=== PATIENT | male | born 1975 | race American Indian/Alaskan Native ===

== ENCOUNTER 2020-09-10 05:52 | Inpatient (IN) | payer MEDICARE ==
--- NOTE | 2020-09-10 07:39 | Event Note ---
ED Screening Note ED Screening Note: hx HIV and hyperthyroid disease co leg and feet cramps Has had low Mg in past RX thyroid HIV med NSide inpt 2 weeks [facility] -they did nothing but labs- saw doctor- pt was dc home (unclear what was done) This initial assessment/diagnostic orders/clinical plan/treatment(s) is/are subject to change based on patients health status, clinical progression and re- assessment by fellow clinical providers in the ED. Further treatment and workup at subsequent clinical providers discretion. Patient/guardian urged not to elope from the ED as their condition may be serious if not clinically assessed and managed. Initial orders include: labs
[2020-09-10 08:29] LABS: Hematocrit 43.7 % (35.5-45.6); Hemoglobin 15.2 gm/dl (11.8-15.2); Mean Corpuscular HGB Conc 35 % (32-34); Mean Corpuscular Volume 81 fl (84-94); Platelet Count 189 K/mm3 (140-440); Red Blood Count 5.43 M/mm3 (3.65-5.03); Red Cell Distribution Width 13.8 % (13.2-15.2)
[2020-09-10 08:48] LABS: Alanine Aminotransferase 24 units/L (7-56); Albumin 4.5 g/dL (3.9-5); Blood Urea Nitrogen 11 mg/dL (9-20); Calcium 9.7 mg/dL (8.4-10.2); Hemolysis Index 9
[2020-09-10 08:54] LABS: BUN/Creatinine Ratio 16
[2020-09-10] MEDS ORDERED: MAGNESIUM SULFATE 2 GM/50 ML BAG IV ONE (09:05)
[2020-09-10] MEDS ORDERED: SODIUM CHLORIDE 0.9% 1000 ML 1,000 ML IV ONE (09:05)
--- NOTE | 2020-09-10 10:48 | Emergency Department Report ---
HPI - General Chief Complaint: Extremity Injury, Lower Time Seen by Provider: 09/10/20 07:39 - HPI HPI: 44-year-old male with history of hypertension hyperthyroidism on methimazole presents complaining of approximately 2 days of bilateral lower extremity pain, heaviness, and abnormal gait. He states that he feels off balance. He denies any associated dizziness. He also says that for the last 3 weeks he has noticed that he has a right sided facial droop. Has not tried anything for symptoms. He is taking his medications as prescribed. He denies any associated vision change, headache, neck pain, back pain, chest pain, shortness of breath, cough, abdominal pain, nausea/vomiting, focal unilateral weakness, numbness, or any other complaints. ED Past Medical Hx - Past Medical History Previous Medical History?: No Hx Hypertension: Yes Additional medical history: Hyperthyroidism on methimazole - Surgical History Past Surgical History?: Yes Additional Surgical History: Hernia - Social History Smoking Status: Never Smoker Substance Use Type: None - Medications Home Medications: Home Medications Medication Instructions Recorded Confirmed Last Taken Type Biktarvy 50-200-25 mg (Nf) 09/10/20 Unknown History Methimazole [Tapazole] 10 mg PO Q8H 09/10/20 09/10/20 Unknown History ED Review of Systems ROS: Stated complaint: PAIN BOTTOM OF FEET/LT KNEE Other details as noted in HPI Constitutional: denies: chills, fever Eyes: denies: eye pain, vision change ENT: denies: throat pain, congestion Respiratory: denies: cough, shortness of breath Cardiovascular: denies: chest pain, palpitations Gastrointestinal: denies: abdominal pain, nausea, vomiting Genitourinary: denies: dysuria, frequency Musculoskeletal: other (bilateral lower extremity pain). denies: back pain, myalgia Skin: denies: rash Neurological: abnormal gait, other (Feels off balance). denies: headache, numbness Physical Exam - Physical Exam Vital Signs: Vital Signs 09/10/20 06:07 Temperature 97.5 F L Pulse Rate 74 Respiratory 16 Rate Blood Pressure 142/95 O2 Sat by Pulse 99 Oximetry Physical Exam: GENERAL: Well developed and well nourished. No acute distress HEENT: Normocephalic. No obvious signs of trauma. Moist mucous membranes. EYES: Extraocular movements are intact. Pupils are equal round and reactive to light bilaterally. Bilateral exophthalmos NECK: Supple. Trachea is midline. LUNGS: Nonlabored breathing. Equal chest rise bilaterally. Clear to auscultation bilaterally. HEART/CARDIOVASCULAR: Regular rate and rhythm. No murmurs or rubs. VASCULAR: 2+ peripheral pulses. ABDOMEN: Abdomen is soft and nondistended. There is no significant tenderness, guarding or rebound. SKIN: Skin is warm and dry NEURO: Patient is awake, alert, and oriented. There is right facial droop involving both the upper and lower parts of the face. Otherwise comprehensive motor and sensory exam was normal. Normal [id number]. Normal zmew-kb-xwqk bilaterally. Normal speech. MUSCULOSKELETAL: No obvious deformities. No significant tenderness. Normal ROM throughout. . ED Course Vital Signs 09/10/20 06:07 Temperature 97.5 F L Pulse Rate 74 Respiratory 16 Rate Blood Pressure 142/95 O2 Sat by Pulse 99 Oximetry ED Medical Decision Making - Lab Data Result diagrams: 09/10/20 11:55 09/10/20 08:02 - EKG Data -: EKG Interpreted by Tn - EKG Data 09/10/20 12:09 Normal sinus rhythm. Normal axis. First-degree AV block, otherwise normal intervals. No ectopy. No significant ST segment or T wave abnormalities. - Radiology Data CT BRAIN: 09/10/2020 INDICATION / CLINICAL INFORMATION: Stroke symptoms. COMPARISON: None available. FINDINGS: BRAIN/INTRACRANIAL STRUCTURES: Unenhanced CT images of the brain demonstrate no evidence of acute intracranial abnormality. Ventricles and sulci are normal in size and shape. There is no evidence of ischemic injury, hemorrhage, or mass. There are no abnormal extra- axial fluid collections. EXTRACRANIAL STRUCTURES: Unremarkable. IMPRESSION: Negative unenhanced CT of the brain. All CT scans at this location are performed using dose reduction to ALARA by means of automated ex posure control. Signer Name: Lucas Soto MD Signed: 09/10/2020 10:28 AM Workstation Name: [id number] - Medical Decision Making 44-year-old male history of hypothyroidism and hypertension presents complaining of approximately 2 days of bilateral lower extremity pain and unsteady gait. He reports that he did not know about his unsteady gait until today in triage. He is also noted to have a right facial droop on exam but he says that has been present for 3 weeks. On physical examination, he has a mild right facial droop but the motor and sensory exams are normal. He has a normal slgkwa-hxaq-dticly and normal ewqq-hx-ixyx bilaterally. Given that he is outside the window for any kind of intervention, stroke alert was not called. Nonetheless we will perform full stroke work-up with labs and CT as well as bilateral DVT ultrasound. If initial head CT is negative for ICH will give aspirin Noncon CT of the head reveals no evidence of ICH or other acute abnormalities. We will therefore administer aspirin. I went and reassessed the patient and had him walk in front of me, he is noted to have an unsteady gait with very small steps. In light of this, will obtain teleneurology consult for further recommendations. I spoke with Dr. Baker, teleneurologist who has seen and assessed the patient. He also feels that the patient has an abnormal neurologic exam but is nonspecific. He did not detect a right facial droop. He recommends admission for broad work-up with MRI and further labs. We will therefore admit to medicine for further work-up and management. All this was discussed with the patient who expressed understanding agreement with the plan of care. I spoke with Dr. Moore, the hospitalist who accepts the patient for admission and will assume care. He understands that bilateral DVT ultrasounds are still pending. I did reassess the patient at Dr. Baker's advice and noted that the patient is hyporeflexive with 1+ deep tendon reflexes at the patella bilaterally. Critical care attestation.: If time is entered above; I have spent that time in minutes in the direct care of this critically ill patient, excluding procedure time. ED Disposition Clinical Impression: Gait disturbance, Balance disorder Disposition: OP ADMIT IP TO THIS HOSP Is pt being admited?: Yes Condition: Stable
--- NOTE | 2020-09-10 11:33 | Cat Scan Report ---
CT BRAIN: 09/10/2020 INDICATION / CLINICAL INFORMATION: Stroke symptoms. COMPARISON: None available. FINDINGS: BRAIN/INTRACRANIAL STRUCTURES: Unenhanced CT images of the brain demonstrate no evidence of acute int racranial abnormality. Ventricles and sulci are normal in size and shape. There is no evidence of ischemic injury, hemorrhage, or mass. There are no abnormal extra-axial fluid collections. EXTRACRANIAL STRUCTURES: Unremarkable. IMPRESSION: Negative unenhanced CT of the brain. All CT scans at this location are performed using dose reduction to ALARA by means of automated expos ure control. Signer Name: Lucas Soto MD Signed: 09/10/2020 11:28 AM Workstation Name: [id number]
[2020-09-10] MEDS ORDERED: ASPIRIN 325 MG TAB PO ONE (12:06)
[2020-09-10 12:43] LABS: Basophils % (Auto) 0.6 % (0.0-1.8); Eosinophils # (Auto) 0.2 K/mm3 (0.0-0.4); Hematocrit 45.4 % (35.5-45.6); Lymphocytes # (Auto) 1.5 K/mm3 (1.2-5.4); Lymphocytes % (Auto) 40.9 % (13.4-35.0); Mean Corpuscular HGB Conc 33 % (32-34); Mean Corpuscular Volume 82 fl (84-94); Monocytes # (Auto) 0.5 K/mm3 (0.0-0.8); Monocytes % (Auto) 13.1 % (0.0-7.3); Platelet Count 183 K/mm3 (140-440); Red Blood Count 5.54 M/mm3 (3.65-5.03); Red Cell Distribution Width 13.6 % (13.2-15.2)
[2020-09-10 12:58] LABS: INR 1.13 (0.87-1.13)
[2020-09-10 12:59] LABS: Partial Thromboplastin Time 28.6 Sec. (24.2-36.6); Thrombin Time 16.1 Sec. (15.1-19.6)
--- NOTE | 2020-09-10 13:05 | Consultation ---
History of Present Illness Consult date: 09/10/20 Medications and Allergies Allergies Allergy/AdvReac Type Severity Reaction Status Date / Time No Known Allergies Allergy Verified 02/02/16 07:29 Home Medications Medication Instructions Recorded Confirmed Last Taken Type No Known Home Medications [No 02/01/16 02/01/16 Unknown History Reported Home Medications] Physical Examination - Vital Signs Vital Signs: Vital Signs Temp Pulse Resp BP Pulse Ox 97.5 F L 74 16 142/95 99 09/10/20 06:07 09/10/20 06:07 09/10/20 06:07 09/10/20 06:07 09/10/20 06:07 Results - Laboratory Findings CBC and BMP: 09/10/20 11:55 09/10/20 08:02 Abnormal Lab Findings: Abnormal Labs 09/10/20 09/10/20 09/10/20 08:02 08:02 08:02 WBC RBC 5.43 H MCV 81 L MCH MCHC 35 H Lymph % (Auto) [place] % (Auto) Eos % (Auto) Seg Neutrophils # PT Creatinine 0.7 L Total Bilirubin 2.20 H Alkaline Phosphatase 138 H TSH Free T4 1.68 H 09/10/20 09/10/20 09/10/20 08:02 11:55 11:55 WBC 3.8 L RBC 5.54 H MCV 82 L MCH 27 L MCHC Lymph % (Auto) 40.9 H [place] % (Auto) 13.1 H Eos % (Auto) 5.0 H Seg Neutrophils # 1.5 L PT 15.1 H Creatinine Total Bilirubin Alkaline Phosphatase TSH < 0.005 L Free T4 Assessment and Plan [facility] Consult Note # Demographics Consult Type: General Neurology Patient Location: Emergency Room First Name: Rex Last Name: Eb Date of : 1975 Age: 44 Gender: Male Time of Initial Page (Eastern Time): 09/10/2020, 12:13 Time of Return Call (Eastern Time): 09/10/2020, 12:21 # HPI History: 44 yo man with history of hyperthyroidism presents with bilateral leg pain, unsteadiness, right facial droop for a few days. According to the pateint his symptoms started 2 days ago with pain from the knees to the toes. He has been unsteady on his feet and has fallen. # Exam SBP: 130 DBP: 83 Mental Status: sleepy Language: no aphasia no dysarthria Cranial Nerves: extra ocular movements intact no facial droop Motor: no drift Sensory: Reported decreased sensation in lower extremities from knees down Additional Exam Findings: Somnolent, difficulty staying awake. Exam limited by inherent limitation of telemedicine (unable to test sensation, reflexes, mild weakness) as well as patient being somnolent and difficulty staying awake, unable to provide coherrent history # ROS Genitourinary: Denies any urinary or fecal incontinence # Assessment Impression: Leg pain and unsteadiness causing difficulty walking and falls. Exam and history is limited by patient being somnolent with difficulty staying awake. # Plan Labs: B12 Tox screen Imaging: (urgency: routine): MRI Brain with AND without contrast MRI C spine MRI T spine MRI L spine Therapy/Evaluation: NPO until swallow evaluation PT/OT evaluation DVT Prophylaxis: SCD chemical DVT prophylaxis Other: telemetry monitoring I have discussed my recommendations with the referring provider Recommendations: Admit for further workup Metabolic and infectious workup Tox screen MRI brain and C,T, L spine (with and without contrast) Labwork for neuropathy: B12 level, CK level, Hgb A1c, HIV, SPEP, UPEP, RENNY Disposition: admit # Logistics Telemedicine: Interactive 2 way audio and visual telecommunication technology was utilized during this visit
[2020-09-10 13:07] LABS: Creatine Kinase MB 19.4 ng/mL (0.0-4.0)
--- NOTE | 2020-09-10 15:30 | Vascular Lab Report ---
DUPLEX DOPPLER LOWER EXTREMITY VEINS, BILATERAL INDICATION / CLINICAL INFORMATION: lower extremity pain. TECHNIQUE: Duplex doppler imaging was performed through the veins of both lower extremities using venous rut catracho and other maneuvers. COMPARISON: None available. FINDINGS: RIGHT COMMON FEMORAL VEIN: Negative. RIGHT FEMORAL VEIN: Negative. RIGHT POPLITEAL VEIN: Negative. RIGHT CALF VEINS: Negative. LEFT COMMON FEMORAL VEIN: Negative. LEFT FEMORAL VEIN: Negative. LEFT POPLITEAL VEIN: Negative. LEFT CALF VEINS: Negative. ADDITIONAL FINDINGS: Prominent lymph nodes in the right groin measures 1 cm short axis, not technical ly enlarged according to ultrasound criteria. IMPRESSION: 1. No sonographic evidence for DVT in either lower extremity. Signer Name: Archie Mcnally MD Signed: 09/10/2020 3:25 PM Workstation Name: [id number]
[2020-09-10 21:19] LABS: Bilirubin,Urine NEG (Negative); Blood,Urine NEG (Negative); Color,Urine Yellow (Yellow); Mucus,Urine FEW /HPF; WBC,Urine < 1.0 /HPF (0.0-6.0)
[2020-09-10 21:27] LABS: Amphetamine Screen,Urine Negative; Benzodiazepines Screen,Urine Negative; Cannabinoid Screen,Urine Negative; Cocaine Screen,Urine Negative; Methadone Screen,Urine Negative; Opiate Screen,Urine Negative
[2020-09-10] MEDS ORDERED: IBUPROFEN 600 MG TAB PO PRN (21:52)
[2020-09-10] MEDS ORDERED: methIMAzole 5 MG TAB PO SCH (22:00)
[2020-09-10] MEDS ORDERED: ACETAMINOPHEN 325 MG TAB PO PRN (22:11)
[2020-09-10] MEDS ORDERED: METOCLOPRAMIDE 10 MG/2 ML INJ IV PRN (22:11)
[2020-09-10] MEDS ORDERED: HYDROmorphone 1 MG/1 ML INJ IV PRN (22:11)
[2020-09-10] MEDS ORDERED: ONDANSETRON 4 MG/2 ML INJ IV PRN (22:11)
--- NOTE | 2020-09-10 22:47 | History and Physical Report ---
History of Present Illness Date of examination: 09/10/20 Date of admission: 09/10/20 13:54 Chief complaint: Palpitation and unsteady gait for the last 1 week History of present illness: 44-year-old male with history of hypertension hypothyroidism on methimazole 10 mg 3 times a day comes in for 2 days of bilateral lower extremity pain and weakness and heaviness. Also unsteady gait. He states that he feels off balance. Patient was diagnosed with hypothyroidism 2 months ago and was started on methimazole 10 mg 3 times a day. Patient states that is compliant with methimazole. Patient is also concerned about his bulging eyes. No thyroid swelling. Patient has history of HIV. Pain below the knees and weakness below the knees and also both thighs. Is unsteady because of his weakness in both the legs. - Past Medical History Previous Medical History?: No --Hypertension: Yes Additional medical history: Hyperthyroidism on methimazole - Surgical History Hernia - Social History Smoking Status: Never Smoker Substance Use Type: None -Family history Htn - Medications Home Medications: Home Medications Medication Instructions Recorded Confirmed Last Taken Type No Known Home Medications [No 02/01/16 02/01/16 Unknown History Reported Home Medications] Review of Systems ROS: Stated complaint: PAIN BOTTOM OF FEET/LT KNEE Other details as noted in HPI Constitutional: denies: chills, fever Eyes: denies: eye pain, vision change ENT: denies: throat pain, congestion Respiratory: denies: cough, shortness of breath Cardiovascular: denies: chest pain, palpitations Gastrointestinal: denies: abdominal pain, nausea, vomiting Genitourinary: denies: dysuria, frequency Musculoskeletal: other (bilateral lower extremity pain). Weakness and myalgias present. Skin: denies: rash Neurological: abnormal gait, other (Feels off balance). denies: headache, numbness Medications and Allergies Allergies Allergy/AdvReac Type Severity Reaction Status Date / Time No Known Allergies Allergy Verified 02/02/16 07:29 Home Medications Medication Instructions Recorded Confirmed Last Taken Type Biktarvy 50-200-25 mg (Nf) 1 mg PO QDAY 09/10/20 09/11/20 09/08/20 09:00 History Methimazole [Tapazole] 10 mg PO Q8H 09/10/20 09/11/20 09/09/20 09:00 History Active Meds: Active Medications Acetaminophen (Acetaminophen 325 Mg Tab) 650 mg PO Q4H PRN PRN Reason: Pain MILD(1-3)/Fever >100.5/PADRON Hydromorphone HCl (Hydromorphone 1 Mg/1 Ml Inj) 0.5 mg IV Q3H PRN PRN Reason: Pain , Severe (7-10) Sodium Chloride (Nacl 0.9% 1000 Ml) 1,000 mls @ 125 mls/hr IV DIRECT ETELVINA Ibuprofen (Ibuprofen 600 Mg Tab) 600 mg PO Q6H PRN PRN Reason: Pain, Mild (1-3) Last Admin: 09/10/20 22:25 Dose: 600 mg Documented by: Methimazole (Methimazole 5 Mg Tab) 20 mg PO Q8H ETELVINA Metoclopramide HCl (Metoclopramide 10 Mg/2 Ml Inj) 10 mg IV Q6H PRN PRN Reason: Nausea And Vomiting Ondansetron HCl (Ondansetron 4 Mg/2 Ml Inj) 4 mg IV Q8H PRN PRN Reason: Nausea And Vomiting Oxycodone/Acetaminophen (Oxycodone /Acetaminophen 5-325mg Tab) 1 tab PO Q6H PRN PRN Reason: Pain, Moderate (4-6) Propranolol HCl (Propranolol 10 Mg Tab) 20 mg PO Q12HR ETELVINA Propylthiouracil (Propylthiouracil 50 Mg Tab) 100 mg PO Q8H ETELVINA Sodium Chloride (Sodium Chloride 0.9% 10 Ml Flush Syringe) 10 ml IV BID ETELVINA Sodium Chloride (Sodium Chloride 0.9% 10 Ml Flush Syringe) 10 ml IV PRN PRN PRN Reason: LINE FLUSH Exam - Constitutional Vitals: Temp Pulse Resp BP Pulse Ox 97.4 F L 107 H 17 111/63 100 09/10/20 21:00 09/10/20 22:10 09/10/20 22:25 09/10/20 22:10 09/10/20 22:10 General appearance: Present: no acute distress, well-nourished - EENT Eyes: Present: PERRL ENT: hearing intact, clear oral mucosa, other (Exophthalmos present) - Neck Neck: Present: supple, normal ROM - Respiratory Respiratory effort: normal Respiratory: bilateral: CTA - Cardiovascular Heart rate: 98 Rhythm: regular Heart Sounds: Present: S1 & S2. Absent: rub, click - Extremities Extremities: pulses symmetrical, No edema Peripheral Pulses: within normal limits - Abdominal General gastrointestinal: Present: soft, non-tender, non-distended, normal bowel sounds Male genitourinary: Present: normal - Integumentary Integumentary: Present: clear, warm, dry - Musculoskeletal Musculoskeletal: strength equal bilaterally, generalized weakness, other (4/5 power in both lower extremities distal and proximal muscles) - Psychiatric Psychiatric: appropriate mood/affect, intact judgment & insight - Neurologic Neurologic: CNII-XII intact, moves all extremities, gait normal (Unsteady gait secondary to weakness in both lower extremities) - Allied Health Allied health notes reviewed: nursing, PT, OT, case management HEART Score - HEART Score Troponin: Troponin T < 0.010 ng/mL (0.00-0.029) 09/10/20 11:55 Results - Labs CBC & Chem 7: 09/11/20 04:54 09/11/20 04:54 Labs: Laboratory Last Values WBC 3.8 K/mm3 (4.5-11.0) L 09/10/20 11:55 RBC 5.54 M/mm3 (3.65-5.03) H 09/10/20 11:55 Hgb 15.0 gm/dl (11.8-15.2) 09/10/20 11:55 Hct 45.4 % (35.5-45.6) 09/10/20 11:55 MCV 82 fl (84-94) L 09/10/20 11:55 MCH 27 pg (28-32) L 09/10/20 11:55 MCHC 33 % (32-34) 09/10/20 11:55 RDW 13.6 % (13.2-15.2) 09/10/20 11:55 Plt Count 183 K/mm3 (140-440) 09/10/20 11:55 Lymph % (Auto) 40.9 % (13.4-35.0) H 09/10/20 11:55 [place] % (Auto) 13.1 % (0.0-7.3) H 09/10/20 11:55 Eos % (Auto) 5.0 % (0.0-4.3) H 09/10/20 11:55 Baso % (Auto) 0.6 % (0.0-1.8) 09/10/20 11:55 Lymph # (Auto) 1.5 K/mm3 (1.2-5.4) 09/10/20 11:55 [place] # (Auto) 0.5 K/mm3 (0.0-0.8) 09/10/20 11:55 Eos # (Auto) 0.2 K/mm3 (0.0-0.4) 09/10/20 11:55 Baso # (Auto) 0.0 K/mm3 (0.0-0.1) 09/10/20 11:55 Seg Neutrophils % 40.4 % (40.0-70.0) 09/10/20 11:55 Seg Neutrophils # 1.5 K/mm3 (1.8-7.7) L 09/10/20 11:55 PT 15.1 Sec. (12.2-14.9) H 09/10/20 11:55 INR 1.13 (0.87-1.13) 09/10/20 11:55 APTT 28.6 Sec. (24.2-36.6) 09/10/20 11:55 Thrombin Time 16.1 Sec. (15.1-19.6) 09/10/20 11:55 Sodium 137 mmol/L (137-145) 09/10/20 08:02 Potassium 4.5 mmol/L (3.6-5.0) 09/10/20 08:02 Chloride 98.7 mmol/L (98-107) 09/10/20 08:02 Carbon Dioxide 29 mmol/L (22-30) 09/10/20 08:02 Anion Gap 14 mmol/L 09/10/20 08:02 BUN 11 mg/dL (9-20) 09/10/20 08:02 Creatinine 0.7 mg/dL (0.8-1.3) L 09/10/20 08:02 Estimated GFR > 60 ml/min 09/10/20 08:02 BUN/Creatinine Ratio 16 % 09/10/20 08:02 Glucose 82 mg/dL (75-100) 09/10/20 08:02 Calcium 9.7 mg/dL (8.4-10.2) 09/10/20 08:02 Phosphorus 3.40 mg/dL (2.5-4.5) 09/10/20 08:02 Magnesium 1.90 mg/dL (1.7-2.3) 09/10/20 08:02 Total Bilirubin 2.20 mg/dL (0.1-1.2) H 09/10/20 08:02 AST 32 units/L (5-40) 09/10/20 08:02 ALT 24 units/L (7-56) 09/10/20 08:02 Alkaline Phosphatase 138 units/L (35-129) H 09/10/20 08:02 Total Creatine Kinase 484 units/L (55-170) H 09/10/20 11:55 CK-MB (CK-2) 19.4 ng/mL (0.0-4.0) H 09/10/20 11:55 CK-MB (CK-2) Rel Index 4.0 (0-4) 09/10/20 11:55 Troponin T < 0.010 ng/mL (0.00-0.029) 09/10/20 11:55 Total Protein 7.5 g/dL (6.3-8.2) 09/10/20 08:02 Albumin 4.5 g/dL (3.9-5) 09/10/20 08:02 Albumin/Globulin Ratio 1.5 % 09/10/20 08:02 TSH < 0.005 mlU/mL (0.270-4.200) L 09/10/20 08:02 Free T4 1.68 ng/dL (0.76-1.46) H 09/10/20 08:02 Urine Color Yellow (Yellow) 09/10/20 20:49 Urine Turbidity Clear (Clear) 09/10/20 20:49 Urine pH 5.0 (5.0-7.0) 09/10/20 20:49 Ur Specific [place] 1.021 (1.003-1.030) 09/10/20 20:49 Urine Protein 30 mg/dl mg/dL (Negative) 09/10/20 20:49 Urine Glucose (UA) Neg mg/dL (Negative) 09/10/20 20:49 Urine Ketones 20 mg/dL (Negative) 09/10/20 20:49 Urine Blood Neg (Negative) 09/10/20 20:49 Urine Nitrite Neg (Negative) 09/10/20 20:49 Urine Bilirubin Neg (Negative) 09/10/20 20:49 Urine Urobilinogen 4.0 mg/dL (<2.0) 09/10/20 20:49 Ur Leukocyte Esterase Neg (Negative) 09/10/20 20:49 Urine WBC (Auto) < 1.0 /HPF (0.0-6.0) 09/10/20 20:49 Urine RBC (Auto) 1.0 /HPF (0.0-6.0) 09/10/20 20:49 Urine Mucus Few /HPF 09/10/20 20:49 Urine Opiates Screen Negative 09/10/20 20:49 Urine Methadone Screen Negative 09/10/20 20:49 Ur Barbiturates Screen Negative 09/10/20 20:49 Ur Phencyclidine Scrn Negative 09/10/20 20:49 Ur Amphetamines Screen Negative 09/10/20 20:49 U Benzodiazepines Scrn Negative 09/10/20 20:49 Urine Cocaine Screen Negative 09/10/20 20:49 U Marijuana (THC) Screen Negative 09/10/20 20:49 Drugs of Abuse Note Disclamer 09/10/20 20:49 Plasma/Serum Alcohol < 0.01 % (0-0.07) 09/10/20 11:55 Short CBC 09/10/20 09/10/20 09/11/20 Range/Units 08:02 11:55 04:54 WBC 4.6 3.8 L 4.0 L (4.5-11.0) K/mm3 Hgb 15.2 15.0 14.0 (11.8-15.2) gm/dl Hct 43.7 45.4 42.6 (35.5-45.6) % Plt Count 189 183 187 (140-440) K/mm3 [facility] 09/10/20 09/11/20 08:02 04:54 Sodium 137 140 Potassium 4.5 4.2 Chloride 98.7 103.8 Carbon Dioxide 29 28 BUN 11 11 Creatinine 0.7 L 0.7 L Glucose 82 97 Calcium 9.7 8.3 L Cardiac Enzymes 09/10/20 Range/Units 11:55 Total Creatine Kinase 484 H (55-170) units/L CK-MB (CK-2) 19.4 H (0.0-4.0) ng/mL Troponin T < 0.010 (0.00-0.029) ng/mL Liver Function 09/10/20 09/11/20 Range/Units 08:02 04:54 Total Bilirubin 2.20 H 1.30 H (0.1-1.2) mg/dL AST 32 20 (5-40) units/L ALT 24 18 (7-56) units/L Alkaline Phosphatase 138 H 124 (35-129) units/L Albumin 4.5 3.6 L (3.9-5) g/dL Urine 09/10/20 Range/Units 20:49 Urine Color Yellow (Yellow) Urine pH 5.0 (5.0-7.0) Ur Specific [place] 1.021 (1.003-1.030) Urine Protein 30 mg/dl (Negative) mg/dL Urine Glucose (UA) Neg (Negative) mg/dL Assessment and Plan Advance Directives: Yes (Full code) VTE prophylaxis?: Chemical Plan of care discussed with patient/family: Yes - Patient Problems (1) Thyrotoxicosis Current Visit: Yes Status: Acute Plan to address problem: Patient's methimazole was increased from 10 mg to 20 mg 3 times a day Max dose that can be used is a 60 mg/day Patient has I T4 and low TSH Patient needs radioactive iodine uptake as outpatient/follow-up with endocrinology for ablation of thyroid activity Propylthiouracil 100 mg 3 times a day added Propranolol 20 mg twice a day added (2) Myopathy Current Visit: Yes Status: Acute Plan to address problem: 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 Patient is unsteady because of his myopathy Does not need extensive neurology work-up as suggested by telemetry neurology Will defer to in-house neurology (3) Rhabdomyolysis Current Visit: Yes Status: Acute Qualifiers: Rhabdomyolysis type: non-traumatic Qualified Code(s): M62.82 - Rhabdomyolysis Plan to address problem: IV fluids for now (4) Unsteady gait Current Visit: Yes Status: Acute Plan to address problem: Probably secondary to myopathy Neurological causes to be ruled out (5) HIV (human immunodeficiency virus infection) Current Visit: Yes Status: Chronic Qualifiers: HIV symptom status: asymptomatic, with no history of HIV-related illness Qualified Code(s): Z21 - Asymptomatic human immunodeficiency virus [HIV] infection status Plan to address problem: Continue Biktarvy (6) DVT prophylaxis Current Visit: Yes Status: Acute Plan to address problem: On heparin and GI prophylaxis
[2020-09-10] MEDS: propylthiouraciL 50 MG TAB PO SCH (23:22)
[2020-09-10] MEDS: methIMAzole 5 MG TAB PO SCH (23:23)
[2020-09-10] MEDS: SODIUM CHLORIDE 0.9% 1000 ML 1,000 ML IV SCH (23:24)
[2020-09-10] MEDS: PROPRANOLOL 10 MG TAB PO SCH (23:28)
[2020-09-11 05:12] LABS: Hematocrit 42.6 % (35.5-45.6); Mean Corpuscular HGB Conc 33 % (32-34); Mean Corpuscular Volume 82 fl (84-94); Platelet Count 187 K/mm3 (140-440); Red Blood Count 5.21 M/mm3 (3.65-5.03); Red Cell Distribution Width 13.7 % (13.2-15.2)
[2020-09-11 05:40] LABS: Alanine Aminotransferase 18 units/L (7-56); Albumin 3.6 g/dL (3.9-5); Blood Urea Nitrogen 11 mg/dL (9-20); Calcium 8.3 mg/dL (8.4-10.2); Hemolysis Index 5
[2020-09-11 05:49] LABS: BUN/Creatinine Ratio 16
[2020-09-11] MEDS: propylthiouraciL 50 MG TAB PO SCH ×3 (06:21→23:03)
[2020-09-11] MEDS: methIMAzole 5 MG TAB PO SCH ×3 (06:24→23:03)
--- NOTE | 2020-09-11 07:13 | Event Note ---
Date: 09/10/20 Telemetry neurology notes reviewed Suggested multiple imaging studies In view of myopathy I feel these tests are unnecessary Will defer to in-house neurology
--- NOTE | 2020-09-11 09:47 | Consultation ---
History of Present Illness Consult date: 09/11/20 Reason for Consult: Unsteady gait and weakness History of present illness: Palpitation and unsteady gait for the last 1 week History of present illness: 44-year-old male with history of hypertension hyperthyroidism on methimazole 10 mg 3 times a day comes in for 2 days of bilateral lower extremity pain and weakness and heaviness. Also unsteady gait. He states that he feels off balance. Patient was diagnosed with hypothyroidism 2 months ago and was started on methimazole 10 mg 3 times a day. Patient states that is compliant with methimazole. Patient is also concerned about his bulging eyes. No thyroid swel ling. Patient has history of HIV. Pain below the knees and weakness below the knees and also both thighs. Is unsteady because of his weakness in both the legs. - Past Medical History Previous Medical History?: No --Hypertension: Yes Additional medical history: Hyperthyroidism on methimazole - Surgical History Hernia - Social History Smoking Status: Never Smoker Substance Use Type: None -Family history Htn - Medications Home Medications: Home Medications Medication Instructions Recorded Confirmed Last Taken Type No Known Home Medications [No 02/01/16 02/01/16 Unknown History Reported Home Medications] Review of Systems ROS: Stated complaint: PAIN BOTTOM OF FEET/LT KNEE Other details as noted in HPI Constitutional: denies: chills, fever Eyes: denies: eye pain, vision change ENT: denies: throat pain, congestion Respiratory: denies: cough, shortness of breath Cardiovascular: denies: chest pain, palpitations Gastrointestinal: denies: abdominal pain, nausea, vomiting Genitourinary: denies: dysuria, frequency Musculoskeletal: other (bilateral lower extremity pain). Weakness and myalgias present. Skin: denies: rash Neurological: abnormal gait, other (Feels off balance). denies: headache, numbness Medications and Allergies Allergies Allergy/AdvReac Type Severity Reaction Status Date / Time No Known Allergies Allergy Verified 02/02/16 07:29 Home Medications Medication Instructions Recorded Confirmed Last Taken Type Biktarvy 50-200-25 mg (Nf) 1 mg PO QDAY 09/10/20 09/11/20 09/08/20 09:00 History Methimazole [Tapazole] 10 mg PO Q8H 09/10/20 09/11/20 09/09/20 09:00 History Active Meds: Active Medications Acetaminophen (Acetaminophen 325 Mg Tab) 650 mg PO Q4H PRN PRN Reason: Pain MILD(1-3)/Fever >100.5/PADRON Hydromorphone HCl (Hydromorphone 1 Mg/1 Ml Inj) 0.5 mg IV Q3H PRN PRN Reason: Pain , Severe (7-10) Sodium Chloride (Nacl 0.9% 1000 Ml) 1,000 mls @ 125 mls/hr IV DIRECT ETELVINA Ibuprofen (Ibuprofen 600 Mg Tab) 600 mg PO Q6H PRN PRN Reason: Pain, Mild (1-3) Last Admin: 09/10/20 22:25 Dose: 600 mg Documented by: Methimazole (Methimazole 5 Mg Tab) 20 mg PO Q8H ETELVINA Metoclopramide HCl (Metoclopramide 10 Mg/2 Ml Inj) 10 mg IV Q6H PRN PRN Reason: Nausea And Vomiting Ondansetron HCl (Ondansetron 4 Mg/2 Ml Inj) 4 mg IV Q8H PRN PRN Reason: Nausea And Vomiting Oxycodone/Acetaminophen (Oxycodone /Acetaminophen 5-325mg Tab) 1 tab PO Q6H PRN PRN Reason: Pain, Moderate (4-6) Propranolol HCl (Propranolol 10 Mg Tab) 20 mg PO Q12HR ETELVINA Propylthiouracil (Propylthiouracil 50 Mg Tab) 100 mg PO Q8H ETELVINA Sodium Chloride (Sodium Chloride 0.9% 10 Ml Flush Syringe) 10 ml IV BID ETELVINA Sodium Chloride (Sodium Chloride 0.9% 10 Ml Flush Syringe) 10 ml IV PRN PRN PRN Reason: LINE FLUSH Medications and Allergies Allergies Allergy/AdvReac Type Severity Reaction Status Date / Time No Known Allergies Allergy Verified 02/02/16 07:29 Home Medications Medication Instructions Recorded Confirmed Last Taken Type Biktarvy 50-200-25 mg (Nf) 1 mg PO QDAY 09/10/20 09/11/20 09/08/20 09:00 History Methimazole [Tapazole] 10 mg PO Q8H 09/10/20 09/11/20 09/09/20 09:00 History Active Meds: Active Medications Acetaminophen (Acetaminophen 325 Mg Tab) 650 mg PO Q4H PRN PRN Reason: Pain MILD(1-3)/Fever >100.5/PADRON Emtricitabine (Emtricitabine 200 Mg Cap) 200 mg PO QDAY PENDING SALE TO [facility] Hydromorphone HCl (Hydromorphone 1 Mg/1 Ml Inj) 0.5 mg IV Q3H PRN PRN Reason: Pain , Severe (7-10) Sodium Chloride (Nacl 0.9% 1000 Ml) 1,000 mls @ 125 mls/hr IV DIRECT PENDING SALE TO [facility] Last Admin: 09/10/20 23:24 Dose: 125 mls/hr Documented by: Ibuprofen (Ibuprofen 600 Mg Tab) 600 mg PO Q6H PRN PRN Reason: Pain, Mild (1-3) Last Admin: 09/10/20 22:25 Dose: 600 mg Documented by: Methimazole (Methimazole 5 Mg Tab) 20 mg PO Q8HR PENDING SALE TO [facility] Last Admin: 09/11/20 06:24 Dose: 20 mg Documented by: Metoclopramide HCl (Metoclopramide 10 Mg/2 Ml Inj) 10 mg IV Q6H PRN PRN Reason: Nausea And Vomiting Ondansetron HCl (Ondansetron 4 Mg/2 Ml Inj) 4 mg IV Q8H PRN PRN Reason: Nausea And Vomiting Oxycodone/Acetaminophen (Oxycodone /Acetaminophen 5-325mg Tab) 1 tab PO Q6H PRN PRN Reason: Pain, Moderate (4-6) Propranolol HCl (Propranolol 10 Mg Tab) 20 mg PO Q12HR PENDING SALE TO [facility] Last Admin: 09/10/20 23:28 Dose: 20 mg Documented by: Propylthiouracil (Propylthiouracil 50 Mg Tab) 100 mg PO Q8HR PENDING SALE TO [facility] Last Admin: 09/11/20 06:21 Dose: 100 mg Documented by: Sodium Chloride (Sodium Chloride 0.9% 10 Ml Flush Syringe) 10 ml IV BID PENDING SALE TO [facility] Sodium Chloride (Sodium Chloride 0.9% 10 Ml Flush Syringe) 10 ml IV PRN PRN PRN Reason: LINE FLUSH Tenofovir Disoproxil Fumarate (Tenofovir 300 Mg Tab) 300 mg PO QDAY PENDING SALE TO [facility] Physical Examination - Vital Signs Vital Signs: Vital Signs Temp Pulse Resp BP Pulse Ox 97.5 F L 74 16 142/95 99 09/10/20 06:07 09/10/20 06:07 09/10/20 06:07 09/10/20 06:07 09/10/20 06:07 - Constitutional General appearance: uncomfortable - EENT EENT: Present: PERRL, mucous membranes moist - Respiratory Respiratory: Present: chest non-tender, lungs clear, rhonchi - Cardiovascular Cardiovascular: Present: regular rate, normal S1, normal S2 Extremities: Present: no peripheral edema bilatateraly, no clubbing, cyanosis - Gastrointestinal Gastrointestinal: Present: normoactive bowel sounds - Integumentary Integumentary: Present: normal - Neurologic Cranial nerve examination: anosmic, PERRL, EOMI, VFF, other (bulging eyes with EOM is intact , no facial asymmetry no facial weakness) Speech examination: intact Sensorimotor examination: intact (motor 4+/5 bilateral upper and lower with subjective sensory complain reflexes are suppressed, gait could not do due to IV ) Results - Laboratory Findings CBC and BMP: 09/11/20 04:54 09/11/20 04:54 Abnormal Lab Findings: Abnormal Labs 09/10/20 09/10/20 09/10/20 08:02 08:02 08:02 WBC RBC 5.43 H MCV 81 L MCH MCHC 35 H Lymph % (Auto) [place] % (Auto) Eos % (Auto) Seg Neutrophils # PT Creatinine 0.7 L Calcium Total Bilirubin 2.20 H Alkaline Phosphatase 138 H Total Creatine Kinase CK-MB (CK-2) Total Protein Albumin TSH Free T4 1.68 H 09/10/20 09/10/20 09/10/20 08:02 11:55 11:55 WBC 3.8 L RBC 5.54 H MCV 82 L MCH 27 L MCHC Lymph % (Auto) 40.9 H [place] % (Auto) 13.1 H Eos % (Auto) 5.0 H Seg Neutrophils # 1.5 L PT 15.1 H Creatinine Calcium Total Bilirubin Alkaline Phosphatase Total Creatine Kinase CK-MB (CK-2) Total Protein Albumin TSH < 0.005 L Free T4 09/10/20 09/11/20 09/11/20 11:55 04:54 04:54 WBC 4.0 L RBC 5.21 H MCV 82 L MCH 27 L MCHC Lymph % (Auto) [place] % (Auto) Eos % (Auto) Seg Neutrophils # PT Creatinine 0.7 L Calcium 8.3 L Total Bilirubin 1.30 H Alkaline Phosphatase Total Creatine Kinase 484 H CK-MB (CK-2) 19.4 H Total Protein 5.6 L D Albumin 3.6 L TSH Free T4 Assessment and Plan 44-year-old male with history of hypertension hypothyroidism on methimazole 10 mg 3 times a day comes in for 2 days of bilateral lower extremity pain and weakness and heaviness. Also unsteady gait. He states that he feels off balance. Patient was diagnosed with hyperthyroidism 2 months ago and was started on methimazole 10 mg 3 times a day. Patient states that is compliant with methimazole. Patient is also concerned about his bulging eyes. No thyroid swelling. Patient has history of HIV. Pain below the knees and weakness below the knees and also both thighs. Is unsteady because of his weakness in both the legs. Assessment and Plan Advance Directives: Yes (Full code) VTE prophylaxis?: Chemical Plan of care discussed with patient/family: Yes # Multiple complain including unsteady gait and numbness in feet associated with CP -Exam showed no focal weakness -but subjective sensory impairment in feet -Pt. thinks his magnesium is low -can not r/o GB syndrom ? Vs [facility] -will monitor -Check B12 , Folate,Magnesium -UDS is negative -Pt evaluate # Thyrotoxicosis Patient's methimazole was increased from 10 mg to 20 mg 3 times a day Max dose that can be used is a 60 mg/day Patient has I T4 and low TSH Patient needs radioactive iodine uptake as outpatient/follow-up with endocrinology for ablation of thyroid activity Propylthiouracil 100 mg 3 times a day added Propranolol 20 mg twice a day added # Rhabdomyolysis -CPK#484 mildly elevated could be related to thyrotoxicosis ?? -IV fluids for now # Unsteady gait - PT therapy # HIV (human immunodeficiency virus infection) -Continue Biktarvy # DVT prophylaxis -On heparin and GI prophylaxis
[2020-09-11] MEDS: SODIUM CHLORIDE 0.9% 1000 ML 1,000 ML IV SCH (09:52)
[2020-09-11] MEDS: PROPRANOLOL 10 MG TAB PO SCH ×2 (09:58→23:03)
[2020-09-11] MEDS: EMTRICITABINE 200 MG CAP PO SCH (09:58)
[2020-09-11] MEDS: DOLUTEGRAVIR 50 MG TAB PO SCH (09:59)
[2020-09-11] MEDS: TENOFOVIR 300 MG TAB PO SCH (10:00)
[2020-09-11] MEDS ORDERED: DOLUTEGRAVIR 50 MG, TENOFOVIR 300 MG, EMTRICITABINE 200 MG PO SCH (10:00)
[2020-09-11 14:29] LABS: Platelet Estimate Consistent w Auto; RBC Morphology Normal; Total Cells Counted 100
--- NOTE | 2020-09-11 17:57 | Progress Note ---
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 Monitor CK levels --Unsteady gait Current Visit: Yes Status: Acute Probably secondary to myopathy Neurological causes to be ruled out - HIV (human immunodeficiency virus infection) Current Visit: Yes Status: Chronic Continue Biktarvy --DVT prophylaxis Current Visit: Yes Status: Acute On heparin and GI prophylaxis Closely monitor the patient and adjust management as needed Plan of care reviewed with the patient and his nurse History Interval history: I have seen and examined the patient at the bedside this morning Patient was admitted with generalized weakness , unsteady gait palpitations and exophthalmos Patient was recently diagnosed with hyperthyroidism and is on methimazole, r eports that he missed his medications for 2 to 3 days Initial evaluation with CT head without contrast negative for acute abnormality Vital signs noted Hospitalist Physical - Constitutional Vitals: Temp Pulse Resp BP Pulse Ox 98.6 F 82 20 146/87 95 09/11/20 16:22 09/11/20 16:22 09/11/20 16:22 09/11/20 16:22 09/11/20 16:22 General appearance: Present: mild distress, well-nourished, other (Mild tremulousness, severe exophthalmos) - EENT Eyes: Present: PERRL, EOM intact - Neck Neck: Present: supple, normal ROM. Absent: enlarged thyroid - Respiratory Respiratory effort: normal Respiratory: bilateral: diminished, negative: rales, rhonchi, wheezing - Cardiovascular Rhythm: regular Heart Sounds: Present: S1 & S2 - Extremities Extremities: no ischemia, No edema - Abdominal General gastrointestinal: soft, non-tender, non-distended, normal bowel sounds - Integumentary Integumentary: Present: clear, warm - Psychiatric Psychiatric: appropriate mood/affect, cooperative - Neurologic Neurologic: CNII-XII intact, moves all extremities HEART Score - HEART Score Troponin: Troponin T < 0.010 ng/mL (0.00-0.029) 09/10/20 11:55 Results - Labs CBC & Chem 7: 09/11/20 04:54 09/11/20 04:54 Labs: Laboratory Last Values WBC 4.0 K/mm3 (4.5-11.0) L 09/11/20 04:54 RBC 5.21 M/mm3 (3.65-5.03) H 09/11/20 04:54 Hgb 14.0 gm/dl (11.8-15.2) 09/11/20 04:54 Hct 42.6 % (35.5-45.6) 09/11/20 04:54 MCV 82 fl (84-94) L 09/11/20 04:54 MCH 27 pg (28-32) L 09/11/20 04:54 MCHC 33 % (32-34) 09/11/20 04:54 RDW 13.7 % (13.2-15.2) 09/11/20 04:54 Plt Count 187 K/mm3 (140-440) 09/11/20 04:54 Lymph % (Auto) 40.9 % (13.4-35.0) H 09/10/20 11:55 [place] % (Auto) 13.1 % (0.0-7.3) H 09/10/20 11:55 Eos % (Auto) 5.0 % (0.0-4.3) H 09/10/20 11:55 Baso % (Auto) 0.6 % (0.0-1.8) 09/10/20 11:55 Lymph # (Auto) 1.5 K/mm3 (1.2-5.4) 09/10/20 11:55 [place] # (Auto) 0.5 K/mm3 (0.0-0.8) 09/10/20 11:55 Eos # (Auto) 0.2 K/mm3 (0.0-0.4) 09/10/20 11:55 Baso # (Auto) 0.0 K/mm3 (0.0-0.1) 09/10/20 11:55 Add Manual Diff Complete 09/11/20 04:54 Total Counted 100 09/11/20 04:54 Seg Neutrophils % Account Collector 09/11/20 04:54 Seg Neuts % (Manual) 48.0 % (40.0-70.0) 09/11/20 04:54 Band Neutrophils % 1.0 % 09/11/20 04:54 Lymphocytes % (Manual) 39.0 % (13.4-35.0) H 09/11/20 04:54 Monocytes % (Manual) 9.0 % (0.0-7.3) H 09/11/20 04:54 Eosinophils % (Manual) 3.0 % (0.0-4.3) 09/11/20 04:54 Nucleated RBC % Not Reportable 09/11/20 04:54 Seg Neutrophils # 1.5 K/mm3 (1.8-7.7) L 09/10/20 11:55 Seg Neutrophils # Man 1.9 K/mm3 (1.8-7.7) 09/11/20 04:54 Band Neutrophils # 0.0 K/mm3 09/11/20 04:54 Lymphocytes # (Manual) 1.6 K/mm3 (1.2-5.4) 09/11/20 04:54 Abs React Lymphs (Man) 0.0 K/mm3 09/11/20 04:54 Monocytes # (Manual) 0.4 K/mm3 (0.0-0.8) 09/11/20 04:54 Eosinophils # (Manual) 0.1 K/mm3 (0.0-0.4) 09/11/20 04:54 Basophils # (Manual) 0.0 K/mm3 (0.0-0.1) 09/11/20 04:54 Metamyelocytes # 0.0 K/mm3 09/11/20 04:54 Myelocytes # 0.0 K/mm3 09/11/20 04:54 Promyelocytes # 0.0 K/mm3 09/11/20 04:54 Blast Cells # 0.0 K/mm3 09/11/20 04:54 WBC Morphology Not Reportable 09/11/20 04:54 Hypersegmented Neuts Not Reportable 09/11/20 04:54 Hyposegmented Neuts Not Reportable 09/11/20 04:54 Hypogranular Neuts Not Reportable 09/11/20 04:54 Smudge Cells Not Reportable 09/11/20 04:54 Toxic Granulation Not Reportable 09/11/20 04:54 Toxic Vacuolation Not Reportable 09/11/20 04:54 Dohle Bodies Not Reportable 09/11/20 04:54 Pelger-Huet Anomaly Not Reportable 09/11/20 04:54 Reji Rods Not Reportable 09/11/20 04:54 Platelet Estimate Consistent w auto 09/11/20 04:54 Clumped Platelets Not Reportable 09/11/20 04:54 Plt Clumps, EDTA Not Reportable 09/11/20 04:54 Large Platelets Not Reportable 09/11/20 04:54 Giant Platelets Not Reportable 09/11/20 04:54 Platelet Satelliting Not Reportable 09/11/20 04:54 Plt Morphology Comment Not Reportable 09/11/20 04:54 RBC Morphology Normal 09/11/20 04:54 Dimorphic RBCs Not Reportable 09/11/20 04:54 Polychromasia Not Reportable 09/11/20 04:54 Hypochromasia Not Reportable 09/11/20 04:54 Poikilocytosis Not Reportable 09/11/20 04:54 Anisocytosis Not Reportable 09/11/20 04:54 Microcytosis Not Reportable 09/11/20 04:54 Macrocytosis Not Reportable 09/11/20 04:54 Spherocytes Not Reportable 09/11/20 04:54 Pappenheimer Bodies Not Reportable 09/11/20 04:54 Sickle Cells Not Reportable 09/11/20 04:54 Target Cells Not Reportable 09/11/20 04:54 Tear Drop Cells Not Reportable 09/11/20 04:54 Ovalocytes Not Reportable 09/11/20 04:54 Helmet Cells Not Reportable 09/11/20 04:54 [place] Bodies Not Reportable 09/11/20 04:54 [place] Rings Not Reportable 09/11/20 04:54 [place] Cells Not Reportable 09/11/20 04:54 Bite Cells Not Reportable 09/11/20 04:54 Crenated Cell Not Reportable 09/11/20 04:54 Elliptocytes Not Reportable 09/11/20 04:54 Acanthocytes (Spur) Not Reportable 09/11/20 04:54 Rouleaux Not Reportable 09/11/20 04:54 Hemoglobin C Crystals Not Reportable 09/11/20 04:54 Schistocytes Not Reportable 09/11/20 04:54 Malaria parasites Not Reportable 09/11/20 04:54 [place] Bodies Not Reportable 09/11/20 04:54 Hem Pathologist Commnt No 09/11/20 04:54 PT 15.1 Sec. (12.2-14.9) H 09/10/20 11:55 INR 1.13 (0.87-1.13) 09/10/20 11:55 APTT 28.6 Sec. (24.2-36.6) 09/10/20 11:55 Thrombin Time 16.1 Sec. (15.1-19.6) 09/10/20 11:55 Sodium 140 mmol/L (137-145) 09/11/20 04:54 Potassium 4.2 mmol/L (3.6-5.0) 09/11/20 04:54 Chloride 103.8 mmol/L (98-107) 09/11/20 04:54 Carbon Dioxide 28 mmol/L (22-30) 09/11/20 04:54 Anion Gap 12 mmol/L 09/11/20 04:54 BUN 11 mg/dL (9-20) 09/11/20 04:54 Creatinine 0.7 mg/dL (0.8-1.3) L 09/11/20 04:54 Estimated GFR > 60 ml/min 09/11/20 04:54 BUN/Creatinine Ratio 16 % 09/11/20 04:54 Glucose 97 mg/dL (75-100) 09/11/20 04:54 Hemoglobin A1c 5.6 % (4-6) 09/11/20 04:54 Calcium 8.3 mg/dL (8.4-10.2) L 09/11/20 04:54 Phosphorus 3.40 mg/dL (2.5-4.5) 09/10/20 08:02 Magnesium 1.90 mg/dL (1.7-2.3) 09/10/20 08:02 Total Bilirubin 1.30 mg/dL (0.1-1.2) H 09/11/20 04:54 AST 20 units/L (5-40) 09/11/20 04:54 ALT 18 units/L (7-56) 09/11/20 04:54 Alkaline Phosphatase 124 units/L (35-129) 09/11/20 04:54 Total Creatine Kinase 484 units/L (55-170) H 09/10/20 11:55 CK-MB (CK-2) 19.4 ng/mL (0.0-4.0) H 09/10/20 11:55 CK-MB (CK-2) Rel Index 4.0 (0-4) 09/10/20 11:55 Troponin T < 0.010 ng/mL (0.00-0.029) 09/10/20 11:55 Total Protein 5.6 g/dL (6.3-8.2) L D 09/11/20 04:54 Albumin 3.6 g/dL (3.9-5) L 09/11/20 04:54 Albumin/Globulin Ratio 1.8 % 09/11/20 04:54 TSH < 0.005 mlU/mL (0.270-4.200) L 09/10/20 08:02 Free T4 1.68 ng/dL (0.76-1.46) H 09/10/20 08:02 Urine Color Yellow (Yellow) 09/10/20 20:49 Urine Turbidity Clear (Clear) 09/10/20 20:49 Urine pH 5.0 (5.0-7.0) 09/10/20 20:49 Ur Specific [place] 1.021 (1.003-1.030) 09/10/20 20:49 Urine Protein 30 mg/dl mg/dL (Negative) 09/10/20 20:49 Urine Glucose (UA) Neg mg/dL (Negative) 09/10/20 20:49 Urine Ketones 20 mg/dL (Negative) 09/10/20 20:49 Urine Blood Neg (Negative) 09/10/20 20:49 Urine Nitrite Neg (Negative) 09/10/20 20:49 Urine Bilirubin Neg (Negative) 09/10/20 20:49 Urine Urobilinogen 4.0 mg/dL (<2.0) 09/10/20 20:49 Ur Leukocyte Esterase Neg (Negative) 09/10/20 20:49 Urine WBC (Auto) < 1.0 /HPF (0.0-6.0) 09/10/20 20:49 Urine RBC (Auto) 1.0 /HPF (0.0-6.0) 09/10/20 20:49 Urine Mucus Few /HPF 09/10/20 20:49 Urine Opiates Screen Negative 09/10/20 20:49 Urine Methadone Screen Negative 09/10/20 20:49 Ur Barbiturates Screen Negative 09/10/20 20:49 Ur Phencyclidine Scrn Negative 09/10/20 20:49 Ur Amphetamines Screen Negative 09/10/20 20:49 U Benzodiazepines Scrn Negative 09/10/20 20:49 Urine Cocaine Screen Negative 09/10/20 20:49 U Marijuana (THC) Screen Negative 09/10/20 20:49 Drugs of Abuse Note Disclamer 09/10/20 20:49 Plasma/Serum Alcohol < 0.01 % (0-0.07) 09/10/20 11:55 [place]/IV: Voiding Method Toilet Active Medications - Current Medications Current Medications: Generic Name Dose Route Start Last Admin Trade Name Freq PRN Reason Stop Dose Admin Acetaminophen 650 mg 09/10/20 22:11 Acetaminophen 325 Mg Tab PO Q4H PRN Pain MILD(1-3)/Fever >100.5/PADRON Emtricitabine 200 mg 09/11/20 10:00 09/11/20 09:58 Emtricitabine 200 Mg Cap PO 200 mg QDAY ETELVINA Administration Hydromorphone HCl 0.5 mg 09/10/20 22:11 Hydromorphone 1 Mg/1 Ml Inj IV Q3H PRN Pain , Severe (7-10) Ibuprofen 600 mg 09/10/20 21:52 09/10/20 22:25 Ibuprofen 600 Mg Tab PO 600 mg Q6H PRN Administration Pain, Mild (1-3) Methimazole 20 mg 09/10/20 22:27 09/11/20 14:53 Methimazole 5 Mg Tab PO 20 mg Q8HR ETELVINA Administration Metoclopramide HCl 10 mg 09/10/20 22:11 Metoclopramide 10 Mg/2 Ml Inj IV Q6H PRN Nausea And Vomiting Ondansetron HCl 4 mg 09/10/20 22:11 Ondansetron 4 Mg/2 Ml Inj IV Q8H PRN Nausea And Vomiting Oxycodone/Acetaminophen 1 tab 09/10/20 22:11 Oxycodone /Acetaminophen 5-325mg Tab PO Q6H PRN Pain, Moderate (4-6) Propranolol HCl 20 mg 09/10/20 23:00 09/11/20 09:58 Propranolol 10 Mg Tab PO 20 mg Q12HR ETELVINA Administration Propylthiouracil 100 mg 09/10/20 23:00 09/11/20 14:52 Propylthiouracil 50 Mg Tab PO 100 mg Q8HR ETELVINA Administration Sodium Chloride 10 ml 09/11/20 10:00 09/11/20 10:00 Sodium Chloride 0.9% 10 Ml Flush Syringe IV 10 ml BID ETELVINA Administration Sodium Chloride 10 ml 09/10/20 22:11 Sodium Chloride 0.9% 10 Ml Flush Syringe IV PRN PRN LINE FLUSH Tenofovir Disoproxil Fumarate 300 mg 09/11/20 10:00 09/11/20 10:00 Tenofovir 300 Mg Tab PO 300 mg QDAY ETELVINA Administration
[2020-09-12 06:21] LABS: BUN/Creatinine Ratio 13; Blood Urea Nitrogen 9 mg/dL (9-20); Calcium 8.7 mg/dL (8.4-10.2); Hemolysis Index 9
[2020-09-12 06:40] LABS: Free T4 (Free Thyroxine) 1.51 ng/dL (0.76-1.46)
[2020-09-12] MEDS: methIMAzole 5 MG TAB PO SCH ×3 (06:43→22:25)
[2020-09-12] MEDS: propylthiouraciL 50 MG TAB PO SCH (06:43)
[2020-09-12] MEDS: TENOFOVIR 300 MG TAB PO SCH (11:04)
[2020-09-12] MEDS: EMTRICITABINE 200 MG CAP PO SCH (11:04)
[2020-09-12] MEDS: PROPRANOLOL 10 MG TAB PO SCH ×2 (11:04→22:25)
[2020-09-12] MEDS: DOLUTEGRAVIR 50 MG TAB PO SCH (11:04)
--- NOTE | 2020-09-12 11:51 | Progress Note ---
Assessment and Plan 44-year-old male with history of hypertension hypothyroidism on methimazole 10 mg 3 times a day comes in for 2 days of bilateral lower extremity pain and weakness and heaviness. Also unsteady gait. He states that he feels off balance. Patient was diagnosed with hyperthyroidism 2 months ago and was started on methimazole 10 mg 3 times a day. Patient states that is compliant with methimazole. Patient is also concerned about his bulging eyes. No thyroid swelling. Patient has history of HIV. Pain below the knees and weakness below the knees and also both thighs. Is unsteady because of his weakness in both the feet Assessment and Plan Advance Directives: Yes (Full code) VTE prophylaxis?: Chemical Plan of care discussed with patient/family: Yes # Multiple complain including unsteady gait and numbness in feet associated with CP -Exam showed weakness in feet bilaterally -subjective sensory impairment in feet -Pt. 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 -IV fluids for now # Unsteady gait - PT therapy # HIV (human immunodeficiency virus infection) -Continue Biktarvy # DVT prophylaxis -On heparin and GI prophylaxis PLAN 1- Review labs 2- Pt therapy 3- Neurology follow up for neuropathy and feet drop 4- he might benefit from bilateral foot splint to help with walking will sign off Subjective Date of service: 09/12/20 Principal diagnosis: weakness Interval history: numbness according to pt. is some what better he is with walking difficulty related to bilateral feet numbess and foot drop bilaterally Objective - Vital Sign Vital Signs - 12hr 09/12/20 09/12/20 09/12/20 03:00 04:00 04:15 Temperature 98.2 F Pulse Rate 59 L 59 L Respiratory 18 18 Rate Blood Pressure 93/53 O2 Sat by Pulse 98 Oximetry - General Apperance Constitutional: comfortable - EENT EENT: PERRL, mucous membranes moist - Respiratory Respiratory: chest non-tender, lungs clear, rhonchi - Cardiovascular Cardiovascular: regular rate, normal S1, normal S2 Extremities: no peripheral edema bilat, no clubbing, cyanosis - Gastrointestinal Gastrointestinal: normoactive bowel sounds - Integumentary Integumentary: normal - Neurologic Cranial nerve examination: PERRL, EOMI, intact, other (with bilateral eyes buklging with intact EOM.) Detailed sensory examination: other (decrese sensation in feet with bilteral foot drop both dorsi and planter eversion ) Posture: decorticate (is unsteady related to fft drop , no weakness proximaly, reflexes are intact 2+) - Laboratory Findings CBC and BMP: 09/11/20 04:54 09/12/20 05:39 Abnormal Lab Findings: Abnormal Labs 09/10/20 09/10/20 09/10/20 08:02 08:02 08:02 WBC RBC 5.43 H MCV 81 L MCH MCHC 35 H Lymph % (Auto) [place] % (Auto) Eos % (Auto) Lymphocytes % (Manual) Monocytes % (Manual) Seg Neutrophils # PT Creatinine 0.7 L Calcium Total Bilirubin 2.20 H Alkaline Phosphatase 138 H Total Creatine Kinase CK-MB (CK-2) Total Protein Albumin TSH Free T4 1.68 H 09/10/20 09/10/20 09/10/20 08:02 11:55 11:55 WBC 3.8 L RBC 5.54 H MCV 82 L MCH 27 L MCHC Lymph % (Auto) 40.9 H [place] % (Auto) 13.1 H Eos % (Auto) 5.0 H Lymphocytes % (Manual) Monocytes % (Manual) Seg Neutrophils # 1.5 L PT 15.1 H Creatinine Calcium Total Bilirubin Alkaline Phosphatase Total Creatine Kinase CK-MB (CK-2) Total Protein Albumin TSH < 0.005 L Free T4 09/10/20 09/11/20 09/11/20 11:55 04:54 04:54 WBC 4.0 L RBC 5.21 H MCV 82 L MCH 27 L MCHC Lymph % (Auto) [place] % (Auto) Eos % (Auto) Lymphocytes % (Manual) 39.0 H Monocytes % (Manual) 9.0 H Seg Neutrophils # PT Creatinine 0.7 L Calcium 8.3 L Total Bilirubin 1.30 H Alkaline Phosphatase Total Creatine Kinase 484 H CK-MB (CK-2) 19.4 H Total Protein 5.6 L D Albumin 3.6 L TSH Free T4 09/12/20 09/12/20 05:39 05:39 WBC RBC MCV MCH MCHC Lymph % (Auto) [place] % (Auto) Eos % (Auto) Lymphocytes % (Manual) Monocytes % (Manual) Seg Neutrophils # PT Creatinine 0.7 L Calcium Total Bilirubin Alkaline Phosphatase Total Creatine Kinase CK-MB (CK-2) Total Protein Albumin TSH < 0.005 L Free T4 1.51 H
--- NOTE | 2020-09-12 16:20 | Progress Note ---
Assessment and Plan Assessment and plan: -- Thyrotoxicosis Current Visit: Yes Status: Acute Severe exophthalmos , eye care , eye lubrication Continue methimazole was increased from 10 mg to 20 mg 3 times a day Follow-up CBC and LFTs Max dose that can be used is a 60 mg/day Patient has I T4 and low TSH Patient needs radioactive iodine uptake as outpatient/follow-up with endocrinology for ablation of thyroid activity Will hold PTU, check TFTs, and adjust the medications Propranolol 20 mg twice a day added. 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 Monitor CK levels --Unsteady gait Current Visit: Yes Status: Acute Probably secondary to myopathy Neurological causes to be ruled out - HIV (human immunodeficiency virus infection) Current Visit: Yes Status: Chronic Continue Biktarvy --DVT prophylaxis Current Visit: Yes Status: Acute On heparin and GI prophylaxis Closely monitor the patient and adjust management as needed Plan of care reviewed with the patient and his nurse 09/12/2020; patient has severe hypothyroidism With exophthalmos, tremulousness, and myalgias Patient also has mild foot drop Significantly improved today, though TSH and free T4 are still abnormal History Interval history: I have seen and examined the patient at the bedside, patient's chart and medications reviewed patient continues to have myopathy and weakness Neurology following Patient feels slightly better today Exophthalmos mild improvement No tremulousness, no tachycardia Vital signs noted Hospitalist Physical - Constitutional Vitals: Temp Pulse Resp BP Pulse Ox 98.2 F 59 L 18 93/53 98 09/12/20 04:15 09/12/20 04:15 09/12/20 04:15 09/12/20 04:15 09/12/20 04:15 General appearance: Present: mild distress, well-nourished, other (Mild tremulousness, severe exophthalmos) - EENT Eyes: Present: PERRL, EOM intact - Neck Neck: Present: supple, normal ROM - Respiratory Respiratory effort: normal Respiratory: bilateral: diminished, negative: rales, rhonchi, wheezing - Cardiovascular Rhythm: regular Heart Sounds: Present: S1 & S2 - Extremities Extremities: no ischemia, No edema, abnormal (Generalized weakness. Foot drop,) - Abdominal General gastrointestinal: soft, non-tender, non-distended, normal bowel sounds - Integumentary Integumentary: Present: clear, warm - Psychiatric Psychiatric: appropriate mood/affect, cooperative - Neurologic Neurologic: moves all extremities HEART Score - HEART Score Troponin: Troponin T < 0.010 ng/mL (0.00-0.029) 09/10/20 11:55 Results - Labs CBC & Chem 7: 09/11/20 04:54 09/12/20 05:39 Labs: Laboratory Last Values WBC 4.0 K/mm3 (4.5-11.0) L 09/11/20 04:54 RBC 5.21 M/mm3 (3.65-5.03) H 09/11/20 04:54 Hgb 14.0 gm/dl (11.8-15.2) 09/11/20 04:54 Hct 42.6 % (35.5-45.6) 09/11/20 04:54 MCV 82 fl (84-94) L 09/11/20 04:54 MCH 27 pg (28-32) L 09/11/20 04:54 MCHC 33 % (32-34) 09/11/20 04:54 RDW 13.7 % (13.2-15.2) 09/11/20 04:54 Plt Count 187 K/mm3 (140-440) 09/11/20 04:54 Lymph % (Auto) 40.9 % (13.4-35.0) H 09/10/20 11:55 [place] % (Auto) 13.1 % (0.0-7.3) H 09/10/20 11:55 Eos % (Auto) 5.0 % (0.0-4.3) H 09/10/20 11:55 Baso % (Auto) 0.6 % (0.0-1.8) 09/10/20 11:55 Lymph # (Auto) 1.5 K/mm3 (1.2-5.4) 09/10/20 11:55 [place] # (Auto) 0.5 K/mm3 (0.0-0.8) 09/10/20 11:55 Eos # (Auto) 0.2 K/mm3 (0.0-0.4) 09/10/20 11:55 Baso # (Auto) 0.0 K/mm3 (0.0-0.1) 09/10/20 11:55 Add Manual Diff Complete 09/11/20 04:54 Total Counted 100 09/11/20 04:54 Seg Neutrophils % Retail Inventory Control Clerk 09/11/20 04:54 Seg Neuts % (Manual) 48.0 % (40.0-70.0) 09/11/20 04:54 Band Neutrophils % 1.0 % 09/11/20 04:54 Lymphocytes % (Manual) 39.0 % (13.4-35.0) H 09/11/20 04:54 Monocytes % (Manual) 9.0 % (0.0-7.3) H 09/11/20 04:54 Eosinophils % (Manual) 3.0 % (0.0-4.3) 09/11/20 04:54 Nucleated RBC % Not Reportable 09/11/20 04:54 Seg Neutrophils # 1.5 K/mm3 (1.8-7.7) L 09/10/20 11:55 Seg Neutrophils # Man 1.9 K/mm3 (1.8-7.7) 09/11/20 04:54 Band Neutrophils # 0.0 K/mm3 09/11/20 04:54 Lymphocytes # (Manual) 1.6 K/mm3 (1.2-5.4) 09/11/20 04:54 Abs React Lymphs (Man) 0.0 K/mm3 09/11/20 04:54 Monocytes # (Manual) 0.4 K/mm3 (0.0-0.8) 09/11/20 04:54 Eosinophils # (Manual) 0.1 K/mm3 (0.0-0.4) 09/11/20 04:54 Basophils # (Manual) 0.0 K/mm3 (0.0-0.1) 09/11/20 04:54 Metamyelocytes # 0.0 K/mm3 09/11/20 04:54 Myelocytes # 0.0 K/mm3 09/11/20 04:54 Promyelocytes # 0.0 K/mm3 09/11/20 04:54 Blast Cells # 0.0 K/mm3 09/11/20 04:54 WBC Morphology Not Reportable 09/11/20 04:54 Hypersegmented Neuts Not Reportable 09/11/20 04:54 Hyposegmented Neuts Not Reportable 09/11/20 04:54 Hypogranular Neuts Not Reportable 09/11/20 04:54 Smudge Cells Not Reportable 09/11/20 04:54 Toxic Granulation Not Reportable 09/11/20 04:54 Toxic Vacuolation Not Reportable 09/11/20 04:54 Dohle Bodies Not Reportable 09/11/20 04:54 Pelger-Huet Anomaly Not Reportable 09/11/20 04:54 Reji Rods Not Reportable 09/11/20 04:54 Platelet Estimate Consistent w auto 09/11/20 04:54 Clumped Platelets Not Reportable 09/11/20 04:54 Plt Clumps, EDTA Not Reportable 09/11/20 04:54 Large Platelets Not Reportable 09/11/20 04:54 Giant Platelets Not Reportable 09/11/20 04:54 Platelet Satelliting Not Reportable 09/11/20 04:54 Plt Morphology Comment Not Reportable 09/11/20 04:54 RBC Morphology Normal 09/11/20 04:54 Dimorphic RBCs Not Reportable 09/11/20 04:54 Polychromasia Not Reportable 09/11/20 04:54 Hypochromasia Not Reportable 09/11/20 04:54 Poikilocytosis Not Reportable 09/11/20 04:54 Anisocytosis Not Reportable 09/11/20 04:54 Microcytosis Not Reportable 09/11/20 04:54 Macrocytosis Not Reportable 09/11/20 04:54 Spherocytes Not Reportable 09/11/20 04:54 Pappenheimer Bodies Not Reportable 09/11/20 04:54 Sickle Cells Not Reportable 09/11/20 04:54 Target Cells Not Reportable 09/11/20 04:54 Tear Drop Cells Not Reportable 09/11/20 04:54 Ovalocytes Not Reportable 09/11/20 04:54 Helmet Cells Not Reportable 09/11/20 04:54 [place] Bodies Not Reportable 09/11/20 04:54 [place] Rings Not Reportable 09/11/20 04:54 [place] Cells Not Reportable 09/11/20 04:54 Bite Cells Not Reportable 09/11/20 04:54 Crenated Cell Not Reportable 09/11/20 04:54 Elliptocytes Not Reportable 09/11/20 04:54 Acanthocytes (Spur) Not Reportable 09/11/20 04:54 Rouleaux Not Reportable 09/11/20 04:54 Hemoglobin C Crystals Not Reportable 09/11/20 04:54 Schistocytes Not Reportable 09/11/20 04:54 Malaria parasites Not Reportable 09/11/20 04:54 [place] Bodies Not Reportable 09/11/20 04:54 Hem Pathologist Commnt No 09/11/20 04:54 PT 15.1 Sec. (12.2-14.9) H 09/10/20 11:55 INR 1.13 (0.87-1.13) 09/10/20 11:55 APTT 28.6 Sec. (24.2-36.6) 09/10/20 11:55 Thrombin Time 16.1 Sec. (15.1-19.6) 09/10/20 11:55 Sodium 138 mmol/L (137-145) 09/12/20 05:39 Potassium 4.5 mmol/L (3.6-5.0) 09/12/20 05:39 Chloride 103.5 mmol/L (98-107) 09/12/20 05:39 Carbon Dioxide 29 mmol/L (22-30) 09/12/20 05:39 Anion Gap 10 mmol/L 09/12/20 05:39 BUN 9 mg/dL (9-20) 09/12/20 05:39 Creatinine 0.7 mg/dL (0.8-1.3) L 09/12/20 05:39 Estimated GFR > 60 ml/min 09/12/20 05:39 BUN/Creatinine Ratio 13 % 09/12/20 05:39 Glucose 97 mg/dL (75-100) 09/12/20 05:39 Hemoglobin A1c 5.6 % (4-6) 09/11/20 04:54 Calcium 8.7 mg/dL (8.4-10.2) 09/12/20 05:39 Phosphorus 3.40 mg/dL (2.5-4.5) 09/10/20 08:02 Magnesium 1.90 mg/dL (1.7-2.3) 09/10/20 08:02 Total Bilirubin 1.30 mg/dL (0.1-1.2) H 09/11/20 04:54 AST 20 units/L (5-40) 09/11/20 04:54 ALT 18 units/L (7-56) 09/11/20 04:54 Alkaline Phosphatase 124 units/L (35-129) 09/11/20 04:54 Total Creatine Kinase 151 units/L (55-170) 09/12/20 15:24 CK-MB (CK-2) 19.4 ng/mL (0.0-4.0) H 09/10/20 11:55 CK-MB (CK-2) Rel Index 4.0 (0-4) 09/10/20 11:55 Troponin T < 0.010 ng/mL (0.00-0.029) 09/10/20 11:55 Total Protein 5.6 g/dL (6.3-8.2) L D 09/11/20 04:54 Albumin 3.6 g/dL (3.9-5) L 09/11/20 04:54 Albumin/Globulin Ratio 1.8 % 09/11/20 04:54 TSH < 0.005 mlU/mL (0.270-4.200) L 09/12/20 05:39 Free T4 1.51 ng/dL (0.76-1.46) H 09/12/20 05:39 Urine Color Yellow (Yellow) 09/10/20 20:49 Urine Turbidity Clear (Clear) 09/10/20 20:49 Urine pH 5.0 (5.0-7.0) 09/10/20 20:49 Ur Specific [place] 1.021 (1.003-1.030) 09/10/20 20:49 Urine Protein 30 mg/dl mg/dL (Negative) 09/10/20 20:49 Urine Glucose (UA) Neg mg/dL (Negative) 09/10/20 20:49 Urine Ketones 20 mg/dL (Negative) 09/10/20 20:49 Urine Blood Neg (Negative) 09/10/20 20:49 Urine Nitrite Neg (Negative) 09/10/20 20:49 Urine Bilirubin Neg (Negative) 09/10/20 20:49 Urine Urobilinogen 4.0 mg/dL (<2.0) 09/10/20 20:49 Ur Leukocyte Esterase Neg (Negative) 09/10/20 20:49 Urine WBC (Auto) < 1.0 /HPF (0.0-6.0) 09/10/20 20:49 Urine RBC (Auto) 1.0 /HPF (0.0-6.0) 09/10/20 20:49 Urine Mucus Few /HPF 09/10/20 20:49 Urine Opiates Screen Negative 09/10/20 20:49 Urine Methadone Screen Negative 09/10/20 20:49 Ur Barbiturates Screen Negative 09/10/20 20:49 Ur Phencyclidine Scrn Negative 09/10/20 20:49 Ur Amphetamines Screen Negative 09/10/20 20:49 U Benzodiazepines Scrn Negative 09/10/20 20:49 Urine Cocaine Screen Negative 09/10/20 20:49 U Marijuana (THC) Screen Negative 09/10/20 20:49 Drugs of Abuse Note Disclamer 09/10/20 20:49 Plasma/Serum Alcohol < 0.01 % (0-0.07) 09/10/20 11:55 Rabago/IV: Voiding Method Urinal Active Medications - Current Medications Current Medications: Generic Name Dose Route Start Last Admin Trade Name Freq PRN Reason Stop Dose Admin Acetaminophen 650 mg 09/10/20 22:11 Acetaminophen 325 Mg Tab PO Q4H PRN Pain MILD(1-3)/Fever >100.5/PADRON Emtricitabine 200 mg 09/11/20 10:00 09/12/20 11:04 Emtricitabine 200 Mg Cap PO 200 mg QDAY ETELVINA Administration Hydromorphone HCl 0.5 mg 09/10/20 22:11 Hydromorphone 1 Mg/1 Ml Inj IV Q3H PRN Pain , Severe (7-10) Ibuprofen 600 mg 09/10/20 21:52 09/10/20 22:25 Ibuprofen 600 Mg Tab PO 600 mg Q6H PRN Administration Pain, Mild (1-3) Methimazole 20 mg 09/10/20 22:27 09/12/20 06:43 Methimazole 5 Mg Tab PO 20 mg Q8HR ETELVINA Administration Metoclopramide HCl 10 mg 09/10/20 22:11 Metoclopramide 10 Mg/2 Ml Inj IV Q6H PRN Nausea And Vomiting Ondansetron HCl 4 mg 09/10/20 22:11 Ondansetron 4 Mg/2 Ml Inj IV Q8H PRN Nausea And Vomiting Oxycodone/Acetaminophen 1 tab 09/10/20 22:11 Oxycodone /Acetaminophen 5-325mg Tab PO Q6H PRN Pain, Moderate (4-6) Propranolol HCl 20 mg 09/10/20 23:00 09/12/20 11:04 Propranolol 10 Mg Tab PO 20 mg Q12HR ETELVINA Administration Sodium Chloride 10 ml 09/11/20 10:00 09/11/20 23:05 Sodium Chloride 0.9% 10 Ml Flush Syringe IV 10 ml BID ETELVINA Administration Sodium Chloride 10 ml 09/10/20 22:11 Sodium Chloride 0.9% 10 Ml Flush Syringe IV PRN PRN LINE FLUSH Tenofovir Disoproxil Fumarate 300 mg 09/11/20 10:00 09/12/20 11:04 Tenofovir 300 Mg Tab PO 300 mg QDAY ETELVINA Administration
--- NOTE | 2020-09-12 18:46 | Progress Note ---
Assessment and Plan Assessment and plan: -- Thyrotoxicosis Current Visit: Yes Status: Acute Severe exophthalmos , eye care , eye lubrication Continue methimazole was increased from 10 mg to 20 mg 3 times a day Follow-up CBC and LFTs Max dose that can be used is a 60 mg/day Patient has I T4 and low TSH No endocrine service available, rest of the work-up upon discharge with his ancillary services manager therapy Will hold PTU, check TFTs, and adjust the medications Propranolol 20 mg twice a day added. 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 Monitor CK levels --Unsteady gait Current Visit: Yes Status: Acute Probably secondary to myopathy Neurological causes to be ruled out - HIV (human immunodeficiency virus infection) Current Visit: Yes Status: Chronic Continue Biktarvy --DVT prophylaxis Current Visit: Yes Status: Acute On heparin and GI prophylaxis Closely monitor the patient and adjust management as needed Plan of care reviewed with the patient and his nurse 09/12/2020; patient has severe hypothyroidism With exophthalmos, tremulousness, and myalgias Patient also has mild foot drop Significantly improved today, though TSH and free T4 are still abnormal History Interval history: I have seen and examined the patient in his room this morning Patient has no new complaints, feels a whole lot better Esophageal mass slightly improved, generalized weakness got better slightly Patient is on high dose methimazole Vital signs noted Hospitalist Physical - Constitutional Vitals: Temp Pulse Resp BP Pulse Ox 97.7 F 74 19 132/72 99 09/12/20 16:13 09/12/20 16:13 09/12/20 16:13 09/12/20 16:13 09/12/20 16:13 General appearance: Present: mild distress, well-nourished, other (Mild tremulousness, severe exophthalmos) - EENT Eyes: Present: PERRL, EOM intact, exopthalmos (Slightly improved) - Neck Neck: Present: supple, normal ROM - Respiratory Respiratory effort: normal Respiratory: bilateral: diminished, negative: rales, rhonchi, wheezing - Cardiovascular Rhythm: regular Heart Sounds: Present: S1 & S2 - Extremities Extremities: no ischemia, No edema - Abdominal General gastrointestinal: soft, non-tender, non-distended, normal bowel sounds - Integumentary Integumentary: Present: clear - Psychiatric Psychiatric: appropriate mood/affect, cooperative - Neurologic Neurologic: CNII-XII intact, moves all extremities HEART Score - HEART Score Troponin: Troponin T < 0.010 ng/mL (0.00-0.029) 09/10/20 11:55 Results - Labs CBC & Chem 7: 09/13/20 09:45 09/12/20 05:39 Labs: Laboratory Last Values WBC 4.0 K/mm3 (4.5-11.0) L 09/11/20 04:54 RBC 5.21 M/mm3 (3.65-5.03) H 09/11/20 04:54 Hgb 14.0 gm/dl (11.8-15.2) 09/11/20 04:54 Hct 42.6 % (35.5-45.6) 09/11/20 04:54 MCV 82 fl (84-94) L 09/11/20 04:54 MCH 27 pg (28-32) L 09/11/20 04:54 MCHC 33 % (32-34) 09/11/20 04:54 RDW 13.7 % (13.2-15.2) 09/11/20 04:54 Plt Count 187 K/mm3 (140-440) 09/11/20 04:54 Lymph % (Auto) 40.9 % (13.4-35.0) H 09/10/20 11:55 [place] % (Auto) 13.1 % (0.0-7.3) H 09/10/20 11:55 Eos % (Auto) 5.0 % (0.0-4.3) H 09/10/20 11:55 Baso % (Auto) 0.6 % (0.0-1.8) 09/10/20 11:55 Lymph # (Auto) 1.5 K/mm3 (1.2-5.4) 09/10/20 11:55 [place] # (Auto) 0.5 K/mm3 (0.0-0.8) 09/10/20 11:55 Eos # (Auto) 0.2 K/mm3 (0.0-0.4) 09/10/20 11:55 Baso # (Auto) 0.0 K/mm3 (0.0-0.1) 09/10/20 11:55 Add Manual Diff Complete 09/11/20 04:54 Total Counted 100 09/11/20 04:54 Seg Neutrophils % Gasateria Attendant 09/11/20 04:54 Seg Neuts % (Manual) 48.0 % (40.0-70.0) 09/11/20 04:54 Band Neutrophils % 1.0 % 09/11/20 04:54 Lymphocytes % (Manual) 39.0 % (13.4-35.0) H 09/11/20 04:54 Monocytes % (Manual) 9.0 % (0.0-7.3) H 09/11/20 04:54 Eosinophils % (Manual) 3.0 % (0.0-4.3) 09/11/20 04:54 Nucleated RBC % Not Reportable 09/11/20 04:54 Seg Neutrophils # 1.5 K/mm3 (1.8-7.7) L 09/10/20 11:55 Seg Neutrophils # Man 1.9 K/mm3 (1.8-7.7) 09/11/20 04:54 Band Neutrophils # 0.0 K/mm3 09/11/20 04:54 Lymphocytes # (Manual) 1.6 K/mm3 (1.2-5.4) 09/11/20 04:54 Abs React Lymphs (Man) 0.0 K/mm3 09/11/20 04:54 Monocytes # (Manual) 0.4 K/mm3 (0.0-0.8) 09/11/20 04:54 Eosinophils # (Manual) 0.1 K/mm3 (0.0-0.4) 09/11/20 04:54 Basophils # (Manual) 0.0 K/mm3 (0.0-0.1) 09/11/20 04:54 Metamyelocytes # 0.0 K/mm3 09/11/20 04:54 Myelocytes # 0.0 K/mm3 09/11/20 04:54 Promyelocytes # 0.0 K/mm3 09/11/20 04:54 Blast Cells # 0.0 K/mm3 09/11/20 04:54 WBC Morphology Not Reportable 09/11/20 04:54 Hypersegmented Neuts Not Reportable 09/11/20 04:54 Hyposegmented Neuts Not Reportable 09/11/20 04:54 Hypogranular Neuts Not Reportable 09/11/20 04:54 Smudge Cells Not Reportable 09/11/20 04:54 Toxic Granulation Not Reportable 09/11/20 04:54 Toxic Vacuolation Not Reportable 09/11/20 04:54 Dohle Bodies Not Reportable 09/11/20 04:54 Pelger-Huet Anomaly Not Reportable 09/11/20 04:54 Reji Rods Not Reportable 09/11/20 04:54 Platelet Estimate Consistent w auto 09/11/20 04:54 Clumped Platelets Not Reportable 09/11/20 04:54 Plt Clumps, EDTA Not Reportable 09/11/20 04:54 Large Platelets Not Reportable 09/11/20 04:54 Giant Platelets Not Reportable 09/11/20 04:54 Platelet Satelliting Not Reportable 09/11/20 04:54 Plt Morphology Comment Not Reportable 09/11/20 04:54 RBC Morphology Normal 09/11/20 04:54 Dimorphic RBCs Not Reportable 09/11/20 04:54 Polychromasia Not Reportable 09/11/20 04:54 Hypochromasia Not Reportable 09/11/20 04:54 Poikilocytosis Not Reportable 09/11/20 04:54 Anisocytosis Not Reportable 09/11/20 04:54 Microcytosis Not Reportable 09/11/20 04:54 Macrocytosis Not Reportable 09/11/20 04:54 Spherocytes Not Reportable 09/11/20 04:54 Pappenheimer Bodies Not Reportable 09/11/20 04:54 Sickle Cells Not Reportable 09/11/20 04:54 Target Cells Not Reportable 09/11/20 04:54 Tear Drop Cells Not Reportable 09/11/20 04:54 Ovalocytes Not Reportable 09/11/20 04:54 Helmet Cells Not Reportable 09/11/20 04:54 Lee-[place] Bodies Not Reportable 09/11/20 04:54 [place] Rings Not Reportable 09/11/20 04:54 [place] Cells Not Reportable 09/11/20 04:54 Bite Cells Not Reportable 09/11/20 04:54 Crenated Cell Not Reportable 09/11/20 04:54 Elliptocytes Not Reportable 09/11/20 04:54 Acanthocytes (Spur) Not Reportable 09/11/20 04:54 Rouleaux Not Reportable 09/11/20 04:54 Hemoglobin C Crystals Not Reportable 09/11/20 04:54 Schistocytes Not Reportable 09/11/20 04:54 Malaria parasites Not Reportable 09/11/20 04:54 ESR 1 mm/Hr (0-20) 09/12/20 15:24 [place] Bodies Not Reportable 09/11/20 04:54 Hem Pathologist Commnt No 09/11/20 04:54 PT 15.1 Sec. (12.2-14.9) H 09/10/20 11:55 INR 1.13 (0.87-1.13) 09/10/20 11:55 APTT 28.6 Sec. (24.2-36.6) 09/10/20 11:55 Thrombin Time 16.1 Sec. (15.1-19.6) 09/10/20 11:55 Sodium 138 mmol/L (137-145) 09/12/20 05:39 Potassium 4.5 mmol/L (3.6-5.0) 09/12/20 05:39 Chloride 103.5 mmol/L (98-107) 09/12/20 05:39 Carbon Dioxide 29 mmol/L (22-30) 09/12/20 05:39 Anion Gap 10 mmol/L 09/12/20 05:39 BUN 9 mg/dL (9-20) 09/12/20 05:39 Creatinine 0.7 mg/dL (0.8-1.3) L 09/12/20 05:39 Estimated GFR > 60 ml/min 09/12/20 05:39 BUN/Creatinine Ratio 13 % 09/12/20 05:39 Glucose 97 mg/dL (75-100) 09/12/20 05:39 Hemoglobin A1c 5.6 % (4-6) 09/11/20 04:54 Calcium 8.7 mg/dL (8.4-10.2) 09/12/20 05:39 Phosphorus 3.40 mg/dL (2.5-4.5) 09/10/20 08:02 Magnesium 1.90 mg/dL (1.7-2.3) 09/10/20 08:02 Total Bilirubin 1.30 mg/dL (0.1-1.2) H 09/11/20 04:54 AST 20 units/L (5-40) 09/11/20 04:54 ALT 18 units/L (7-56) 09/11/20 04:54 Alkaline Phosphatase 124 units/L (35-129) 09/11/20 04:54 Total Creatine Kinase 151 units/L (55-170) 09/12/20 15:24 CK-MB (CK-2) 19.4 ng/mL (0.0-4.0) H 09/10/20 11:55 CK-MB (CK-2) Rel Index 4.0 (0-4) 09/10/20 11:55 Troponin T < 0.010 ng/mL (0.00-0.029) 09/10/20 11:55 Total Protein 5.6 g/dL (6.3-8.2) L D 09/11/20 04:54 Albumin 3.6 g/dL (3.9-5) L 09/11/20 04:54 Albumin/Globulin Ratio 1.8 % 09/11/20 04:54 TSH < 0.005 mlU/mL (0.270-4.200) L 09/12/20 05:39 Free T4 1.51 ng/dL (0.76-1.46) H 09/12/20 05:39 Urine Color Yellow (Yellow) 09/10/20 20:49 Urine Turbidity Clear (Clear) 09/10/20 20:49 Urine pH 5.0 (5.0-7.0) 09/10/20 20:49 Ur Specific [place] 1.021 (1.003-1.030) 09/10/20 20:49 Urine Protein 30 mg/dl mg/dL (Negative) 09/10/20 20:49 Urine Glucose (UA) Neg mg/dL (Negative) 09/10/20 20:49 Urine Ketones 20 mg/dL (Negative) 09/10/20 20:49 Urine Blood Neg (Negative) 09/10/20 20:49 Urine Nitrite Neg (Negative) 09/10/20 20:49 Urine Bilirubin Neg (Negative) 09/10/20 20:49 Urine Urobilinogen 4.0 mg/dL (<2.0) 09/10/20 20:49 Ur Leukocyte Esterase Neg (Negative) 09/10/20 20:49 Urine WBC (Auto) < 1.0 /HPF (0.0-6.0) 09/10/20 20:49 Urine RBC (Auto) 1.0 /HPF (0.0-6.0) 09/10/20 20:49 Urine Mucus Few /HPF 09/10/20 20:49 Urine Opiates Screen Negative 09/10/20 20:49 Urine Methadone Screen Negative 09/10/20 20:49 Ur Barbiturates Screen Negative 09/10/20 20:49 Ur Phencyclidine Scrn Negative 09/10/20 20:49 Ur Amphetamines Screen Negative 09/10/20 20:49 U Benzodiazepines Scrn Negative 09/10/20 20:49 Urine Cocaine Screen Negative 09/10/20 20:49 U Marijuana (THC) Screen Negative 09/10/20 20:49 Drugs of Abuse Note Disclamer 09/10/20 20:49 Plasma/Serum Alcohol < 0.01 % (0-0.07) 09/10/20 11:55 Rabago/IV: Voiding Method Urinal Active Medications - Current Medications Current Medications: Generic Name Dose Route Start Last Admin Trade Name Freq PRN Reason Stop Dose Admin Acetaminophen 650 mg 09/10/20 22:11 Acetaminophen 325 Mg Tab PO Q4H PRN Pain MILD(1-3)/Fever >100.5/PADRON Emtricitabine 200 mg 09/11/20 10:00 09/12/20 11:04 Emtricitabine 200 Mg Cap PO 200 mg QDAY ETELVINA Administration Hydromorphone HCl 0.5 mg 09/10/20 22:11 Hydromorphone 1 Mg/1 Ml Inj IV Q3H PRN Pain , Severe (7-10) Ibuprofen 600 mg 09/10/20 21:52 09/10/20 22:25 Ibuprofen 600 Mg Tab PO 600 mg Q6H PRN Administration Pain, Mild (1-3) Methimazole 20 mg 09/10/20 22:27 09/12/20 06:43 Methimazole 5 Mg Tab PO 20 mg Q8HR ETELVINA Administration Metoclopramide HCl 10 mg 09/10/20 22:11 Metoclopramide 10 Mg/2 Ml Inj IV Q6H PRN Nausea And Vomiting Ondansetron HCl 4 mg 09/10/20 22:11 Ondansetron 4 Mg/2 Ml Inj IV Q8H PRN Nausea And Vomiting Oxycodone/Acetaminophen 1 tab 09/10/20 22:11 Oxycodone /Acetaminophen 5-325mg Tab PO Q6H PRN Pain, Moderate (4-6) Propranolol HCl 20 mg 09/10/20 23:00 09/12/20 11:04 Propranolol 10 Mg Tab PO 20 mg Q12HR ETELVINA Administration Sodium Chloride 10 ml 09/11/20 10:00 09/11/20 23:05 Sodium Chloride 0.9% 10 Ml Flush Syringe IV 10 ml BID ETELVINA Administration Sodium Chloride 10 ml 09/10/20 22:11 Sodium Chloride 0.9% 10 Ml Flush Syringe IV PRN PRN LINE FLUSH Tenofovir Disoproxil Fumarate 300 mg 09/11/20 10:00 09/12/20 11:04 Tenofovir 300 Mg Tab PO 300 mg QDAY ETELVINA Administration
--- NOTE | 2020-09-12 19:22 | Electrocardiograph Report ---
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 No previous ECG available for comparison Electronically Signed On 09-12-2020 19:22:01 EDT by Rico Swann
[2020-09-13] MEDS: methIMAzole 5 MG TAB PO SCH ×3 (05:49→22:43)
[2020-09-13] MEDS: oxyCODONE /ACETAMINOPHEN 5-325MG TAB PO PRN (08:39)
[2020-09-13 10:28] LABS: Basophils % (Auto) 0.5 % (0.0-1.8); Eosinophils # (Auto) 0.2 K/mm3 (0.0-0.4); Hematocrit 45.4 % (35.5-45.6); Hemoglobin 14.9 gm/dl (11.8-15.2); Lymphocytes # (Auto) 1.7 K/mm3 (1.2-5.4); Lymphocytes % (Auto) 42.8 % (13.4-35.0); Mean Corpuscular HGB Conc 33 % (32-34); Mean Corpuscular Volume 82 fl (84-94); Monocytes # (Auto) 0.5 K/mm3 (0.0-0.8); Platelet Count 219 K/mm3 (140-440); Red Blood Count 5.56 M/mm3 (3.65-5.03); Red Cell Distribution Width 13.9 % (13.2-15.2)
[2020-09-13 10:42] LABS: Alanine Aminotransferase 17 units/L (7-56); Albumin 3.8 g/dL (3.9-5)
[2020-09-13 10:46] LABS: Bilirubin,Direct < 0.2 mg/dL (0-0.2)
[2020-09-13] MEDS: TENOFOVIR 300 MG TAB PO SCH (10:59)
[2020-09-13] MEDS: EMTRICITABINE 200 MG CAP PO SCH (10:59)
[2020-09-13] MEDS: PROPRANOLOL 10 MG TAB PO SCH ×2 (10:59→22:43)
[2020-09-13] MEDS: DOLUTEGRAVIR 50 MG TAB PO SCH (10:59)
[2020-09-13 12:05] LABS: Free T4 (Free Thyroxine) 1.53 ng/dL (0.76-1.46)
[2020-09-14] MEDS: methIMAzole 5 MG TAB PO SCH ×3 (06:34→22:02)
[2020-09-14 07:02] LABS: Free T4 (Free Thyroxine) 1.31 ng/dL (0.76-1.46)
[2020-09-14] MEDS: oxyCODONE /ACETAMINOPHEN 5-325MG TAB PO PRN ×2 (11:02→22:16)
[2020-09-14] MEDS: PROPRANOLOL 10 MG TAB PO SCH ×2 (11:02→22:02)
[2020-09-14] MEDS: EMTRICITABINE 200 MG CAP PO SCH (11:02)
[2020-09-14] MEDS: TENOFOVIR 300 MG TAB PO SCH (11:02)
[2020-09-14] MEDS: DOLUTEGRAVIR 50 MG TAB PO SCH (11:03)
--- NOTE | 2020-09-14 20:30 | Progress Note ---
Assessment and Plan Assessment and plan: --Exophthalmos; Current Visit: Yes Status: Acute . Due to severe thyrotoxicosis Mild improvement, treat underlying cause with methimazole -- Thyrotoxicosis Current Visit: Yes Status: Acute . Severe exophthalmos , eye care , eye lubrication Continue methimazole was increased from 10 mg to 20 mg 3 times a day Follow-up CBC and LFTs Max dose that can be used is a 60 mg/day Patient has I T4 and low TSH No endocrine service available, rest of the work-up upon discharge with his end ocrinologist Will hold PTU, check TFTs, and adjust the medications Propranolol 20 mg twice a day added. 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 Monitor CK levels --Unsteady gait Current Visit: Yes Status: Acute Probably secondary to myopathy Neurological causes to be ruled out - HIV (human immunodeficiency virus infection) Current Visit: Yes Status: Chronic Continue Biktarvy --DVT prophylaxis Current Visit: Yes Status: Acute On heparin and GI prophylaxis Closely monitor the patient and adjust management as needed Plan of care reviewed with the patient and his nurse 09/12/2020; patient has severe hypothyroidism With exophthalmos, tremulousness, and myalgias Patient also has mild foot drop Significantly improved today, though TSH and free T4 are still abnormal 09/13/2020; patient feels slightly better Continue current management 09/14/2020; patient's exophthalmos, myalgias And myopathy slightly improved. Possible DC in 1 to 2 days if stable History Interval history: I have seen and examined the patient at the bedside this morning Patient feels slightly better Able to ambulate in his room Mild foot drop Vital signs noted Hospitalist Physical - Constitutional Vitals: Temp Pulse Resp BP Pulse Ox 98.2 F 75 18 100/52 96 09/14/20 19:19 09/14/20 19:19 09/14/20 19:19 09/14/20 19:19 09/14/20 19:19 General appearance: Present: no acute distress, well-nourished - EENT Eyes: Present: PERRL, EOM intact, exopthalmos - Neck Neck: Present: supple, normal ROM - Respiratory Respiratory effort: normal Respiratory: bilateral: diminished, negative: rales, rhonchi, wheezing - Cardiovascular Rhythm: regular Heart Sounds: Present: S1 & S2 - Extremities Extremities: no ischemia, No edema - Abdominal General gastrointestinal: soft, non-tender, non-distended, normal bowel sounds - Integumentary Integumentary: Present: clear, warm - Psychiatric Psychiatric: appropriate mood/affect, cooperative - Neurologic Neurologic: CNII-XII intact, moves all extremities HEART Score - HEART Score Troponin: Troponin T < 0.010 ng/mL (0.00-0.029) 09/10/20 11:55 Results - Labs CBC & Chem 7: 09/13/20 09:45 09/12/20 05:39 Labs: Laboratory Last Values WBC 4.1 K/mm3 (4.5-11.0) L 09/13/20 09:45 RBC 5.56 M/mm3 (3.65-5.03) H 09/13/20 09:45 Hgb 14.9 gm/dl (11.8-15.2) 09/13/20 09:45 Hct 45.4 % (35.5-45.6) 09/13/20 09:45 MCV 82 fl (84-94) L 09/13/20 09:45 MCH 27 pg (28-32) L 09/13/20 09:45 MCHC 33 % (32-34) 09/13/20 09:45 RDW 13.9 % (13.2-15.2) 09/13/20 09:45 Plt Count 219 K/mm3 (140-440) 09/13/20 09:45 Lymph % (Auto) 42.8 % (13.4-35.0) H 09/13/20 09:45 [place] % (Auto) 13.0 % (0.0-7.3) H 09/13/20 09:45 Eos % (Auto) 6.0 % (0.0-4.3) H 09/13/20 09:45 Baso % (Auto) 0.5 % (0.0-1.8) 09/13/20 09:45 Lymph # (Auto) 1.7 K/mm3 (1.2-5.4) 09/13/20 09:45 [place] # (Auto) 0.5 K/mm3 (0.0-0.8) 09/13/20 09:45 Eos # (Auto) 0.2 K/mm3 (0.0-0.4) 09/13/20 09:45 Baso # (Auto) 0.0 K/mm3 (0.0-0.1) 09/13/20 09:45 Add Manual Diff Complete 09/11/20 04:54 Total Counted 100 09/11/20 04:54 Seg Neutrophils % 37.7 % (40.0-70.0) L 09/13/20 09:45 Seg Neuts % (Manual) 48.0 % (40.0-70.0) 09/11/20 04:54 Band Neutrophils % 1.0 % 09/11/20 04:54 Lymphocytes % (Manual) 39.0 % (13.4-35.0) H 09/11/20 04:54 Monocytes % (Manual) 9.0 % (0.0-7.3) H 09/11/20 04:54 Eosinophils % (Manual) 3.0 % (0.0-4.3) 09/11/20 04:54 Nucleated RBC % Not Reportable 09/11/20 04:54 Seg Neutrophils # 1.5 K/mm3 (1.8-7.7) L 09/13/20 09:45 Seg Neutrophils # Man 1.9 K/mm3 (1.8-7.7) 09/11/20 04:54 Band Neutrophils # 0.0 K/mm3 09/11/20 04:54 Lymphocytes # (Manual) 1.6 K/mm3 (1.2-5.4) 09/11/20 04:54 Abs React Lymphs (Man) 0.0 K/mm3 09/11/20 04:54 Monocytes # (Manual) 0.4 K/mm3 (0.0-0.8) 09/11/20 04:54 Eosinophils # (Manual) 0.1 K/mm3 (0.0-0.4) 09/11/20 04:54 Basophils # (Manual) 0.0 K/mm3 (0.0-0.1) 09/11/20 04:54 Metamyelocytes # 0.0 K/mm3 09/11/20 04:54 Myelocytes # 0.0 K/mm3 09/11/20 04:54 Promyelocytes # 0.0 K/mm3 09/11/20 04:54 Blast Cells # 0.0 K/mm3 09/11/20 04:54 WBC Morphology Not Reportable 09/11/20 04:54 Hypersegmented Neuts Not Reportable 09/11/20 04:54 Hyposegmented Neuts Not Reportable 09/11/20 04:54 Hypogranular Neuts Not Reportable 09/11/20 04:54 Smudge Cells Not Reportable 09/11/20 04:54 Toxic Granulation Not Reportable 09/11/20 04:54 Toxic Vacuolation Not Reportable 09/11/20 04:54 Dohle Bodies Not Reportable 09/11/20 04:54 Pelger-Huet Anomaly Not Reportable 09/11/20 04:54 Reji Rods Not Reportable 09/11/20 04:54 Platelet Estimate Consistent w auto 09/11/20 04:54 Clumped Platelets Not Reportable 09/11/20 04:54 Plt Clumps, EDTA Not Reportable 09/11/20 04:54 Large Platelets Not Reportable 09/11/20 04:54 Giant Platelets Not Reportable 09/11/20 04:54 Platelet Satelliting Not Reportable 09/11/20 04:54 Plt Morphology Comment Not Reportable 09/11/20 04:54 RBC Morphology Normal 09/11/20 04:54 Dimorphic RBCs Not Reportable 09/11/20 04:54 Polychromasia Not Reportable 09/11/20 04:54 Hypochromasia Not Reportable 09/11/20 04:54 Poikilocytosis Not Reportable 09/11/20 04:54 Anisocytosis Not Reportable 09/11/20 04:54 Microcytosis Not Reportable 09/11/20 04:54 Macrocytosis Not Reportable 09/11/20 04:54 Spherocytes Not Reportable 09/11/20 04:54 Pappenheimer Bodies Not Reportable 09/11/20 04:54 Sickle Cells Not Reportable 09/11/20 04:54 Target Cells Not Reportable 09/11/20 04:54 Tear Drop Cells Not Reportable 09/11/20 04:54 Ovalocytes Not Reportable 09/11/20 04:54 Helmet Cells Not Reportable 09/11/20 04:54 Lee-Verlot Bodies Not Reportable 09/11/20 04:54 [place] Rings Not Reportable 09/11/20 04:54 [place] Cells Not Reportable 09/11/20 04:54 Bite Cells Not Reportable 09/11/20 04:54 Crenated Cell Not Reportable 09/11/20 04:54 Elliptocytes Not Reportable 09/11/20 04:54 Acanthocytes (Spur) Not Reportable 09/11/20 04:54 Rouleaux Not Reportable 09/11/20 04:54 Hemoglobin C Crystals Not Reportable 09/11/20 04:54 Schistocytes Not Reportable 09/11/20 04:54 Malaria parasites Not Reportable 09/11/20 04:54 ESR 1 mm/Hr (0-20) 09/12/20 15:24 Winston Bodies Not Reportable 09/11/20 04:54 Hem Pathologist Commnt No 09/11/20 04:54 PT 15.1 Sec. (12.2-14.9) H 09/10/20 11:55 INR 1.13 (0.87-1.13) 09/10/20 11:55 APTT 28.6 Sec. (24.2-36.6) 09/10/20 11:55 Thrombin Time 16.1 Sec. (15.1-19.6) 09/10/20 11:55 Sodium 138 mmol/L (137-145) 09/12/20 05:39 Potassium 4.5 mmol/L (3.6-5.0) 09/12/20 05:39 Chloride 103.5 mmol/L (98-107) 09/12/20 05:39 Carbon Dioxide 29 mmol/L (22-30) 09/12/20 05:39 Anion Gap 10 mmol/L 09/12/20 05:39 BUN 9 mg/dL (9-20) 09/12/20 05:39 Creatinine 0.7 mg/dL (0.8-1.3) L 09/12/20 05:39 Estimated GFR > 60 ml/min 09/12/20 05:39 BUN/Creatinine Ratio 13 % 09/12/20 05:39 Glucose 97 mg/dL (75-100) 09/12/20 05:39 Hemoglobin A1c 5.6 % (4-6) 09/11/20 04:54 Calcium 8.7 mg/dL (8.4-10.2) 09/12/20 05:39 Phosphorus 3.40 mg/dL (2.5-4.5) 09/10/20 08:02 Magnesium 1.90 mg/dL (1.7-2.3) 09/10/20 08:02 Total Bilirubin 0.30 mg/dL (0.1-1.2) 09/13/20 09:45 Direct Bilirubin < 0.2 mg/dL (0-0.2) 09/13/20 09:45 Indirect Bilirubin 0.1 mg/dL 09/13/20 09:45 AST 14 units/L (5-40) 09/13/20 09:45 ALT 17 units/L (7-56) 09/13/20 09:45 Alkaline Phosphatase 130 units/L (35-129) H 09/13/20 09:45 Total Creatine Kinase 151 units/L (55-170) 09/12/20 15:24 CK-MB (CK-2) 19.4 ng/mL (0.0-4.0) H 09/10/20 11:55 CK-MB (CK-2) Rel Index 4.0 (0-4) 09/10/20 11:55 Troponin T < 0.010 ng/mL (0.00-0.029) 09/10/20 11:55 Total Protein 6.5 g/dL (6.3-8.2) 09/13/20 09:45 Albumin 3.8 g/dL (3.9-5) L 09/13/20 09:45 Albumin/Globulin Ratio 1.4 % 09/13/20 09:45 TSH < 0.005 mlU/mL (0.270-4.200) L 09/14/20 06:09 Free T4 1.31 ng/dL (0.76-1.46) 09/14/20 06:09 Urine Color Yellow (Yellow) 09/10/20 20:49 Urine Turbidity Clear (Clear) 09/10/20 20:49 Urine pH 5.0 (5.0-7.0) 09/10/20 20:49 Ur Specific [place] 1.021 (1.003-1.030) 09/10/20 20:49 Urine Protein 30 mg/dl mg/dL (Negative) 09/10/20 20:49 Urine Glucose (UA) Neg mg/dL (Negative) 09/10/20 20:49 Urine Ketones 20 mg/dL (Negative) 09/10/20 20:49 Urine Blood Neg (Negative) 09/10/20 20:49 Urine Nitrite Neg (Negative) 09/10/20 20:49 Urine Bilirubin Neg (Negative) 09/10/20 20:49 Urine Urobilinogen 4.0 mg/dL (<2.0) 09/10/20 20:49 Ur Leukocyte Esterase Neg (Negative) 09/10/20 20:49 Urine WBC (Auto) < 1.0 /HPF (0.0-6.0) 09/10/20 20:49 Urine RBC (Auto) 1.0 /HPF (0.0-6.0) 09/10/20 20:49 Urine Mucus Few /HPF 09/10/20 20:49 Urine Opiates Screen Negative 09/10/20 20:49 Urine Methadone Screen Negative 09/10/20 20:49 Ur Barbiturates Screen Negative 09/10/20 20:49 Ur Phencyclidine Scrn Negative 09/10/20 20:49 Ur Amphetamines Screen Negative 09/10/20 20:49 U Benzodiazepines Scrn Negative 09/10/20 20:49 Urine Cocaine Screen Negative 09/10/20 20:49 U Marijuana (THC) Screen Negative 09/10/20 20:49 Drugs of Abuse Note Disclamer 09/10/20 20:49 Plasma/Serum Alcohol < 0.01 % (0-0.07) 09/10/20 11:55 Rabago/IV: Voiding Method Toilet Active Medications - Current Medications Current Medications: Generic Name Dose Route Start Last Admin Trade Name Freq PRN Reason Stop Dose Admin Acetaminophen 650 mg 09/10/20 22:11 Acetaminophen 325 Mg Tab PO Q4H PRN Pain MILD(1-3)/Fever >100.5/PADRON Emtricitabine 200 mg 09/11/20 10:00 09/14/20 11:02 Emtricitabine 200 Mg Cap PO 200 mg QDAY ETELVINA Administration Hydromorphone HCl 0.5 mg 09/10/20 22:11 Hydromorphone 1 Mg/1 Ml Inj IV Q3H PRN Pain , Severe (7-10) Ibuprofen 600 mg 09/10/20 21:52 06/16/21 22:25 Ibuprofen 600 Mg Tab PO 600 mg Q6H PRN Administration Pain, Mild (1-3) Methimazole 20 mg 09/10/20 22:27 09/14/20 14:09 Methimazole 5 Mg Tab PO 20 mg Q8HR ETELVINA Administration Metoclopramide HCl 10 mg 09/10/20 22:11 Metoclopramide 10 Mg/2 Ml Inj IV Q6H PRN Nausea And Vomiting Ondansetron HCl 4 mg 09/10/20 22:11 Ondansetron 4 Mg/2 Ml Inj IV Q8H PRN Nausea And Vomiting Oxycodone/Acetaminophen 1 tab 09/10/20 22:11 09/14/20 11:02 Oxycodone /Acetaminophen 5-325mg Tab PO 1 tab Q6H PRN Administration Pain, Moderate (4-6) Propranolol HCl 20 mg 09/10/20 23:00 09/14/20 11:02 Propranolol 10 Mg Tab PO 20 mg Q12HR ETELVINA Administration Sodium Chloride 10 ml 09/11/20 10:00 09/14/20 11:03 Sodium Chloride 0.9% 10 Ml Flush Syringe IV 10 ml BID ETELVINA Administration Sodium Chloride 10 ml 09/10/20 22:11 Sodium Chloride 0.9% 10 Ml Flush Syringe IV PRN PRN LINE FLUSH Tenofovir Disoproxil Fumarate 300 mg 09/11/20 10:00 09/14/20 11:02 Tenofovir 300 Mg Tab PO 300 mg QDAY ETELVINA Administration
[2020-09-15 05:33] LABS: Free T4 (Free Thyroxine) 1.22 ng/dL (0.76-1.46)
[2020-09-15] MEDS: methIMAzole 5 MG TAB PO SCH ×3 (05:54→21:34)
[2020-09-15] MEDS: EMTRICITABINE 200 MG CAP PO SCH (09:12)
[2020-09-15] MEDS: TENOFOVIR 300 MG TAB PO SCH (09:12)
[2020-09-15] MEDS: DOLUTEGRAVIR 50 MG TAB PO SCH (09:13)
[2020-09-15] MEDS: PROPRANOLOL 10 MG TAB PO SCH ×2 (09:13→21:34)
--- NOTE | 2020-09-15 14:37 | Progress Note ---
History Interval history: I have seen and examined the patient at the bedside this morning Patient's chart and medications reviewed Patient feels slightly better however he is TSH is still low T4 slightly improved Exophthalmos mild improvement Patient tolerated physical therapy Vital signs noted Hospitalist Physical - Constitutional Vitals: Temp Pulse Resp BP Pulse Ox 98.8 F 78 18 132/71 97 09/15/20 11:47 09/15/20 11:47 09/15/20 11:47 09/15/20 11:47 09/15/20 11:47 General appearance: Present: no acute distress, well-nourished - EENT Eyes: Present: PERRL, EOM intact - Neck Neck: Present: supple, normal ROM - Respiratory Respiratory effort: normal Respiratory: bilateral: diminished, negative: rales, rhonchi, wheezing - Cardiovascular Rhythm: regular Heart Sounds: Present: S1 & S2 - Extremities Extremities: no ischemia, No edema Extremity abnormal: other (Bilateral slight foot drop) - Abdominal General gastrointestinal: soft, non-tender, non-distended, normal bowel sounds - Integumentary Integumentary: Present: clear, warm - Psychiatric Psychiatric: appropriate mood/affect, cooperative - Neurologic Neurologic: CNII-XII intact, moves all extremities HEART Score - HEART Score Troponin: Troponin T < 0.010 ng/mL (0.00-0.029) 09/10/20 11:55 Results - Labs CBC & Chem 7: 09/13/20 09:45 09/12/20 05:39 Labs: Laboratory Last Values WBC 4.1 K/mm3 (4.5-11.0) L 09/13/20 09:45 RBC 5.56 M/mm3 (3.65-5.03) H 09/13/20 09:45 Hgb 14.9 gm/dl (11.8-15.2) 09/13/20 09:45 Hct 45.4 % (35.5-45.6) 09/13/20 09:45 MCV 82 fl (84-94) L 09/13/20 09:45 MCH 27 pg (28-32) L 09/13/20 09:45 MCHC 33 % (32-34) 09/13/20 09:45 RDW 13.9 % (13.2-15.2) 09/13/20 09:45 Plt Count 219 K/mm3 (140-440) 09/13/20 09:45 Lymph % (Auto) 42.8 % (13.4-35.0) H 09/13/20 09:45 [place] % (Auto) 13.0 % (0.0-7.3) H 09/13/20 09:45 Eos % (Auto) 6.0 % (0.0-4.3) H 09/13/20 09:45 Baso % (Auto) 0.5 % (0.0-1.8) 09/13/20 09:45 Lymph # (Auto) 1.7 K/mm3 (1.2-5.4) 09/13/20 09:45 [place] # (Auto) 0.5 K/mm3 (0.0-0.8) 09/13/20 09:45 Eos # (Auto) 0.2 K/mm3 (0.0-0.4) 09/13/20 09:45 Baso # (Auto) 0.0 K/mm3 (0.0-0.1) 09/13/20 09:45 Add Manual Diff Complete 09/11/20 04:54 Total Counted 100 09/11/20 04:54 Seg Neutrophils % 37.7 % (40.0-70.0) L 09/13/20 09:45 Seg Neuts % (Manual) 48.0 % (40.0-70.0) 09/11/20 04:54 Band Neutrophils % 1.0 % 09/11/20 04:54 Lymphocytes % (Manual) 39.0 % (13.4-35.0) H 09/11/20 04:54 Monocytes % (Manual) 9.0 % (0.0-7.3) H 09/11/20 04:54 Eosinophils % (Manual) 3.0 % (0.0-4.3) 09/11/20 04:54 Nucleated RBC % Not Reportable 09/11/20 04:54 Seg Neutrophils # 1.5 K/mm3 (1.8-7.7) L 09/13/20 09:45 Seg Neutrophils # Man 1.9 K/mm3 (1.8-7.7) 09/11/20 04:54 Band Neutrophils # 0.0 K/mm3 09/11/20 04:54 Lymphocytes # (Manual) 1.6 K/mm3 (1.2-5.4) 09/11/20 04:54 Abs React Lymphs (Man) 0.0 K/mm3 09/11/20 04:54 Monocytes # (Manual) 0.4 K/mm3 (0.0-0.8) 09/11/20 04:54 Eosinophils # (Manual) 0.1 K/mm3 (0.0-0.4) 09/11/20 04:54 Basophils # (Manual) 0.0 K/mm3 (0.0-0.1) 09/11/20 04:54 Metamyelocytes # 0.0 K/mm3 09/11/20 04:54 Myelocytes # 0.0 K/mm3 09/11/20 04:54 Promyelocytes # 0.0 K/mm3 09/11/20 04:54 Blast Cells # 0.0 K/mm3 09/11/20 04:54 WBC Morphology Not Reportable 09/11/20 04:54 Hypersegmented Neuts Not Reportable 09/11/20 04:54 Hyposegmented Neuts Not Reportable 09/11/20 04:54 Hypogranular Neuts Not Reportable 09/11/20 04:54 Smudge Cells Not Reportable 09/11/20 04:54 Toxic Granulation Not Reportable 09/11/20 04:54 Toxic Vacuolation Not Reportable 09/11/20 04:54 Dohle Bodies Not Reportable 09/11/20 04:54 Pelger-Huet Anomaly Not Reportable 09/11/20 04:54 Reji Rods Not Reportable 09/11/20 04:54 Platelet Estimate Consistent w auto 09/11/20 04:54 Clumped Platelets Not Reportable 09/11/20 04:54 Plt Clumps, EDTA Not Reportable 09/11/20 04:54 Large Platelets Not Reportable 09/11/20 04:54 Giant Platelets Not Reportable 09/11/20 04:54 Platelet Satelliting Not Reportable 09/11/20 04:54 Plt Morphology Comment Not Reportable 09/11/20 04:54 RBC Morphology Normal 09/11/20 04:54 Dimorphic RBCs Not Reportable 09/11/20 04:54 Polychromasia Not Reportable 09/11/20 04:54 Hypochromasia Not Reportable 09/11/20 04:54 Poikilocytosis Not Reportable 09/11/20 04:54 Anisocytosis Not Reportable 09/11/20 04:54 Microcytosis Not Reportable 09/11/20 04:54 Macrocytosis Not Reportable 09/11/20 04:54 Spherocytes Not Reportable 09/11/20 04:54 Pappenheimer Bodies Not Reportable 09/11/20 04:54 Sickle Cells Not Reportable 09/11/20 04:54 Target Cells Not Reportable 09/11/20 04:54 Tear Drop Cells Not Reportable 09/11/20 04:54 Ovalocytes Not Reportable 09/11/20 04:54 Helmet Cells Not Reportable 09/11/20 04:54 [place] Bodies Not Reportable 09/11/20 04:54 [place] Rings Not Reportable 09/11/20 04:54 [place] Cells Not Reportable 09/11/20 04:54 Bite Cells Not Reportable 09/11/20 04:54 Crenated Cell Not Reportable 09/11/20 04:54 Elliptocytes Not Reportable 09/11/20 04:54 Acanthocytes (Spur) Not Reportable 09/11/20 04:54 Rouleaux Not Reportable 09/11/20 04:54 Hemoglobin C Crystals Not Reportable 09/11/20 04:54 Schistocytes Not Reportable 09/11/20 04:54 Malaria parasites Not Reportable 09/11/20 04:54 ESR 1 mm/Hr (0-20) 09/12/20 15:24 [place] Bodies Not Reportable 09/11/20 04:54 Hem Pathologist Commnt No 09/11/20 04:54 PT 15.1 Sec. (12.2-14.9) H 09/10/20 11:55 INR 1.13 (0.87-1.13) 09/10/20 11:55 APTT 28.6 Sec. (24.2-36.6) 09/10/20 11:55 Thrombin Time 16.1 Sec. (15.1-19.6) 09/10/20 11:55 Sodium 138 mmol/L (137-145) 09/12/20 05:39 Potassium 4.5 mmol/L (3.6-5.0) 09/12/20 05:39 Chloride 103.5 mmol/L (98-107) 09/12/20 05:39 Carbon Dioxide 29 mmol/L (22-30) 09/12/20 05:39 Anion Gap 10 mmol/L 09/12/20 05:39 BUN 9 mg/dL (9-20) 09/12/20 05:39 Creatinine 0.7 mg/dL (0.8-1.3) L 09/12/20 05:39 Estimated GFR > 60 ml/min 09/12/20 05:39 BUN/Creatinine Ratio 13 % 09/12/20 05:39 Glucose 97 mg/dL (75-100) 09/12/20 05:39 Hemoglobin A1c 5.6 % (4-6) 09/11/20 04:54 Calcium 8.7 mg/dL (8.4-10.2) 09/12/20 05:39 Phosphorus 3.40 mg/dL (2.5-4.5) 09/10/20 08:02 Magnesium 1.90 mg/dL (1.7-2.3) 09/10/20 08:02 Total Bilirubin 0.30 mg/dL (0.1-1.2) 09/13/20 09:45 Direct Bilirubin < 0.2 mg/dL (0-0.2) 09/13/20 09:45 Indirect Bilirubin 0.1 mg/dL 09/13/20 09:45 AST 14 units/L (5-40) 09/13/20 09:45 ALT 17 units/L (7-56) 09/13/20 09:45 Alkaline Phosphatase 130 units/L (35-129) H 09/13/20 09:45 Total Creatine Kinase 151 units/L (55-170) 09/12/20 15:24 CK-MB (CK-2) 19.4 ng/mL (0.0-4.0) H 09/10/20 11:55 CK-MB (CK-2) Rel Index 4.0 (0-4) 09/10/20 11:55 Troponin T < 0.010 ng/mL (0.00-0.029) 09/10/20 11:55 Total Protein 6.5 g/dL (6.3-8.2) 09/13/20 09:45 Albumin 3.8 g/dL (3.9-5) L 09/13/20 09:45 Albumin/Globulin Ratio 1.4 % 09/13/20 09:45 TSH < 0.005 mlU/mL (0.270-4.200) L 09/15/20 04:18 Free T4 1.22 ng/dL (0.76-1.46) 09/15/20 04:18 Urine Color Yellow (Yellow) 09/10/20 20:49 Urine Turbidity Clear (Clear) 09/10/20 20:49 Urine pH 5.0 (5.0-7.0) 09/10/20 20:49 Ur Specific [place] 1.021 (1.003-1.030) 09/10/20 20:49 Urine Protein 30 mg/dl mg/dL (Negative) 09/10/20 20:49 Urine Glucose (UA) Neg mg/dL (Negative) 09/10/20 20:49 Urine Ketones 20 mg/dL (Negative) 09/10/20 20:49 Urine Blood Neg (Negative) 09/10/20 20:49 Urine Nitrite Neg (Negative) 09/10/20 20:49 Urine Bilirubin Neg (Negative) 09/10/20 20:49 Urine Urobilinogen 4.0 mg/dL (<2.0) 09/10/20 20:49 Ur Leukocyte Esterase Neg (Negative) 09/10/20 20:49 Urine WBC (Auto) < 1.0 /HPF (0.0-6.0) 09/10/20 20:49 Urine RBC (Auto) 1.0 /HPF (0.0-6.0) 09/10/20 20:49 Urine Mucus Few /HPF 09/10/20 20:49 Urine Opiates Screen Negative 09/10/20 20:49 Urine Methadone Screen Negative 09/10/20 20:49 Ur Barbiturates Screen Negative 09/10/20 20:49 Ur Phencyclidine Scrn Negative 09/10/20 20:49 Ur Amphetamines Screen Negative 09/10/20 20:49 U Benzodiazepines Scrn Negative 09/10/20 20:49 Urine Cocaine Screen Negative 09/10/20 20:49 U Marijuana (THC) Screen Negative 09/10/20 20:49 Drugs of Abuse Note Disclamer 09/10/20 20:49 Plasma/Serum Alcohol < 0.01 % (0-0.07) 09/10/20 11:55 Rabago/IV: Voiding Method Urinal Active Medications - Current Medications Current Medications: Generic Name Dose Route Start Last Admin Trade Name Freq PRN Reason Stop Dose Admin Acetaminophen 650 mg 09/10/20 22:11 Acetaminophen 325 Mg Tab PO Q4H PRN Pain MILD(1-3)/Fever >100.5/PADRON Emtricitabine 200 mg 09/11/20 10:00 09/15/20 09:12 Emtricitabine 200 Mg Cap PO 200 mg QDAY ETELVINA Administration Hydromorphone HCl 0.5 mg 09/10/20 22:11 Hydromorphone 1 Mg/1 Ml Inj IV Q3H PRN Pain , Severe (7-10) Ibuprofen 600 mg 09/10/20 21:52 09/10/20 22:25 Ibuprofen 600 Mg Tab PO 600 mg Q6H PRN Administration Pain, Mild (1-3) Methimazole 20 mg 09/10/20 22:27 09/15/20 13:51 Methimazole 5 Mg Tab PO 20 mg Q8HR ETELVINA Administration Metoclopramide HCl 10 mg 09/10/20 22:11 Metoclopramide 10 Mg/2 Ml Inj IV Q6H PRN Nausea And Vomiting Ondansetron HCl 4 mg 09/10/20 22:11 Ondansetron 4 Mg/2 Ml Inj IV Q8H PRN Nausea And Vomiting Oxycodone/Acetaminophen 1 tab 09/10/20 22:11 09/14/20 22:16 Oxycodone /Acetaminophen 5-325mg Tab PO 1 tab Q6H PRN Administration Pain, Moderate (4-6) Propranolol HCl 20 mg 09/10/20 23:00 09/15/20 09:13 Propranolol 10 Mg Tab PO 20 mg Q12HR ETELVINA Administration Sodium Chloride 10 ml 09/11/20 10:00 09/15/20 09:13 Sodium Chloride 0.9% 10 Ml Flush Syringe IV 10 ml BID ETELVINA Administration Sodium Chloride 10 ml 09/10/20 22:11 Sodium Chloride 0.9% 10 Ml Flush Syringe IV PRN PRN LINE FLUSH Tenofovir Disoproxil Fumarate 300 mg 09/11/20 10:00 09/15/20 09:12 Tenofovir 300 Mg Tab PO 300 mg QDAY ETELVINA Administration
--- NOTE | 2020-09-15 14:44 | Progress Note ---
Assessment and Plan Assessment and plan: --Exophthalmos; Current Visit: Yes Status: Acute . Due to severe thyrotoxicosis Mild improvement, treat underlying cause with methimazole -- Thyrotoxicosis Current Visit: Yes Status: Acute . Severe exophthalmos , eye care , eye lubrication Continue methimazole was increased from 10 mg to 20 mg 3 times a day Follow-up CBC and LFTs Max dose that can be used is a 60 mg/day Patient has I T4 and low TSH No endocrine service available, rest of the work-up upon discharge with his end ocrinologist Will hold PTU, check TFTs, and adjust the medications Propranolol 20 mg twice a day added. 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 Monitor CK levels --Unsteady gait Current Visit: Yes Status: Acute Probably secondary to myopathy Neurological causes to be ruled out - HIV (human immunodeficiency virus infection) Current Visit: Yes Status: Chronic Continue Biktarvy --DVT prophylaxis Current Visit: Yes Status: Acute On heparin and GI prophylaxis Closely monitor the patient and adjust management as needed Plan of care reviewed with the patient and his nurse Continue current management Possible discharge tomorrow PT recommended home health discharge 09/12/2020; patient has severe hypothyroidism With exophthalmos, tremulousness, and myalgias Patient also has mild foot drop Significantly improved today, though TSH and free T4 are still abnormal 09/13/2020; patient feels slightly better Continue current management 09/14/2020; patient's exophthalmos, myalgias And myopathy slightly improved. Possible DC in 1 to 2 days if stable 09/15/2020; ambulate as tolerated Fall precautions, possible discharge tomorrow if stable History Interval history: I have seen and examined the patient at the bedside today patient's chart and medications reviewed, Patient feels slightly better Still has significant exophthalmos but markedly improved from the time of admission complaint of generalized weakness Vital signs noted Hospitalist Physical - Constitutional Vitals: Temp Pulse Resp BP Pulse Ox 98.8 F 78 18 132/71 97 09/15/20 11:47 09/15/20 11:47 09/15/20 11:47 09/15/20 11:47 09/15/20 11:47 General appearance: Present: no acute distress, well-nourished - EENT Eyes: Present: PERRL, EOM intact - Neck Neck: Present: supple, normal ROM - Respiratory Respiratory effort: normal Respiratory: bilateral: diminished, negative: rales, rhonchi, wheezing - Cardiovascular Rhythm: regular Heart Sounds: Present: S1 & S2 - Extremities Extremities: no ischemia, No edema - Abdominal General gastrointestinal: soft, non-tender, non-distended, normal bowel sounds - Integumentary Integumentary: Present: clear, warm - Psychiatric Psychiatric: appropriate mood/affect, cooperative - Neurologic Neurologic: moves all extremities (Mild foot drop) HEART Score - HEART Score Troponin: Troponin T < 0.010 ng/mL (0.00-0.029) 09/10/20 11:55 Results - Labs CBC & Chem 7: 09/13/20 09:45 09/12/20 05:39 Labs: Laboratory Last Values WBC 4.1 K/mm3 (4.5-11.0) L 09/13/20 09:45 RBC 5.56 M/mm3 (3.65-5.03) H 09/13/20 09:45 Hgb 14.9 gm/dl (11.8-15.2) 09/13/20 09:45 Hct 45.4 % (35.5-45.6) 09/13/20 09:45 MCV 82 fl (84-94) L 09/13/20 09:45 MCH 27 pg (28-32) L 09/13/20 09:45 MCHC 33 % (32-34) 09/13/20 09:45 RDW 13.9 % (13.2-15.2) 09/13/20 09:45 Plt Count 219 K/mm3 (140-440) 09/13/20 09:45 Lymph % (Auto) 42.8 % (13.4-35.0) H 09/13/20 09:45 [place] % (Auto) 13.0 % (0.0-7.3) H 09/13/20 09:45 Eos % (Auto) 6.0 % (0.0-4.3) H 09/13/20 09:45 Baso % (Auto) 0.5 % (0.0-1.8) 09/13/20 09:45 Lymph # (Auto) 1.7 K/mm3 (1.2-5.4) 09/13/20 09:45 [place] # (Auto) 0.5 K/mm3 (0.0-0.8) 09/13/20 09:45 Eos # (Auto) 0.2 K/mm3 (0.0-0.4) 09/13/20 09:45 Baso # (Auto) 0.0 K/mm3 (0.0-0.1) 09/13/20 09:45 Add Manual Diff Complete 09/11/20 04:54 Total Counted 100 09/11/20 04:54 Seg Neutrophils % 37.7 % (40.0-70.0) L 09/13/20 09:45 Seg Neuts % (Manual) 48.0 % (40.0-70.0) 09/11/20 04:54 Band Neutrophils % 1.0 % 09/11/20 04:54 Lymphocytes % (Manual) 39.0 % (13.4-35.0) H 09/11/20 04:54 Monocytes % (Manual) 9.0 % (0.0-7.3) H 09/11/20 04:54 Eosinophils % (Manual) 3.0 % (0.0-4.3) 09/11/20 04:54 Nucleated RBC % Not Reportable 09/11/20 04:54 Seg Neutrophils # 1.5 K/mm3 (1.8-7.7) L 09/13/20 09:45 Seg Neutrophils # Man 1.9 K/mm3 (1.8-7.7) 09/11/20 04:54 Band Neutrophils # 0.0 K/mm3 09/11/20 04:54 Lymphocytes # (Manual) 1.6 K/mm3 (1.2-5.4) 09/11/20 04:54 Abs React Lymphs (Man) 0.0 K/mm3 09/11/20 04:54 Monocytes # (Manual) 0.4 K/mm3 (0.0-0.8) 09/11/20 04:54 Eosinophils # (Manual) 0.1 K/mm3 (0.0-0.4) 09/11/20 04:54 Basophils # (Manual) 0.0 K/mm3 (0.0-0.1) 09/11/20 04:54 Metamyelocytes # 0.0 K/mm3 09/11/20 04:54 Myelocytes # 0.0 K/mm3 09/11/20 04:54 Promyelocytes # 0.0 K/mm3 09/11/20 04:54 Blast Cells # 0.0 K/mm3 09/11/20 04:54 WBC Morphology Not Reportable 09/11/20 04:54 Hypersegmented Neuts Not Reportable 09/11/20 04:54 Hyposegmented Neuts Not Reportable 09/11/20 04:54 Hypogranular Neuts Not Reportable 09/11/20 04:54 Smudge Cells Not Reportable 09/11/20 04:54 Toxic Granulation Not Reportable 09/11/20 04:54 Toxic Vacuolation Not Reportable 09/11/20 04:54 Dohle Bodies Not Reportable 09/11/20 04:54 Pelger-Huet Anomaly Not Reportable 09/11/20 04:54 Reji Rods Not Reportable 09/11/20 04:54 Platelet Estimate Consistent w auto 09/11/20 04:54 Clumped Platelets Not Reportable 09/11/20 04:54 Plt Clumps, EDTA Not Reportable 09/11/20 04:54 Large Platelets Not Reportable 09/11/20 04:54 Giant Platelets Not Reportable 09/11/20 04:54 Platelet Satelliting Not Reportable 09/11/20 04:54 Plt Morphology Comment Not Reportable 09/11/20 04:54 RBC Morphology Normal 09/11/20 04:54 Dimorphic RBCs Not Reportable 09/11/20 04:54 Polychromasia Not Reportable 09/11/20 04:54 Hypochromasia Not Reportable 09/11/20 04:54 Poikilocytosis Not Reportable 09/11/20 04:54 Anisocytosis Not Reportable 09/11/20 04:54 Microcytosis Not Reportable 09/11/20 04:54 Macrocytosis Not Reportable 09/11/20 04:54 Spherocytes Not Reportable 09/11/20 04:54 Pappenheimer Bodies Not Reportable 09/11/20 04:54 Sickle Cells Not Reportable 09/11/20 04:54 Target Cells Not Reportable 09/11/20 04:54 Tear Drop Cells Not Reportable 09/11/20 04:54 Ovalocytes Not Reportable 09/11/20 04:54 Helmet Cells Not Reportable 09/11/20 04:54 [place] Bodies Not Reportable 09/11/20 04:54 [place] Rings Not Reportable 09/11/20 04:54 [place] Cells Not Reportable 09/11/20 04:54 Bite Cells Not Reportable 09/11/20 04:54 Crenated Cell Not Reportable 09/11/20 04:54 Elliptocytes Not Reportable 09/11/20 04:54 Acanthocytes (Spur) Not Reportable 09/11/20 04:54 Rouleaux Not Reportable 09/11/20 04:54 Hemoglobin C Crystals Not Reportable 09/11/20 04:54 Schistocytes Not Reportable 09/11/20 04:54 Malaria parasites Not Reportable 09/11/20 04:54 ESR 1 mm/Hr (0-20) 09/12/20 15:24 [place] Bodies Not Reportable 09/11/20 04:54 Hem Pathologist Commnt No 09/11/20 04:54 PT 15.1 Sec. (12.2-14.9) H 09/10/20 11:55 INR 1.13 (0.87-1.13) 09/10/20 11:55 APTT 28.6 Sec. (24.2-36.6) 09/10/20 11:55 Thrombin Time 16.1 Sec. (15.1-19.6) 09/10/20 11:55 Sodium 138 mmol/L (137-145) 09/12/20 05:39 Potassium 4.5 mmol/L (3.6-5.0) 09/12/20 05:39 Chloride 103.5 mmol/L (98-107) 09/12/20 05:39 Carbon Dioxide 29 mmol/L (22-30) 09/12/20 05:39 Anion Gap 10 mmol/L 09/12/20 05:39 BUN 9 mg/dL (9-20) 09/12/20 05:39 Creatinine 0.7 mg/dL (0.8-1.3) L 09/12/20 05:39 Estimated GFR > 60 ml/min 09/12/20 05:39 BUN/Creatinine Ratio 13 % 09/12/20 05:39 Glucose 97 mg/dL (75-100) 09/12/20 05:39 Hemoglobin A1c 5.6 % (4-6) 09/11/20 04:54 Calcium 8.7 mg/dL (8.4-10.2) 09/12/20 05:39 Phosphorus 3.40 mg/dL (2.5-4.5) 09/10/20 08:02 Magnesium 1.90 mg/dL (1.7-2.3) 09/10/20 08:02 Total Bilirubin 0.30 mg/dL (0.1-1.2) 09/13/20 09:45 Direct Bilirubin < 0.2 mg/dL (0-0.2) 09/13/20 09:45 Indirect Bilirubin 0.1 mg/dL 09/13/20 09:45 AST 14 units/L (5-40) 09/13/20 09:45 ALT 17 units/L (7-56) 09/13/20 09:45 Alkaline Phosphatase 130 units/L (35-129) H 09/13/20 09:45 Total Creatine Kinase 151 units/L (55-170) 09/12/20 15:24 CK-MB (CK-2) 19.4 ng/mL (0.0-4.0) H 09/10/20 11:55 CK-MB (CK-2) Rel Index 4.0 (0-4) 09/10/20 11:55 Troponin T < 0.010 ng/mL (0.00-0.029) 09/10/20 11:55 Total Protein 6.5 g/dL (6.3-8.2) 09/13/20 09:45 Albumin 3.8 g/dL (3.9-5) L 09/13/20 09:45 Albumin/Globulin Ratio 1.4 % 09/13/20 09:45 TSH < 0.005 mlU/mL (0.270-4.200) L 09/15/20 04:18 Free T4 1.22 ng/dL (0.76-1.46) 09/15/20 04:18 Urine Color Yellow (Yellow) 09/10/20 20:49 Urine Turbidity Clear (Clear) 09/10/20 20:49 Urine pH 5.0 (5.0-7.0) 09/10/20 20:49 Ur Specific [place] 1.021 (1.003-1.030) 09/10/20 20:49 Urine Protein 30 mg/dl mg/dL (Negative) 09/10/20 20:49 Urine Glucose (UA) Neg mg/dL (Negative) 09/10/20 20:49 Urine Ketones 20 mg/dL (Negative) 09/10/20 20:49 Urine Blood Neg (Negative) 09/10/20 20:49 Urine Nitrite Neg (Negative) 09/10/20 20:49 Urine Bilirubin Neg (Negative) 09/10/20 20:49 Urine Urobilinogen 4.0 mg/dL (<2.0) 09/10/20 20:49 Ur Leukocyte Esterase Neg (Negative) 09/10/20 20:49 Urine WBC (Auto) < 1.0 /HPF (0.0-6.0) 09/10/20 20:49 Urine RBC (Auto) 1.0 /HPF (0.0-6.0) 09/10/20 20:49 Urine Mucus Few /HPF 09/10/20 20:49 Urine Opiates Screen Negative 09/10/20 20:49 Urine Methadone Screen Negative 09/10/20 20:49 Ur Barbiturates Screen Negative 09/10/20 20:49 Ur Phencyclidine Scrn Negative 09/10/20 20:49 Ur Amphetamines Screen Negative 09/10/20 20:49 U Benzodiazepines Scrn Negative 09/10/20 20:49 Urine Cocaine Screen Negative 09/10/20 20:49 U Marijuana (THC) Screen Negative 09/10/20 20:49 Drugs of Abuse Note Disclamer 09/10/20 20:49 Plasma/Serum Alcohol < 0.01 % (0-0.07) 09/10/20 11:55 Rabago/IV: Voiding Method Urinal Active Medications - Current Medications Current Medications: Generic Name Dose Route Start Last Admin Trade Name Freq PRN Reason Stop Dose Admin Acetaminophen 650 mg 09/10/20 22:11 Acetaminophen 325 Mg Tab PO Q4H PRN Pain MILD(1-3)/Fever >100.5/PADRON Emtricitabine 200 mg 09/11/20 10:00 09/15/20 09:12 Emtricitabine 200 Mg Cap PO 200 mg QDAY ETELVINA Administration Hydromorphone HCl 0.5 mg 09/10/20 22:11 Hydromorphone 1 Mg/1 Ml Inj IV Q3H PRN Pain , Severe (7-10) Ibuprofen 600 mg 09/10/20 21:52 09/10/20 22:25 Ibuprofen 600 Mg Tab PO 600 mg Q6H PRN Administration Pain, Mild (1-3) Methimazole 20 mg 09/10/20 22:27 09/15/20 13:51 Methimazole 5 Mg Tab PO 20 mg Q8HR ETELVINA Administration Metoclopramide HCl 10 mg 09/10/20 22:11 Metoclopramide 10 Mg/2 Ml Inj IV Q6H PRN Nausea And Vomiting Ondansetron HCl 4 mg 09/10/20 22:11 Ondansetron 4 Mg/2 Ml Inj IV Q8H PRN Nausea And Vomiting Oxycodone/Acetaminophen 1 tab 09/10/20 22:11 09/14/20 22:16 Oxycodone /Acetaminophen 5-325mg Tab PO 1 tab Q6H PRN Administration Pain, Moderate (4-6) Propranolol HCl 20 mg 09/10/20 23:00 09/15/20 09:13 Propranolol 10 Mg Tab PO 20 mg Q12HR ETELVINA Administration Sodium Chloride 10 ml 09/11/20 10:00 09/15/20 09:13 Sodium Chloride 0.9% 10 Ml Flush Syringe IV 10 ml BID ETELVINA Administration Sodium Chloride 10 ml 09/10/20 22:11 Sodium Chloride 0.9% 10 Ml Flush Syringe IV PRN PRN LINE FLUSH Tenofovir Disoproxil Fumarate 300 mg 09/11/20 10:00 09/15/20 09:12 Tenofovir 300 Mg Tab PO 300 mg QDAY ETELVINA Administration
[2020-09-15] MEDS: oxyCODONE /ACETAMINOPHEN 5-325MG TAB PO PRN (21:54)
[2020-09-16] MEDS: methIMAzole 5 MG TAB PO SCH (06:07)
[2020-09-16 07:07] LABS: Free T4 (Free Thyroxine) 1.17 ng/dL (0.76-1.46)
[2020-09-16 09:17] VITALS: BP 143/72
[2020-09-16] MEDS: oxyCODONE /ACETAMINOPHEN 5-325MG TAB PO PRN (09:20)
[2020-09-16] MEDS: TENOFOVIR 300 MG TAB PO SCH (09:21)
[2020-09-16] MEDS: DOLUTEGRAVIR 50 MG TAB PO SCH (09:21)
[2020-09-16] MEDS: PROPRANOLOL 10 MG TAB PO SCH (09:21)
[2020-09-16] MEDS: EMTRICITABINE 200 MG CAP PO SCH (09:21)
[2020-09-16 09:55] LABS: ANA Screen, IFA Negative (Negative)
--- NOTE | 2020-09-16 10:03 | Discharge Summary ---
Providers - Providers Date of Admission: 09/10/20 13:54 Date of discharge: 09/16/20 Attending physician: AYRA FREIRE 09/11/20 07:11 Consult to Physician [CONS] Routine Comment: Consulting Provider: PAULINO BLUE Physician Instructions: Reason For Exam: Unsteady gait/myopathy 09/11/20 14:07 Physical Therapy Evaluation and Treat [CONS] Routine Comment: PT to eval and treat Reason For Exam: unsteady gait 09/12/20 16:21 Occupational Therapy Evaluate and Treat [CONS] Routine Comment: Reason For Exam: assess and treat Primary care physician: PLASTIC FINISHER Hospitalization Reason for admission: Unsteady gait, palpitation and exophthalmos Condition: Fair Pertinent studies: CT head without contrast; no acute abnormality noted Bilateral lower extremity venous Doppler; negative for DVT Hospital course: 44-year-old male patient with significant past medical history of HIV hyperthyroidism noncompliant with medications was admitted through emergency room with unsteady gait, palpitation, exophthalmos of 1 weeks duration, symptoms worse the last 2 days prior to admission .patient was on methimazole 10 mg 3 times a day, and claims compliance with medications . Patient was evaluated by neurologist for his myopathy and lower extremity weakness and unsteady gait, Patient's thyroid tests were abnormal, increase the dose of methimazole to 20 mg 3 times a day, CT head without contrast did not show any acute abnormalities, patient symptoms of unsteady gait exophthalmos and tremors and palpitation slowly but gradually improved. Patient received physical therapy occupational therapy, monitored thyroid function tests daily, elevated T4 gradually improved to normal levels However test TSH remained low. Today patient is comfortable no new complaints vital signs stable Patient was strongly advised to protect his eyes with shades and use Clear Eyes drops to lubricate dry eyes due to exophthalmos. Ambulatory tolerating oral nutrition. Patient also has history of HIV on antiretrovirals, advised to follow with his private ID/health department upon discharge Patient strongly advised to comply with medications. Physical therapy and encouraged him to see his private log roller KRISHNA. We do not have endocrine services inpatient in the hospital. Patient is hemodynamically and clinically stable at discharge Discharge diagnosis: --Exophthalmos; Current Visit: Yes Status: Acute . Continue increased dose of methimazole Follow log roller and auto fleet manager Protect eyes with shades and lubricating eyedrops -- Thyrotoxicosis Current Visit: Yes Status: Acute . Increase methimazole dose to 20 mg 3 times a day at this point Advised to see log roller in 3 to 5 days for further recommendations -- Myopathy/foot drop Current Visit: Yes Status: Acute Physical therapy, supportive care Advised to see private neurologist upon discharge --Rhabdomyolysis Current Visit: Yes Status: Acute Received IV fluids. Advised plenty of oral fluids CK levels within normal limits --Unsteady gait Current Visit: Yes Status: Acute Probably secondary to myopathy -- HIV (human immunodeficiency virus infection) Current Visit: Yes Status: Chronic Continue Biktarvy --DVT prophylaxis Current Visit: Yes Status: Acute On heparin and GI prophylaxis Patient is stable at discharge Disposition: [place]-01 TO HOME OR SELFCARE Final Discharge Diagnosis (Prints w/discharge instructions): Thyrotoxicosis. Exophthalmos. Myopathy. Unsteady gait. h/o HIV Time spent for discharge: 35 min Core Measure Documentation - Palliative Care Palliative Care/ Comfort Measures: Not Applicable - Core Measures Any of the following diagnoses?: none Exam - Constitutional Vitals: Temp Pulse Resp BP Pulse Ox 98.1 F 65 19 143/72 100 09/16/20 07:14 09/16/20 09:21 09/16/20 07:14 09/16/20 09:21 09/16/20 07:14 General appearance: Present: no acute distress, well-nourished - EENT Eyes: Present: PERRL, EOM intact, exopthalmos - Neck Neck: Present: supple, normal ROM - Respiratory Respiratory effort: normal Respiratory: bilateral: diminished, negative: rales, rhonchi, wheezing - Cardiovascular Rhythm: regular Heart Sounds: Present: S1 & S2 - Extremities Extremities: no ischemia, No edema - Abdominal General gastrointestinal: Present: soft, non-tender, non-distended, normal bowel sounds - Integumentary Integumentary: Present: clear, warm - Musculoskeletal Musculoskeletal: strength equal bilaterally - Psychiatric Psychiatric: appropriate mood/affect, cooperative - Neurologic Neurologic: CNII-XII intact, moves all extremities Plan Activity: advance as tolerated, fall precautions Diet: regular Additional Instructions: Advised to see your private log roller within 1 week. Advised to see your private ID/health department for your HIV needs. If you have worsening symptoms contact MD or go to emergency room. Advised to see private neurologist for further evaluation and management of lower extremity weakness and unsteady gait as well as foot drop Follow up with: PRIMARY CARE, [Primary Care Provider] - 3-5 Days MARILYN MEDINA MD [Staff Physician] - 7 Days Prescriptions: propranoloL [Inderal] 10 mg PO BID #30 tablet oxyCODONE /ACETAMINOPHEN [Percocet 5/325] 1 tab PO Q12H #8 tablet Methimazole [Tapazole] 10 mg PO Q8H #90
== END 2020-09-16 17:45 | disposition home or self-care (01) | DRG 644 ==
LOC: ED 05:52 → 4A 13:54
PROVIDERS: ADMIT Internal Medicine; ATTEND Internal Medicine
DX: E05.00 Thyrotoxicosis with diffuse goiter without thyrotoxic crisis or storm (principal); M62.82 Rhabdomyolysis; G73.7 Myopathy in diseases classified elsewhere; R26.81 Unsteadiness on feet; I10 Essential (primary) hypertension; R26.9 Unspecified abnormalities of gait and mobility; Z82.49 Family history of ischemic heart disease and other diseases of the circulatory system; Z21 Asymptomatic human immunodeficiency virus [HIV] infection status; G62.9 Polyneuropathy, unspecified
CPT/HCPCS: 36415; 70450; 80048; 80053; 80076; 80307; 80320; 81001; 82550; 82553; 83036; 83735; 84100; 84439; 84443; 84484; 85007; 85025; 85027; 85610; 85652; 85670; 85730; 86038; 93005; 93970; 96360; 96361; G0378; G0480; J3475; J7030

== ENCOUNTER 2020-10-16 17:52 | Emergency (ER) | payer MEDICARE, OTHER ==
--- NOTE | 2020-10-16 20:05 | Event Note ---
ED Screening Note Date of service: 10/16/20 Time: 20:02 ED Screening Note: 44-year-old male patient with history of recent hospital admission for thyrotoxicosis, rhabdomyolysis, and HIV presents to the emergency department with complaints of chest pain and myalgias starting today. Patient states he has experienced similar symptoms on prior occasions during which he was treated for hypomagnesemia. Patient states he has been compliant with his medication regimen. Tachycardic in triage. General: Awake, appropriately interactive, no acute distress. Eyes: Exophthalmos present. Neck: Supple. Full range of motion intact. Cardiovascular: Normal peripheral perfusion. Pulmonary: No respiratory distress. Patient is speaking normally without use of accessory muscles. Skin: No apparent rashes or lesions. Neurological: No facial asymmetry. Speech is clear. Follows commands. Patient is alert and oriented. Musculoskeletal: Moves all four extremities spontaneously with normal range of motion. Psych: Cooperative. Appropriate mood and affect. I have greeted and performed a focused rapid initial assessment of this patient. A comprehensive ED assessment and evaluation of the patient, analysis of all test results, and completion of the medical decision-making process will be conducted by additional ED providers. This initial assessment/diagnostic orders/clinical plan/treatment(s) is/are subject to change based on patients health status, clinical progression and re-assessment. Further treatment and workup at subsequent clinical provider's discretion. Patient/guardian urged not to elope from the ED as their condition may be serious if not clinically assessed and managed.
[2020-10-16 20:30] LABS: Basophils % (Auto) 0.6 % (0.0-1.8); Eosinophils # (Auto) 0.1 K/mm3 (0.0-0.4); Eosinophils % (Auto) 1.5 % (0.0-4.3); Hematocrit 46.7 % (35.5-45.6); Hemoglobin 15.6 gm/dl (11.8-15.2); Lymphocytes # (Auto) 1.9 K/mm3 (1.2-5.4); Mean Corpuscular HGB Conc 33 % (32-34); Mean Corpuscular Volume 82 fl (84-94); Monocytes # (Auto) 0.6 K/mm3 (0.0-0.8); Monocytes % (Auto) 9.7 % (0.0-7.3); Platelet Count 265 K/mm3 (140-440); Red Blood Count 5.72 M/mm3 (3.65-5.03)
[2020-10-16 20:52] LABS: Alanine Aminotransferase 23 units/L (7-56); Albumin 4.6 g/dL (3.9-5); BUN/Creatinine Ratio 12; Blood Urea Nitrogen 11 mg/dL (9-20); Calcium 9.2 mg/dL (8.4-10.2); Hemolysis Index 3
--- NOTE | 2020-10-16 21:04 | XRay Report ---
CHEST 2 VIEWS INDICATION / CLINICAL INFORMATION: chest pain. COMPARISON: 02/02/2016 FINDINGS: SUPPORT DEVICES: None. HEART / MEDIASTINUM: No significant abnormality. LUNGS / PLEURA: No significant pulmonary or pleural abnormality. No pneumothorax. ADDITIONAL FINDINGS: No significant additional findings. IMPRESSION: 1. No acute findings. Signer Name: Kamaljit Mejia DO Signed: 10/16/2020 8:59 PM Workstation Name: [id number]
--- NOTE | 2020-10-17 01:40 | Emergency Department Report ---
ED Chest Pain HPI - General Chief Complaint: Chest Pain Stated Complaint: CHEST/FOOT DISCOMFORT/INVOLUNTARY MOVING PRESSURE PUI?: No Time Seen by Provider: 10/17/20 01:36 Source: patient Mode of arrival: Ambulatory Limitations: No Limitations - History of Present Illness Initial Comments: Patient is a 44-year-old male who presents emergency room with complaints of bilateral chest pain. Patient states his chest pain going on for 2 to 3 days. Patient states his chest pain is a 5-6 out of 10. Patient states the chest pain is better with rest and worse with movement and palpation. Patient denies shortness of breath. Patient denies fever and chills. Patient denies nausea and vomiting. Patient denies diaphoresis. Patient denies history of [place] or a cardiac history. Patient's only past medical history is HIV for which she is taking antiretrovirals and compliant with medications. Patient states he also has a history of hyperthyroidism and is on methimazole. Patient states his thyroid levels have been controlled. Patient also complains of foot discomfort. Patient states is in his bilateral feet. Patient states that he also feels like sometimes his feet move by themselves. Patient states that his foot discomfort has been going on for about 6 weeks. Patient states he has not seen a doctor for this. Patient denies redness to the skin. Patient denies fever and chills. Patient denies inability to walk. Patient states he ambulates fine. Patient states his feet are just uncomfortable. Patient denies recent travel. Patient denies recent international travel. Patient denies exposure to the novel coronavirus. Patient denies sick contacts. Patient denies fever and chills. Patient denies cough. Patient denies diarrhea. Patient denies coming in contact with anybody with symptoms of the novel coronavirus. MD Complaint: chest pain -: Sudden, days(s) Onset: during rest Pain Location: substernal, left chest, right chest Pain Radiation: none Severity: severe Severity scale (0 -10): 7 Quality: pressure Consistency: constant Improves With: rest Worsens With: palpation, movement re: denies: nausea, vomting, diaphoresis, dyspnea, sense of impending doom Other Symptoms: denies: cough, fever, syncope, rash, acid taste in mouth, leg swelling, palpitations, burping Treatments Prior to Arrival: none Aspirin use within the Past 7 Days: (0) No - Related Data On Oral Contraceptives: No Home Medications Medication Instructions Recorded Confirmed Last Taken Biktarvy 50-200-25 mg (Nf) 1 mg PO QDAY 09/10/20 09/11/20 09/08/20 09:00 Previous Rx's Medication Instructions Recorded Last Taken Type Methimazole [Tapazole] 10 mg PO Q8H #90 09/16/20 Unknown Rx oxyCODONE /ACETAMINOPHEN [Percocet 1 tab PO Q12H #8 tablet 09/16/20 Unknown Rx 5/325] propranoloL [Inderal] 10 mg PO BID #30 tablet 09/16/20 Unknown Rx methylPREDNISolone [Medrol 4MG 4 mg PO DAILY 6 Days #1 tab.ds.pk 10/17/20 Unknown Rx DOSEPAK (21 tabs)] Allergies Allergy/AdvReac Type Severity Reaction Status Date / Time No Known Allergies Allergy Verified 10/16/20 18:08 Heart Score - HEART Score History: Slightly suspicious EKG: Normal Age: < 45 Risk factors: No known risk factors Troponin: < normal limit HEART Score: 0 - EKG Read Time Time EKG Completed: 18:17 EKG Read Time: 19:22 ED Review of Systems ROS: Stated complaint: CHEST/FOOT DISCOMFORT/INVOLUNTARY MOVING PRESSURE Other details as noted in HPI Constitutional: denies: chills, fever Eyes: denies: eye pain, eye discharge, vision change ENT: denies: ear pain, throat pain Respiratory: denies: cough, shortness of breath, wheezing Cardiovascular: chest pain. denies: palpitations Endocrine: no symptoms reported Gastrointestinal: denies: abdominal pain, nausea, diarrhea Genitourinary: denies: urgency, dysuria Musculoskeletal: denies: back pain, joint swelling, arthralgia Skin: denies: rash, lesions Neurological: denies: headache, weakness, paresthesias Psychiatric: denies: anxiety, depression Hematological/Lymphatic: denies: easy bleeding, easy bruising ED Past Medical Hx - Past Medical History Hx Hypertension: Yes Hx Congestive Heart Failure: No Hx Diabetes: No Hx Liver Disease: No Hx Sickle Cell Disease: No Hx Arthritis: No Hx Asthma: No Hx COPD: No Hx HIV: Yes Additional medical history: Hyperthyroidism on methimazole - Surgical History Additional Surgical History: Hernia - Social History Smoking Status: Never Smoker Substance Use Type: None - Medications Home Medications: Home Medications Medication Instructions Recorded Confirmed Last Taken Type Cassidyy 50-200-25 mg (Nf) 1 mg PO QDAY 09/10/20 09/11/20 09/08/20 09:00 History Methimazole [Tapazole] 10 mg PO Q8H #90 09/16/20 Unknown Rx oxyCODONE /ACETAMINOPHEN [Percocet 1 tab PO Q12H #8 tablet 09/16/20 Unknown Rx 5/325] propranoloL [Inderal] 10 mg PO BID #30 tablet 09/16/20 Unknown Rx methylPREDNISolone [Medrol 4MG 4 mg PO DAILY 6 Days #1 tab.ds.pk 10/17/20 Unknown Rx DOSEPAK (21 tabs)] ED Physical Exam - General Limitations: No Limitations General appearance: alert, in no apparent distress - Head Head exam: Present: atraumatic, normocephalic - Eye Eye exam: Present: normal appearance - ENT ENT exam: Present: mucous membranes moist - Neck Neck exam: Present: normal inspection, full ROM. Absent: tenderness, meningismus, lymphadenopathy, thyromegaly - Respiratory Respiratory exam: Present: normal lung sounds bilaterally, chest wall tenderness. Absent: respiratory distress, wheezes, rales, rhonchi, stridor - Cardiovascular Cardiovascular Exam: Present: regular rate, normal rhythm. Absent: systolic murmur, diastolic murmur, rubs, gallop - GI/Abdominal GI/Abdominal exam: Present: soft, normal bowel sounds - Rectal Rectal exam: Present: deferred - Extremities Exam Extremities exam: Present: normal inspection - Back Exam Back exam: Present: normal inspection - Neurological Exam Neurological exam: Present: alert, oriented X3 - Psychiatric Psychiatric exam: Present: normal affect, normal mood - Skin Skin exam: Present: warm, dry, intact, normal color. Absent: rash ED Course Vital Signs 10/16/20 10/17/20 18:09 02:34 Temperature 97.8 F 98.2 F Pulse Rate 105 H 56 L Respiratory 16 18 Rate Blood Pressure 120/85 Blood Pressure 116/74 [Left] O2 Sat by Pulse 98 99 Oximetry - Reevaluation(s) Reevaluation #1: I discussed all results and clinical findings with patient. I discussed plan of care with patient. Patient agrees with plan of care. Patient is stable for discharge. Patient will be discharged home. Patient given discharge instructions. Patient voiced understanding of discharge instructions. 10/17/20 04:23 ED Medical Decision Making - Lab Data Result diagrams: 10/16/20 20:09 10/16/20 20:09 - EKG Data -: EKG Interpreted by Me EKG shows normal: sinus rhythm, axis, intervals, QRS complexes, ST-T waves Rate: normal - Radiology Data Radiology results: report reviewed, image reviewed interpreted by me: Chest x-ray: No pneumonia, no pneumothorax, no foreign body, no osseous findings, no acute findings CHEST 2 VIEWS INDICATION / CLINICAL INFORMATION: chest pain. COMPARISON: 02/02/2016 FINDINGS: SUPPORT DEVICES: None. HEART / MEDIASTINUM: No significant abnormality. LUNGS / PLEURA: No significant pulmonary or pleural abnormality. No pneumothorax. ADDITIONAL FINDINGS: No significant additional findings. IMPRESSION: 1. No acute findings. - Medical Decision Making Patient is a 44-year-old male who presents emergency room with complaints of foot discomfort and chest pain. Patient's foot discomfort is chronic. Patient chest pain for 2 to 3 days. Patient is chest pain is reproducible on palpation. Patient has clinical findings of costochondritis. Patient had an EKG done which shows no acute finding and normal STs. Patient had a chest x-ray which was negative for acute findings. I personally reviewed the chest x-ray and EKG. Patient had labs done which were essentially unremarkable except for a low TSH but a normal T4. Patient history of hyper thyroidism on methimazole.. Patient had negative troponins x2. Patient is stable for discharge. Patient not require any further emergency medical services. Patient not require inpatient services. Patient will be referred to his primary care and to a export packer. Patient patient will fax over to her local cardiology group for further evaluation and treatment and restratification since the patient presented to the emergency room with complaints of chest pain. Patient's heart score is low and can be followed as an outpatient. Patient stable for discharge. Patient discharged home. - Differential Diagnosis Chest pain, costochondritis, foot pain, chest wall pain, Critical care attestation.: If time is entered above; I have spent that time in minutes in the direct care of this critically ill patient, excluding procedure time. ED Disposition Clinical Impression: Costochondritis Chest pain Qualifiers: Chest pain type: unspecified Qualified Code(s): R07.9 - Chest pain, unspecified Foot pain Qualifiers: Laterality: unspecified laterality Qualified Code(s): M79.673 - Pain in unspecified foot Disposition: TO HOME OR SELFCARE Is pt being admited?: No Does the pt Need Aspirin: No Condition: Stable Instructions: Chest Wall Pain, Costochondritis, [id number], Nonspecific Chest Pain, Adult, Chest Wall Pain, [id number] Additional Instructions: Patient to follow-up with primary care in 2 to 3 days. Patient to follow-up with cardiology and orthopedics in 2 to 3 days. Patient to rest. Patient to increase water. Patient to avoid strenuous exercise or heavy lifting until cleared by cardiology and orthopedics.. Patient to take Tylenol or ibuprofen as needed for pain. Patient to take meds as directed. Patient to return to the ER if condition worsens, changes or new symptoms arise. Prescriptions: methylPREDNISolone [Medrol 4MG DOSEPAK (21 tabs)] 4 mg PO DAILY 6 Days #1 tab.ds .pk Referrals: EDELMIRA DING MD [Staff Physician] - 2-3 Days SOFI MARTINEZ MD [Staff Physician] - 2-3 Days GASTON AMADOR MD [Staff Physician] - 2-3 Days Time of Disposition: 04:26
[2020-10-17 05:01] VITALS: BP 101/68
--- NOTE | 2020-10-17 14:09 | Electrocardiograph Report ---
[facility] Test Date: 2020-10-16 Test Time: 18:17:00 Pat Name: TYLER YANG Department: Room: Gender: M [employer] Interviewer: ROSE MARY : 1975 Requested By: NIDA SEGURA Order Number: [id number] Reading MD: Tony Johnson Measurements Intervals [place] Rate: 97 P: 84 GA: 195 QRS: 100 QRSD: 96 T: 59 QT: 341 QTc: 433 Interpretive Statements Sinus rhythm NORMA, consider biatrial enlargement Right axis deviation Compared to ECG 09/10/2020 09:58:39 No significant change Electronically Signed On 10-17-2020 14:09:04 EDT by Tony Johnson
== END 2020-10-17 05:06 | disposition home or self-care (01) ==
LOC: ED 17:52
DX: R07.89 Other chest pain (principal); M94.0 Chondrocostal junction syndrome [Tietze]; M79.673 Pain in unspecified foot; I10 Essential (primary) hypertension; Z21 Asymptomatic human immunodeficiency virus [HIV] infection status; Z98.890 Other specified postprocedural states; Z79.899 Other long term (current) drug therapy
CPT/HCPCS: 36415; 71046; 80053; 82550; 83735; 84100; 84436; 84443; 84484; 85025; 93005

== ENCOUNTER 2020-11-24 20:26 | Observation (INO) | payer OTHER ==
[2020-11-25] MEDS ORDERED: ASPIRIN 325 MG TAB PO ONE (01:01)
--- NOTE | 2020-11-25 01:09 | Event Note ---
Date: 11/25/20 45-year-old male with history of thyrotoxicosis, rhabdo dialysis and gait disturbance related to thyroid dysfunction presents complaining of few days of left lower extremity pain. He describes pain which is sharp and shooting down his leg from his thigh all the way to his calf. He has experienced no swelling but describes a sensation of painful tightness. He denies trauma. He also says he started to have chest pain earlier. Other than that he says he has had some mild urinary hesitancy and urgency but otherwise denies any other symptoms or complaints. Physical exam reveals bilateral exophthalmos. Heart sounds are within normal limits. Lungs are clear to auscultation. There is no mid spinal or CVA tenderness. Normal motor and sensory function of the bilateral lower extremities but with reduced range of motion in the left lower extremity which patient says is due to pain. He is able to bear weight on that extremity. There are 2+ DP pulses b/l. Initial orders include chest pain order set, TSH, CPK, urinalysis. Further testing may be ordered once full assessment/evaluation has been completed.
[2020-11-25 01:25] LABS: Basophils % (Auto) 0.5 % (0.0-1.8); Eosinophils # (Auto) 0.1 K/mm3 (0.0-0.4); Eosinophils % (Auto) 1.4 % (0.0-4.3); Hematocrit 45.5 % (35.5-45.6); Hemoglobin 15.1 gm/dl (11.8-15.2); Lymphocytes # (Auto) 2.2 K/mm3 (1.2-5.4); Lymphocytes % (Auto) 46.2 % (13.4-35.0); Mean Corpuscular HGB Conc 33 % (32-34); Mean Corpuscular Volume 82 fl (84-94); Monocytes # (Auto) 0.5 K/mm3 (0.0-0.8); Platelet Count 251 K/mm3 (140-440); Red Blood Count 5.52 M/mm3 (3.65-5.03); Red Cell Distribution Width 13.8 % (13.2-15.2)
--- NOTE | 2020-11-25 01:56 | XRay Report ---
CHEST 2 VIEWS INDICATION: Dyspnea. COMPARISON: 10/16/2020 FINDINGS: Support devices: None. Heart: Within normal limits. Lungs/Pleura: No acute air space or interstitial disease. No significant pleural effusion. IMPRESSION: No acute findings. Signer Name: Ge Cordero MD Signed: 11/25/2020 1:51 AM Workstation Name: [id number]
[2020-11-25 02:01] LABS: BUN/Creatinine Ratio 14; Blood Urea Nitrogen 11 mg/dL (9-20); Calcium 10.2 mg/dL (8.4-10.2); Hemolysis Index 7
--- NOTE | 2020-11-25 04:19 | Emergency Department Report ---
ED General Adult HPI - General Chief complaint: Dyspnea/Respdistress Stated complaint: WEIGHT LOSS FEET PAIN Time Seen by Provider: 11/25/20 03:07 Source: patient Mode of arrival: Ambulatory Limitations: No Limitations - History of Present Illness Initial comments: 45-year-old -Malaysian male with a past medical history hypothyroidism with history of thyrotoxicosis, rhabdomyolysis and gait disturbance related to his thyroid dysfunction presents emergency department complaining of a few day history of left lower extremity weakness and pain which he says is similar to that when he had a previous thyroid event. The pain is achy and sharp and sh oots up and down his leg with no palliative or provocative factors. Reports no trauma, no redness, no swelling, no fever, chills, sweats, no hemoptysis no hematemesis no hematochezia. He has been experiencing some chest pain and tightness with occasional palpitations. States he has been off of his Tapazole for 2 to 3 weeks because due to him feeling he no longer needed the medication and once he began to experience some chest symptoms he restarted the medication. Currently has been restarted on the medication for the last 3 days. . - Related Data Home Medications Medication Instructions Recorded Confirmed Last Taken Biktarvy 50-200-25 mg (Nf) 1 mg PO QDAY 09/10/20 11/26/20 09/08/20 09:00 Previous Rx's Medication Instructions Recorded Last Taken Type Methimazole [Tapazole] 10 mg PO Q8H #90 09/16/20 Unknown Rx oxyCODONE /ACETAMINOPHEN [Percocet 1 tab PO Q12H #8 tablet 09/16/20 Unknown Rx 5/325 mg] propranoloL [Inderal] 10 mg PO BID #30 tablet 09/16/20 Unknown Rx Gabapentin 300 mg PO BID #14 capsule 11/26/20 Unknown Rx Allergies Allergy/AdvReac Type Severity Reaction Status Date / Time No Known Allergies Allergy Verified 10/16/20 18:08 ED Review of Systems ROS: Stated complaint: WEIGHT LOSS FEET PAIN Other details as noted in HPI ED Past Medical Hx - Past Medical History Hx Hypertension: Yes Hx Congestive Heart Failure: No Hx Diabetes: No Hx Liver Disease: No Hx Sickle Cell Disease: No Hx Arthritis: No Hx Asthma: No Hx COPD: No Hx HIV: Yes Additional medical history: Hyperthyroidism on methimazole - Surgical History Additional Surgical History: Hernia - Social History Smoking Status: Never Smoker Substance Use Type: None - Medications Home Medications: Home Medications Medication Instructions Recorded Confirmed Last Taken Type Biktarvy 50-200-25 mg (Nf) 1 mg PO QDAY 09/10/20 11/26/20 09/08/20 09:00 History Methimazole [Tapazole] 10 mg PO Q8H #90 09/16/20 11/26/20 Unknown Rx oxyCODONE /ACETAMINOPHEN [Percocet 1 tab PO Q12H #8 tablet 09/16/20 11/26/20 Unknown Rx 5/325 mg] propranoloL [Inderal] 10 mg PO BID #30 tablet 09/16/20 11/26/20 Unknown Rx Gabapentin 300 mg PO BID #14 capsule 11/26/20 Unknown Rx ED Physical Exam - General Limitations: No Limitations ED Course Vital Signs 11/25/20 11/25/20 11/25/20 00:50 04:49 05:00 Temperature 98.6 F Pulse Rate 93 H 59 L 59 L Respiratory 18 18 17 Rate Blood Pressure 149/89 148/82 Blood Pressure [Right] O2 Sat by Pulse 99 97 96 Oximetry 11/25/20 11/25/20 11/25/20 05:16 05:30 05:46 Temperature Pulse Rate 81 55 L 57 L Respiratory 21 17 17 Rate Blood Pressure 148/82 144/72 144/72 Blood Pressure [Right] O2 Sat by Pulse 96 99 99 Oximetry 11/25/20 11/25/20 11/25/20 06:00 07:00 07:16 Temperature Pulse Rate 66 55 L 55 L Respiratory 18 16 15 Rate Blood Pressure 128/71 130/82 130/82 Blood Pressure [Right] O2 Sat by Pulse 99 98 99 Oximetry 11/25/20 11/25/20 11/25/20 07:30 07:46 08:00 Temperature Pulse Rate 80 68 66 Respiratory 19 19 17 Rate Blood Pressure 130/82 130/82 130/82 Blood Pressure [Right] O2 Sat by Pulse 98 98 99 Oximetry 11/25/20 11/25/20 11/25/20 08:16 08:30 08:46 Temperature Pulse Rate 59 L 59 L 71 Respiratory 17 15 15 Rate Blood Pressure 130/82 130/82 Blood Pressure [Right] O2 Sat by Pulse 98 99 97 Oximetry 08/11/25/20 11/25/20 09:01 09:07 09:16 Temperature Pulse Rate 71 66 Respiratory 19 12 21 Rate Blood Pressure 144/85 144/85 Blood Pressure [Right] O2 Sat by Pulse 99 99 97 Oximetry 11/25/20 11/25/20 11/25/20 09:18 09:30 09:46 Temperature 97.8 F Pulse Rate 66 66 71 Respiratory 12 18 18 Rate Blood Pressure 132/87 132/87 Blood Pressure 144/85 [Right] O2 Sat by Pulse 98 99 97 Oximetry 11/25/20 11/25/20 11/25/20 10:00 10:16 10:30 Temperature Pulse Rate 74 71 96 H Respiratory 16 13 23 Rate Blood Pressure 135/85 135/85 138/85 Blood Pressure [Right] O2 Sat by Pulse 99 98 97 Oximetry 11/25/20 11/25/20 11/25/20 10:46 11:00 11:16 Temperature Pulse Rate 77 71 68 Respiratory 19 17 17 Rate Blood Pressure 138/85 141/84 141/84 Blood Pressure [Right] O2 Sat by Pulse 97 96 99 Oximetry 11/25/20 11/25/20 11/25/20 11:30 11:46 12:00 Temperature Pulse Rate 101 H 98 H 75 Respiratory 13 13 16 Rate Blood Pressure 140/78 140/78 145/89 Blood Pressure [Right] O2 Sat by Pulse 98 98 96 Oximetry 11/25/20 11/25/20 11/25/20 12:01 12:16 12:30 Temperature Pulse Rate 79 65 90 Respiratory 14 22 Rate Blood Pressure 145/89 145/89 130/82 Blood Pressure [Right] O2 Sat by Pulse 97 97 Oximetry 11/25/20 11/25/20 11/25/20 12:46 13:00 13:16 Temperature Pulse Rate 80 69 94 H Respiratory 12 12 12 Rate Blood Pressure 130/82 124/86 124/86 Blood Pressure [Right] O2 Sat by Pulse 95 96 96 Oximetry 11/25/20 11/25/20 11/25/20 13:30 13:46 14:00 Temperature Pulse Rate 102 H 82 54 L Respiratory 18 14 15 Rate Blood Pressure 158/99 158/99 125/75 Blood Pressure [Right] O2 Sat by Pulse 97 98 98 Oximetry 11/25/20 11/25/20 11/25/20 14:16 14:30 14:46 Temperature Pulse Rate 79 64 76 Respiratory 17 17 18 Rate Blood Pressure 125/75 119/71 119/71 Blood Pressure [Right] O2 Sat by Pulse 99 97 97 Oximetry 11/25/20 11/25/20 11/25/20 14:48 15:00 15:16 Temperature Pulse Rate 64 75 59 L Respiratory 12 10 L 12 Rate Blood Pressure 124/64 124/64 Blood Pressure 119/71 [Right] O2 Sat by Pulse 97 96 98 Oximetry 11/25/20 11/25/20 11/25/20 15:30 15:46 16:00 Temperature Pulse Rate 60 57 L 64 Respiratory 14 18 15 Rate Blood Pressure 105/59 105/59 114/65 Blood Pressure [Right] O2 Sat by Pulse 97 96 97 Oximetry 11/25/20 11/25/20 11/25/20 16:16 16:30 16:46 Temperature Pulse Rate 66 82 83 Respiratory 16 20 13 Rate Blood Pressure 114/65 101/53 101/53 Blood Pressure [Right] O2 Sat by Pulse 97 99 98 Oximetry 11/25/20 11/25/20 11/25/20 17:00 17:16 17:30 Temperature Pulse Rate 63 65 62 Respiratory 14 16 16 Rate Blood Pressure 101/53 101/53 112/57 Blood Pressure [Right] O2 Sat by Pulse 97 98 97 Oximetry 11/25/20 11/25/20 11/25/20 17:46 18:00 18:16 Temperature Pulse Rate 63 56 L 59 L Respiratory 20 15 15 Rate Blood Pressure 112/57 115/62 115/62 Blood Pressure [Right] O2 Sat by Pulse 98 96 96 Oximetry 11/25/20 11/25/20 11/25/20 18:30 18:46 19:00 Temperature Pulse Rate 55 L 65 64 Respiratory 16 21 17 Rate Blood Pressure 117/69 117/69 119/74 Blood Pressure [Right] O2 Sat by Pulse 98 93 99 Oximetry 11/25/20 11/25/20 11/25/20 19:16 19:30 19:40 Temperature Pulse Rate 55 L 57 L 57 L Respiratory 16 16 16 Rate Blood Pressure 117/69 112/51 112/51 Blood Pressure [Right] O2 Sat by Pulse 97 98 98 Oximetry 11/25/20 11/25/20 11/25/20 19:50 20:00 20:10 Temperature Pulse Rate 53 L 67 90 Respiratory 17 17 15 Rate Blood Pressure 112/51 105/47 105/47 Blood Pressure [Right] O2 Sat by Pulse 96 99 98 Oximetry 11/25/20 11/25/20 11/25/20 20:20 20:30 20:40 Temperature Pulse Rate 60 70 54 L Respiratory 15 25 H 21 Rate Blood Pressure 105/47 119/68 119/68 Blood Pressure [Right] O2 Sat by Pulse 99 98 99 Oximetry 11/25/20 20:50 Temperature Pulse Rate 92 H Respiratory 13 Rate Blood Pressure 119/68 Blood Pressure [Right] O2 Sat by Pulse 100 Oximetry - Consultations Consultation #1: 11/25/20 04:[address] Olivera for admission he advised me at this present time he is overwhelmed and will call me back at a later time. ED Medical Decision Making - Lab Data Result diagrams: 11/25/20 01:07 11/26/20 05:26 - EKG Data EKG shows normal: sinus rhythm Rate: normal - EKG Data Interpretation: other (Jean 1. EKG taken at 3:55 AM and read at 407) - Radiology Data Radiology results: report reviewed [facility] [address] [place] [address] XRay Report Signed Patient: TYLER YANG MR#: [id number] : 1975 Acct:[id number] Age/Sex: 45 / M ADM Date: 11/24/20 Loc: ED Attending Dr: Ordering Physician: MAINOR AMATO MD Date of Service: 11/25/20 Procedure(s): XR chest routine 2V Accession Number(s): [id number] cc: MAINOR AMATO MD Fluoro Time In Minutes: CHEST 2 VIEWS INDICATION: Dyspnea. COMPARISON: 10/16/2020 FINDINGS: Support devices: None. Heart: Within normal limits. Lungs/Pleura: No acute air space or interstitial disease. No significant pleural effusion. IMPRESSION: No acute findings. Signer Name: Ge Cordero MD Signed: 11/25/2020 1:51 AM Workstation Name: [id number] Transcribed By: ES Dictated By: Ge Cordero MD Electronically Authenticated By: Ge Cordero MD Signed Date/Time: 11/25/20150 DD/ 0150 TD/TT: Print Cancel - Medical Decision Making 45-year-old -Malaysian male with noncompliance issues of his hyper thyroidism was just recently restarted his Tapazole with presenting with palpitations, chest pain, leg pain weakness since and stiffness as well as abnormal EKG are suggestive of a thyrotoxicosis evolution. Plan is to admit due to these new EKG changes and thyroid issues. Critical care attestation.: If time is entered above; I have spent that time in minutes in the direct care of this critically ill patient, excluding procedure time. ED Disposition Clinical Impression: Thyrotoxicosis Disposition: ADMITTED INPATIENT Is pt being admited?: Yes Does the pt Need Aspirin: No Condition: Stable
[2020-11-25] MEDS ORDERED: dexAMETHasone 4 MG/ML VIAL IV ONE (05:48)
[2020-11-25] MEDS ORDERED: METHIMAZOLE 10 MG PO SCH (09:45)
--- NOTE | 2020-11-25 09:55 | Electrocardiograph Report ---
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
[2020-11-25] MEDS ORDERED: BIKTARVY PO SCH (10:00)
--- NOTE | 2020-11-25 10:46 | History and Physical Report ---
History of Present Illness Date of examination: 11/25/20 Date of admission: 11/25/20 05:38 Chief complaint: Lower extremity pain History of present illness: 45-year-old male with history of thyrotoxicosis, HIV, chronic gait disturbance related to thyroid dysfunction presents complaining of few days of left lower extremity pain. Patient states that he has been taking methimazole since he was diagnosed with thyrotoxicosis but recently he stopped taking it. But when he developed lower extremity pain he started to take methimazole again. He states that his symptom resembles when he was first diagnosed with thyrotoxicosis. He describes pain which is sharp and shooting down his leg from his thigh all the way to his calf. He has experienced no swelling but describes a sensation of painful tightness. His chest x-ray is unremarkable, TSH level is very low with elevated free T4 level. His cardiac enzymes has been negative. CPK revealed to be 588. His heart rate was 92 on admission, BP noted to be stable. Patient is being admitted for observation for elevated CPK , thyrotoxicosis and lower extremity pain. - Past Medical History Previous Medical History?: No --Hypertension: Yes Additional medical history: Hyperthyroidism on methimazole, HIV on Biktarvy - Surgical History Hernia - Social History Smoking Status: Never Smoker Substance Use Type: None -Family history Htn Review of System: Constitutional: no fever, no chills, no weight loss Ears, eyes, nose, mouth and throat: no nasal congestion, no nasal discharge, no sinus pressure, no vision change, no red eye. Neck: No neck pain or rigidity. Cardiovascular: No chest pain, no orthopnea, no palpitations, no leg swelling Respiratory: No shortness of breath, no cough, no congestion, no wheezing Gastrointestinal: no abdominal pain, no nausea, no vomiting Genitourinary : no dysuria, no hematuria Musculoskeletal: no joint swelling or muscle ache Integumentary: no rash, no pruritis Neurological: no parathesias, no numbness, no tingling, + lower extremity pain Endocrine: no cold or heat intolerance, no polyuria or polydipsia Hematologic/Lymphatic: no easy bruising, no easy bleeding, no gland swelling Allergic/Immunologic: no urticaria, no angioedema. Medications and Allergies Allergies Allergy/AdvReac Type Severity Reaction Status Date / Time No Known Allergies Allergy Verified 10/16/20 18:08 Home Medications Medication Instructions Recorded Confirmed Last Taken Type Biktarvy 50-200-25 mg (Nf) 1 mg PO QDAY 09/10/20 11/26/20 09/08/20 09:00 History Methimazole [Tapazole] 10 mg PO Q8H #90 09/16/20 11/26/20 Unknown Rx oxyCODONE /ACETAMINOPHEN [Percocet 1 tab PO Q12H #8 tablet 09/16/20 11/26/20 Unknown Rx 5/325 mg] propranoloL [Inderal] 10 mg PO BID #30 tablet 09/16/20 11/26/20 Unknown Rx Gabapentin 300 mg PO BID #14 capsule 11/26/20 Unknown Rx Active Meds: Active Medications Enoxaparin Sodium (Enoxaparin 40 Mg/0.4 Ml Inj) 40 mg SUB-Q QDAY@2200 ETELVINA; Protocol Sodium Chloride (Nacl 0.9% 1000 Ml) 1,000 mls @ 100 mls/hr IV DIRECT ETELVINA Methimazole (Methimazole 5 Mg Tab) 10 mg PO Q8HR ETELVINA Miscellaneous Medication (Biktarvy 50-200-25 Mg (Nf)) 1 mg PO QDAY ETELVINA Oxycodone/Acetaminophen (Oxycodone /Acetaminophen 5-325mg Tab) 1 tab PO Q12H ETELVINA Propranolol HCl (Propranolol 10 Mg Tab) 10 mg PO BID ETELVINA Exam - Physical Exam Narrative exam: GENERAL: -Bulgarian male lying on bed appeared to be in no discomfort. HEENT: Normocephalic. Atraumatic. No conjunctival congestion or icterus. Patient has moist mucous membranes. bilateral exophthalmos NECK: Supple. Trachea midline. CHEST/LUNGS: Clear to auscultated bilaterally, breathing nonlabored. No wheezes crackles or rhonchi. HEART/CARDIOVASCULAR: Regular in rate and rhythm. S1 and S2 positive. ABDOMEN: Abdomen is soft, nontender. Patient has normal bowel sounds. SKIN: There is no rash. Warm and dry. NEURO: Normal motor and sensory function of the bilateral lower extremities but with reduced range of motion in the left lower extremity which patient says is due to pain. He is able to bear weight on that extremity. MUSCULOSKELETAL: No joint effusion or tenderness. EXTRIMITY: There are 2+ DP pulses b/l. PSYCH: Cooperative. - Constitutional Vitals: Temp Pulse Resp BP Pulse Ox 97.8 F 66 12 144/85 98 11/25/20 09:18 11/25/20 09:18 11/25/20 09:18 11/25/20 09:18 11/25/20 09:18 HEART Score - HEART Score Troponin: Troponin T < 0.010 ng/mL (0.00-0.029) 11/25/20 06:42 Results - Labs CBC & Chem 7: 11/25/20 01:07 11/26/20 05:26 Labs: Abnormal lab results 11/25/20 11/25/20 11/25/20 Range/Units 01:07 01:07 01:07 RBC 5.52 H (3.65-5.03) M/mm3 MCV 82 L (84-94) fl MCH 27 L (28-32) pg Lymph % (Auto) 46.2 H (13.4-35.0) % [place] % (Auto) 10.0 H (0.0-7.3) % Total Creatine Kinase 588 H (55-170) units/L TSH < 0.005 L (0.270-4.200) mlU/mL Free T4 (0.76-1.46) ng/dL 11/25/20 Range/Units 09:44 RBC (3.65-5.03) M/mm3 MCV (84-94) fl MCH (28-32) pg Lymph % (Auto) (13.4-35.0) % [place] % (Auto) (0.0-7.3) % Total Creatine Kinase (55-170) units/L TSH (0.270-4.200) mlU/mL Free T4 3.77 H (0.76-1.46) ng/dL - Imaging and Cardiology Chest x-ray: report reviewed Assessment and Plan -- Thyrotoxicosis Continue methimazole 10 mg 3 times a day Patient has elevated T4 and low TSH Patient needs radioactive iodine uptake as outpatient/follow-up with endocrino logy for ablation of thyroid activity Propranolol 10 mg twice a day added --Noncompliance, counseled -- 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 Will follow CPK level, continue IV fluid. We will set up home health PT OT on discharge. Patient was counseled aggressively to be compliance with the medications and to follow-up with executive pilot following discharge. We will admit this patient on observation status. If CPK level normalizes and vitals remain stable patient will be possible discharge tomorrow morning.
[2020-11-25] MEDS ORDERED: SODIUM CHLORIDE 0.9% 1000 ML 1,000 ML IV SCH ×2 (11:00→15:00)
[2020-11-25] MEDS: oxyCODONE /ACETAMINOPHEN 5-325MG TAB PO SCH ×2 (11:30→23:26)
[2020-11-25] MEDS ORDERED: DOLUTEGRAVIR 50 MG TAB PO SCH (12:00)
[2020-11-25] MEDS: PROPRANOLOL 10 MG TAB PO SCH ×2 (12:01→22:17)
[2020-11-25] MEDS: methIMAzole 5 MG TAB PO SCH ×2 (16:11→22:16)
[2020-11-25] MEDS: TENOFOVIR 300 MG TAB PO SCH (16:12)
[2020-11-25] MEDS: EMTRICITABINE 200 MG CAP PO SCH (16:14)
[2020-11-25] MEDS ORDERED: ENOXAPARIN 40 MG/0.4 ML INJ SUB-Q SCH (22:00)
[2020-11-25] MEDS: GABAPENTIN 300 MG CAP PO SCH (22:16)
[2020-11-26] MEDS: methIMAzole 5 MG TAB PO SCH ×2 (05:11→15:11)
[2020-11-26 06:08] LABS: Blood Urea Nitrogen 11 mg/dL (9-20); Calcium 9.1 mg/dL (8.4-10.2); Hemolysis Index 4
[2020-11-26 06:24] LABS: BUN/Creatinine Ratio 22
[2020-11-26] MEDS ORDERED: PANTOPRAZOLE 40 MG TAB PO SCH (07:30)
[2020-11-26] MEDS: GABAPENTIN 300 MG CAP PO SCH (10:00)
[2020-11-26] MEDS: PROPRANOLOL 10 MG TAB PO SCH (10:04)
[2020-11-26] MEDS: TENOFOVIR 300 MG TAB PO SCH (10:17)
[2020-11-26] MEDS: EMTRICITABINE 200 MG CAP PO SCH (10:18)
--- NOTE | 2020-11-26 14:00 | Discharge Summary ---
Providers - Providers Date of Admission: 11/25/20 05:38 Date of discharge: 11/26/20 Attending physician: JEFFERY MUÑOZ Primary care physician: NURSE MANAGER Hospitalization Condition: Stable Hospital course: 45-year-old male with history of thyrotoxicosis, HIV, chronic gait disturbance related to thyroid dysfunction presents complaining of few days of left lower extremity pain. Patient states that he has been taking methimazole since he was diagnosed with thyrotoxicosis but recently he stopped taking it. But when he developed lower extremity pain he started to take methimazole again. He states that his symptom resembles when he was first diagnosed with thyrotoxicosis. He describes pain which is sharp and shooting down his leg from his thigh all the way to his calf. He has experienced no swelling but describes a sensation of painful tightness. His chest x-ray is unremarkable, TSH level is very low with elevated free T4 level. His cardiac enzymes has been negative. CPK revealed to be 588. His heart rate was 92 on admission, BP noted to be stable. Patient was admitted for observation for elevated CPK , thyrotoxicosis and lower extremity pain. He was initiated on methimazole, propranolol. Placed on IV fluid and CPK level was followed and was normalized. Patient's vitals remained stable. We will set up home health PT OT on discharge. Patient was counseled aggressively to be compliance with the medications and to follow-up with manager telecom following discharge. Patient verbalized understanding and was discharged home with outpatient follow-up. Disposition: HOME HEALTH CARE SERVICE Final Discharge Diagnosis (Prints w/discharge instructions): -- Thyrotoxicosis. -- Myopathy. -- Rhabdomyolysis. -- Unsteady gait, chronic. -- HIV (human immunodeficiency virus infection) Time spent for discharge: 34 minutes Core Measure Documentation - Palliative Care Palliative Care/ Comfort Measures: Not Applicable - Core Measures Any of the following diagnoses?: none Exam - Physical Exam Narrative exam: GENERAL: -Guinean male lying on bed appeared to be in no discomfort. HEENT: Normocephalic. Atraumatic. No conjunctival congestion or icterus. Patient has moist mucous membranes. bilateral exophthalmos NECK: Supple. Trachea midline. CHEST/LUNGS: Clear to auscultated bilaterally, breathing nonlabored. No wheezes crackles or rhonchi. HEART/CARDIOVASCULAR: Regular in rate and rhythm. S1 and S2 positive. ABDOMEN: Abdomen is soft, nontender. Patient has normal bowel sounds. SKIN: There is no rash. Warm and dry. NEURO: Normal motor and sensory function of the bilateral lower extremities but with reduced range of motion in the left lower extremity which patient says is due to pain. He is able to bear weight on that extremity. MUSCULOSKELETAL: No joint effusion or tenderness. EXTRIMITY: There are 2+ DP pulses b/l. PSYCH: Cooperative. - Constitutional Vitals: Temp Pulse Resp BP Pulse Ox 98.3 F 87 18 145/79 100 11/26/20 11:36 11/26/20 11:36 11/26/20 11:36 11/26/20 11:36 11/26/20 11:36 Plan Activity: advance as tolerated, fall precautions Weight Bearing Status: Weight Bear as Tolerated Diet: regular Additional Instructions: Follow-up at [place] in 1 week. Follow-up with endocrinology in 1 to 2 weeks Follow up with: PRIMARY CARE, [Primary Care Provider] - 7 Days Prescriptions: Gabapentin 300 mg PO BID #14 capsule
[2020-11-26] MEDS: oxyCODONE /ACETAMINOPHEN 5-325MG TAB PO SCH (15:20)
[2020-11-26 15:28] VITALS: BP 141/79
--- NOTE | 2020-11-27 10:09 | Electrocardiograph Report ---
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
== END 2020-11-26 17:00 | disposition home health service (06) ==
LOC: ED 20:26 → 3A 11-25 05:38 → 4A 11-25 19:10
PROVIDERS: ADMIT Internal Medicine Geriatric Medicine; ATTEND Internal Medicine
DX: E05.90 Thyrotoxicosis, unspecified without thyrotoxic crisis or storm (principal); M62.82 Rhabdomyolysis; R26.81 Unsteadiness on feet; Z91.14 Patient's other noncompliance with medication regimen; Z21 Asymptomatic human immunodeficiency virus [HIV] infection status; Z79.899 Other long term (current) drug therapy; Z98.890 Other specified postprocedural states
CPT/HCPCS: 36415; 71046; 80048; 82550; 84439; 84443; 84484; 85025; 93005; 96372; 99285; G0378; J1650

== ENCOUNTER 2020-12-22 12:30 | Emergency (ER) | payer OTHER ==
[2020-12-22 12:57] VITALS: BP 148/102
--- NOTE | 2020-12-22 14:19 | Event Note ---
ED Screening Note ED Screening Note: 45-year-old -Latvian male presents to the emergency room complaining of chronic hand and foot pain. Patient reports that he has no new injury. He states that he was recently hospitalized for cellulitis. Patient reports today patient had them on vancomycin Toradol and morphine. Patient has not changed his dressing in 3 to 4 days. Patient comes in requesting and demanding to be seen. Patient was threatening request another provider. Patient was then asked to sit out into the waiting area. Patient eloped. This initial assessment/diagnostic orders/clinical plan/treatment(s) is/are subject to change based on patients health status, clinical progression and re- assessment by fellow clinical providers in the ED. Further treatment and workup at subsequent clinical providers discretion. Patient/guardian urged not to elope from the ED as their condition may be serious if not clinically assessed and managed. Initial orders include:
== END 2020-12-22 16:27 | disposition left against medical advice (07) ==
LOC: ED 12:30
DX: M79.643 Pain in unspecified hand (principal); M79.673 Pain in unspecified foot; Z53.21 Procedure and treatment not carried out due to patient leaving prior to being seen by health care provider

== ENCOUNTER 2020-12-23 16:40 | Emergency (ER) | payer OTHER ==
[2020-12-23] MEDS ORDERED: KETOROLAC 30 MG/1 ML INJ IM ONE (20:58)
[2020-12-23] MEDS ORDERED: predniSONE 50 MG TAB PO ONE (20:58)
--- NOTE | 2020-12-23 21:02 | Emergency Department Report ---
ED Extremity Problem HPI - General Chief complaint: Pain General Stated complaint: LOWER EXTREMITY PROBLEM Source: patient Mode of arrival: Ambulatory Limitations: No Limitations - History of Present Illness Initial comments: Patient is a 45-year-old -[place] male with a history of hyperthyroidism, HIV and chronic lower extremity pain with chronic baseline unsteady gait presents to the ED with acute exacerbation of his chronic bilateral lower extremity pain characterized by severe bilateral knee, ankle and foot pain for the last 1 week. Patient states the pain is especially worse with movement or any active range of motion of lower extremities. Patient denies fa ll, traumatic injury, nausea, vomiting, dizziness, syncope, low back pain, chest pain or shortness of breath, fever, chills, cough, heavy lifting or numbness and tingling or weakness of lower extremities bilaterally. MD Complaint: extremity pain (Bilateral lower extremity pain, chronic), joint paint (Bilateral knee, lower leg and ankle pain) -: Sudden, week(s) (1) Location: bilateral lower extremity History of Same: Yes (Chronic) -: Yes myalgia, Yes arthralgia, No associated dyspnea, No associated chest pain Radiation: distal Severity scale (0 -10): 8 Quality: aching, sharp Consistency: constant Improves with: nothing Worsens with: weight bearing, walking, exertion, palpation Associated Symptoms: denies other symptoms, arthralgias. denies: chest pain, shortness of breath, fever, myalgias - Related Data Home Medications Medication Instructions Recorded Confirmed Last Taken Biktarvy 50-200-25 mg (Nf) 1 mg PO QDAY 09/10/20 11/26/20 09/08/20 09:00 Previous Rx's Medication Instructions Recorded Last Taken Type Methimazole [Tapazole] 10 mg PO Q8H #90 09/16/20 Unknown Rx oxyCODONE /ACETAMINOPHEN [Percocet 1 tab PO Q12H #8 tablet 09/16/20 Unknown Rx 5/325 mg] propranoloL [Inderal] 10 mg PO BID #30 tablet 09/16/20 Unknown Rx Baclofen 20 mg PO Q12H PRN #20 tablet 12/23/20 Unknown Rx Gabapentin 300 mg PO BID #30 capsule 12/23/20 Unknown Rx Naproxen 500 mg PO Q12H PRN #30 tablet 12/23/20 Unknown Rx Allergies Allergy/AdvReac Type Severity Reaction Status Date / Time No Known Allergies Allergy Verified 12/23/20 20:46 ED Review of Systems ROS: Stated complaint: LOWER EXTREMITY PROBLEM Other details as noted in HPI Constitutional: denies: chills, fever Eyes: denies: eye pain, eye discharge, vision change ENT: denies: ear pain, throat pain Respiratory: denies: cough, shortness of breath, wheezing Cardiovascular: denies: chest pain, palpitations Endocrine: no symptoms reported Gastrointestinal: denies: abdominal pain, nausea, diarrhea Genitourinary: denies: urgency, dysuria Musculoskeletal: arthralgia (Bilateral lower extremity pain), myalgia. denies: back pain, joint swelling Skin: denies: rash, lesions Neurological: denies: headache, weakness, paresthesias Psychiatric: denies: anxiety, depression Hematological/Lymphatic: denies: easy bleeding, easy bruising ED Past Medical Hx - Past Medical History Hx Hypertension: Yes Hx CVA: No Hx Heart Attack/AMI: No Hx Congestive Heart Failure: No Hx Diabetes: No Hx Deep Vein Thrombosis: No Hx Pulmonary Embolism: No Hx GERD: No Hx Liver Disease: No Hx Renal Disease: No Hx Sickle Cell Disease: No Hx Arthritis: No Hx Headaches / Migraines: No Hx Seizures: No Hx Kidney Stones: No Hx Psychiatric Treatment: No Hx Asthma: No Hx COPD: No Hx Tuberculosis: No Hx Dementia: No Hx HIV: Yes Additional medical history: Hyperthyroidism on methimazole - Surgical History Hx Coronary Stent: No Hx Open Heart Surgery: No Hx Pacemaker: No Hx Internal Defibrillator: No Hx Cholecystectomy: No Hx Appendectomy: No Hx Breast Surgery: No Additional Surgical History: Hernia - Social History Smoking Status: Never Smoker Substance Use Type: None - Medications Home Medications: Home Medications Medication Instructions Recorded Confirmed Last Taken Type Biktarvy 50-200-25 mg (Nf) 1 mg PO QDAY 09/10/20 11/26/20 09/08/20 09:00 History Methimazole [Tapazole] 10 mg PO Q8H #90 09/16/20 11/26/20 Unknown Rx oxyCODONE /ACETAMINOPHEN [Percocet 1 tab PO Q12H #8 tablet 09/16/20 11/26/20 Unknown Rx 5/325 mg] propranoloL [Inderal] 10 mg PO BID #30 tablet 09/16/20 11/26/20 Unknown Rx Baclofen 20 mg PO Q12H PRN #20 tablet 12/23/20 Unknown Rx Gabapentin 300 mg PO BID #30 capsule 12/23/20 Unknown Rx Naproxen 500 mg PO Q12H PRN #30 tablet 12/23/20 Unknown Rx ED Physical Exam - General Limitations: No Limitations General appearance: alert, in no apparent distress - Head Head exam: Present: atraumatic, normocephalic, normal inspection - Eye Eye exam: Present: normal appearance, PERRL, EOMI Pupils: Present: normal accommodation - ENT ENT exam: Present: normal exam, normal orophraynx, mucous membranes moist, TM's normal bilaterally, normal external ear exam - Neck Neck exam: Present: normal inspection, full ROM - Respiratory Respiratory exam: Present: normal lung sounds bilaterally. Absent: respiratory distress, wheezes, rales, rhonchi, chest wall tenderness, accessory muscle use, decreased breath sounds, prolonged expiratory - Cardiovascular Cardiovascular Exam: Present: regular rate, normal rhythm, normal heart sounds. Absent: systolic murmur, diastolic murmur, rubs, gallop - GI/Abdominal GI/Abdominal exam: Present: soft, normal bowel sounds. Absent: tenderness, guarding, rebound, hyperactive bowel sounds, hypoactive bowel sounds, organomegaly - Extremities Exam Extremities exam: Present: normal inspection, full ROM, tenderness (Palpable bilateral knee, ankle and feet tenderness), normal capillary refill. Absent: pedal edema, joint swelling, calf tenderness - Back Exam Back exam: Present: normal inspection, full ROM. Absent: tenderness, CVA tenderness (R), CVA tenderness (L), muscle spasm, paraspinal tenderness - Neurological Exam Neurological exam: Present: alert, oriented X3, CN II-XII intact, normal gait, reflexes normal - Psychiatric Psychiatric exam: Present: normal affect, normal mood - Skin Skin exam: Present: warm, dry, intact, normal color. Absent: rash ED Course Vital Signs 12/23/20 21:25 Temperature 97.7 F Pulse Rate 77 Respiratory 12 Rate Blood Pressure 158/102 [Right] O2 Sat by Pulse 100 Oximetry ED Medical Decision Making - Lab Data Result diagrams: 12/23/20 21:08 12/23/20 21:08 - Medical Decision Making This is a 45-year-old -[place] male with a history of hyperthyroidism, HIV and chronic lower extremity pain with chronic baseline unsteady gait presents to the ED with acute exacerbation of his chronic bilateral lower extremity pain characterized by severe bilateral knee, ankle and foot pain for the last 1 week. Patient states the pain is especially worse with movement or any active range of motion of lower extremities. In the ED, patient is alert and oriented x3 and is not in any distress. Patient however appears to be in pain on physical exam, and demands narcotic pain medications being given to him to control his chronic pain. Basic lab test results were reviewed and are all nonactionable except for mildly elevated CK level was 358 which is significantly improved from the previous level of 588 about 1 month ago. Patient was discharged home on pain medications and advised to follow-up with his primary care physician in 7 to 10 days for reevaluation or return to the ED immediately if symptoms get worse. - Differential Diagnosis Chronic pain; osteoarthritis; muscle strain; muscle spasm Critical care attestation.: If time is entered above; I have spent that time in minutes in the direct care of this critically ill patient, excluding procedure time. ED Disposition Clinical Impression: Unsteady gait when walking, Chronic pain syndrome, Muscle spasms of both lower extremities Disposition: 01 HOME / SELF CARE / HOMELESS Is pt being admited?: No Does the pt Need Aspirin: No Condition: Stable Instructions: Muscle Cramps and Spasms, [id number], Chronic Pain, Adult, Pain Medicine Instructions, [id number] Additional Instructions: All lab test results were reviewed and are all nonactionable. Therefore take medications with food, drink plenty of fluids and follow-up with your primary care physician in 7 to 10 days for reevaluation. Return to the ED immediately if symptoms get worse. Prescriptions: Baclofen 20 mg PO Q12H PRN #20 tablet PRN Reason: Muscle Spasm Gabapentin 300 mg PO BID #30 capsule Naproxen 500 mg PO Q12H PRN #30 tablet PRN Reason: Pain , Severe (7-10) Referrals: [facility] [Provider Group] - 7-10 days Time of Disposition: 22:58 Print Language: GREENLAND[place]
[2020-12-23 21:26] VITALS: BP 158/102
[2020-12-23 21:42] LABS: Hematocrit 47.8 % (35.5-45.6); Hemoglobin 15.7 gm/dl (11.8-15.2); Mean Corpuscular HGB Conc 33 % (32-34); Mean Corpuscular Volume 83 fl (84-94); Platelet Count 261 K/mm3 (140-440); Red Blood Count 5.72 M/mm3 (3.65-5.03); Red Cell Distribution Width 13.9 % (13.2-15.2)
[2020-12-23 21:50] LABS: Alanine Aminotransferase 40 units/L (7-56); Albumin 4.7 g/dL (3.9-5); Blood Urea Nitrogen 15 mg/dL (9-20); Calcium 9.7 mg/dL (8.4-10.2); Hemolysis Index 10
[2020-12-23 21:53] LABS: BUN/Creatinine Ratio 25
[2020-12-23 23:59] LABS: Total Cells Counted 100
[2020-12-24] LABS: Platelet Estimate Consistent w Auto; RBC Morphology Normal
== END 2020-12-23 23:36 | disposition home or self-care (01) ==
LOC: ED 16:40
DX: R26.89 Other abnormalities of gait and mobility (principal); M62.838 Other muscle spasm; G89.4 Chronic pain syndrome; Z21 Asymptomatic human immunodeficiency virus [HIV] infection status; E05.90 Thyrotoxicosis, unspecified without thyrotoxic crisis or storm; Z98.890 Other specified postprocedural states
CPT/HCPCS: 36415; 80053; 82550; 83735; 84100; 85007; 85025; 96372; 99283; J1885; J7512